=== PATIENT | female | born 1940 | race Caucasian/White ===

== ENCOUNTER 2024-02-07 20:36 | Inpatient (IN) | payer MEDICARE, OTHER, SELFPAY ==
[2024-02-07] VITALS (9 sets, daily range): BP systolic 125–142; BP diastolic 49–71; BMI 16.1
--- NOTE | 2024-02-07 14:17 | ED.GENMED ---
History of Present Illness
General
Chief Complaint: Swelling
Source: patient
Time Seen by Provider: 02/07/24 13:50
History of Present Illness
History of Present Illness:
Patient is a 83-year-old woman with history of myelodysplastic syndrome followed by Krystal Zepeda not on anticoagulation, CKD, history of GI bleed, hypertension, valvular disease followed by cardiology here at [facility] presenting to the
emergency department with lower extremity swelling and elevated bilirubin. Patient states that she went to her oncologist today for a routine checkup. She had blood work done a few days ago which does show elevated total bilirubin. She does have
history of elevated bilirubin. Per oncologist note it does appear that it was related to dilated CBD. She was supposed to follow-up with GI but has not. He sent here here for CT scan as well as possible MRCP. Patient does state that she has some
abdominal pain. No nausea no vomiting. Is able to tolerate p.o. In addition to those been having worsening bilateral lower extremity swelling. She is unaware if she is ever been diagnosed with heart failure. Per chart review it appears that
patient did have an echo done last year with normal EF. She is not on Lasix. She states that the swelling has acutely worsened. Her right leg is now also more erythematous and tender. She did have a small cut to the anterior manuel. Denies any
purulent drainage. It is weeping. She is not on anticoagulation. No history of DVT. She is having difficulty ambulating secondary to the pain no fevers or chills. She does state that she is never had an infection before.
Past History
Past History
ED Past Medical History: Arrthythmia (Atrial fibrillation), CHF, HTN, Renal failure and Other (myelodysplastic syndrome, chronic Mccormick, ambulatory dysfunction, colitis, pneumonia, GI bleeding.)
ED Past Surgical History: None
Social History
Tobacco: Non-smoker
Alcohol: None
Drug: None
Personal: Single
Living: halfway
Employment: Not employed
Family History
Family History: Other
Phy Exam
Physical Exam
Physical Exam:
GENERAL: in no acute distress
HEENT: normocephalic, extraocular movements intact, moist oral mucosa
NECK: normal inspection
RESPIRATORY: no respiratory distress, crackles at bases bilaterally
CARDIOVASCULAR: regular rate and rhythm
ABDOMEN/: soft, non-distended, tender into bilateral upper quadrants, no rebound or guarding
EXTREMITIES: Bilateral 3+ pitting edema. Right lower extremity with diffuse erythema to the lower leg anteriorly as well as to the dorsal foot, diffusely tender, some old scabs/ulcerations no purulent drainage
NEUROLOGIC: awake and alert, moves all extremities
SKIN: warm
Scores
Heart Failure Risk
Heart Failure Risk Score: Yes
History of Stroke or TIA: No
History of intubation for respiratory distress: No
Heart rate on ED arrival >/= 110: No
SaO2 <90% on arrival on room air: Yes
HR >/=110 during 3min walk test (or too ill to perform test): Yes
ECG has acute ischemic changes: No
Urea >/=12mmol/L (BUN 33.6mg/dL): Yes
Serum CO2>/=35mmol/L: No
Troponin I or T elevated to [place] Level (0.4mg/dL): No
NT-proBNP >/=5,000ng/L (5,000pg/ml): Yes
HF Risk Score: 5
Admission Status: VERY HIGH RISK 39.8% Consider admission to hospital
Course
Orders/Labs/Results
Orders:
Orders
02/07/24 14:16
Electrocardiogram (*1) Urgent
Reason for Study: Abdominal Pain
EKG- Treatment ONCE
CR Chest - 2 Views Urgent
Comment:
Reason For Exam: SOB, crackles bases
US Periph Venous LOWER Ext Brijesh Urgent
Comment:
Reason For Exam: BLE edema
02/07/24 14:43
Complete Blood Count/With Diff Urgent
Comprehensive Metabolic Panel Urgent
Magnesium Urgent
NT-proBNP Urgent
Urinalysis Reflex To Culture Urgent
Date Specimen was Collected: 02/07/24
Time Specimen was Collected: 14:21
Urine Microscopic Reflex Cult Urgent
Urine Culture Urgent
MARLON Source: U
Specimen Description:
Date Specimen was Collected: 02/07/24
Time Specimen was Collected: 14:21
02/07/24 15:50
CT Abd/pel Without Iv Or Oral Urgent
Comment:
Reason For Exam: abdominal pain, elevated tbili
02/07/24 18:54
Cephalexin Monohydrate [Keflex] 500 mg PO NOW STA
Abnormal Lab Results
02/07/24
14:43
WBC 12.9 H 10^3/uL
(4.8-10.8)
RBC 2.35 L 10^6/uL
(4.20-5.40)
Hgb 8.7 L g/dL
(12.0-16.0)
Hct 27.1 L %
(37.0-47.0)
MCV 114.9 H fL
(81.0-99.0)
MCH 36.6 H pg
(27.0-31.0)
MCHC 31.9 L g/dL
(33.0-37.0)
RDW 33.5 H %
(11.5-14.5)
MPV 11.3 H fL
(7.4-10.4)
Abs Immat Gran (auto) 0.1 H 10^3/uL
(0-0.05)
Absolute Neuts (auto) 9.5 H 10^3/uL
(1.4-6.5)
Absolute Monos (auto) 1.2 H 10^3/uL
(0.1-0.6)
Immature Gran % 0.9 H %
(0-0.5)
Lymphocytes % 15.2 L %
(20.5-51.1)
Carbon Dioxide 20 L mmol/L
(22-30)
BUN 65 H mg/dl
(7-17)
Creatinine 1.7 H mg/dL
(0.6-1.0)
Glucose 152 H mg/dl
(70-99)
Calcium 10.4 H mg/dl
(8.4-10.2)
Total Bilirubin 3.6 H mg/dl
(0.2-1.3)
AST 51 H U/L
(14-36)
ALT 38 H U/L
(0-35)
Leukocyte Esterase Rfl 2+ A
(Negative)
Urine WBC (Reflex) 30-40 A /HPF
(0-5)
Urine Bacteria (Reflex) Many A
(Negative)
02/07/24 14:43
02/07/24 14:43
Vital Signs
Initial and Last Documented VS:
Initial Vital Signs
Temp Pulse Resp BP Pulse Ox
98.1 F 94 16 135/60 92
02/07/24 13:04 02/07/24 13:04 02/07/24 13:04 02/07/24 13:04 02/07/24 13:04
Last Documented Vital Signs
Temp Pulse Resp BP Pulse Ox
98.1 F 84 19 130/56 92
02/07/24 13:04 02/07/24 18:00 02/07/24 18:00 02/07/24 14:35 02/07/24 18:00
MDM/Problems Addressed
Differential Diagnosis Includes:
Patient is a 83-year-old woman with complicated history including MDS, A-fib not on anticoagulation, CKD, hypertension, valvular disease, possible history of heart failure in the past presenting to the emergency department with elevated bilirubin as
well as lower extremity swelling. She was sent in per her oncologist. Vitals are unremarkable and exam is notable for bilateral crackles at the bases, abdominal tenderness as well as 3+ pitting edema bilaterally with erythema to the right lower
extremity.
Differential: New onset heart failure versus pneumonia versus cholelithiasis versus malignancy versus cellulitis versus DVT
MDM: Regarding patient's bilateral lower extremity edema concern for new onset heart failure given the crackles as well as bilateral extremity edema. Could also be a DVT as she is not on anticoagulation. However there is an area of erythema with a
wound that is consistent with cellulitis. Elevated total bilirubin could be from the MDS versus gallbladder etiology. Could also be secondary to worsening liver function. Will check blood work EKG chest x-ray DVT study and CT scan of the abdomen.
Patient likely will need admission.
*Radiology
Radiology exam reviewed: radiology read reviewed
*Critical Care Note
Total Time (30-74mins, 75-104mins- exclusive of procedures): Not Applicable
Update Note
Update Note:
Nursing did call as patient did become hypoxic to the mid 80s. Placed on 3 L nasal cannula. Chest x-ray per my interpretation with atelectasis that is similar to prior. No large pleural effusion. Blood work is notable for elevated BNP. It is
appear that she does have a UTI. DVT study is negative. CT scan as below. CBD is dilated similar to prior. Repeat abdominal exam does show very mild tenderness. Anasarca seen diffusely. Concern for cardiohepatic syndrome versus new onset heart
failure. Will treat with antibiotics to cover the urine infection and possible cellulitis given the erythema overlying right lower extremity. Will start to wean nasal cannula as tolerated. Patient will need admission.
CT abdomen pelvis:
Linear and band shaped opacities within the visualized lower lungs, likely representing chronic atelectasis and/or scarring.
Minimal amount of pleural fluid in the visualized right lower hemithorax.
No gross abnormality of the gallbladder. There is central intrahepatic bile duct dilation as well as dilation of the common hepatic duct and the common bile duct.
Hepatomegaly. Cirrhotic contour of the liver. Diffusely increased attenuation of the liver with differential considerations discussed above.
Small amount of ascites, mainly adjacent to the liver, increased from previous examination.
Diffuse anasarca with significant increased from previous examination. This includes edema within the mesentery of the abdomen and pelvis.
Bony degenerative changes as described.
ED Attending Note
-
Portions of this chart may have been created with voice recognition software.� Occasional wrong word or��sound alike� substitutions may have occurred due to the inherent limitations of voice recognition software.
Discharge Plan
Departure
Patient Disposition: Admit
Date of Disposition: 02/07/24
Time of Disposition: 19:08
Admit to doctor: julito
Presentation/result/management discussed w/ accepting MD/DO: Hospitalist
Discharge Problem:
Volume overload, Acute UTI, Elevated bilirubin
Prescriptions:
No Action
cholecalciferol (vitamin D3) 2,000 UNITS tablet
2,000 units PO DAILY
Theragen Tablet
1 tab PO DAILY
calcium carbonate [Calcium 500] 500 mg calcium (1,250 mg) Tablet,Chewable
1,000 mg PO DAILY
[id number]-[id number]-Mnymyhrzp serr [Osteo Bi-Flex (5-Loxin)] 1,500-400-100 mg-unit-mg Tablet
1 tab PO BID
loperamide 2 MG capsule
2 mg PO QPM
diltiazem HCl 180 MG capsule,extended release 24hr
180 mg PO BID
Referrals:
Jacquelin Perez MD [Family Provider] -
Interventions
Interventions:
*Risk Screen - Suicide Last Done: 02/07/24 13:04
*General Assessment Last Done: 02/07/24 13:04
*Neglect/Abuse Screening Last Done: 02/07/24 13:04
ED- Fall Risk Assessment Last Done: 02/07/24 14:47
*ED COVID-19 Vaccine History Last Done: 02/07/24 14:47
ED- Cardiac Assessment Last Done: 02/07/24 14:47
ED- Pulmonary Assessment Last Done: 02/07/24 14:47
ED-Skin Assessment Last Done: 02/07/24 14:47
Discharge Date and Time
Print Language: DOMINICAN
[2024-02-07 15:23] LABS: NT-proBNP 8820 pg/ml
[2024-02-07 15:25] LABS: % Basophils 0.4 % (0-2); % Eosinophils 0.8 % (0-6); % Immature Granulocytes 0.9 % (0-0.5); % Lymphocytes 15.2 % (20.5-51.1); % Monocytes 9.3 % (1.7-9.3); % Neutrophils 73.6 % (42.2-75.2); Absolute Basophils 0.1 10^3/uL (0-0.2); Absolute Eosinophils 0.1 10^3/uL (0-0.7); Absolute Immature Granulocytes 0.1 10^3/uL (0-0.05); Absolute Lymphocytes 1.9 10^3/uL (1.2-3.4); Absolute Monocytes 1.2 10^3/uL (0.1-0.6); Absolute Neutrophils 9.5 10^3/uL (1.4-6.5); Anisocytosis 2+; Hematocrit 27.1 % (37.0-47.0); Hemoglobin 8.7 g/dL (12.0-16.0); Hypochromasia 1+; Macrocytosis 3+; Mean Corp Hgb Conc. 31.9 g/dL (33.0-37.0); Mean Corpuscular Hgb 36.6 pg (27.0-31.0); Mean Corpuscular Volume 114.9 fL (81.0-99.0); Mean Platelet Volume 11.3 fL (7.4-10.4); Normal RBC Morphology No; Nucleated Red Blood Cells % 0.7 %; Platelet Count 278 10^3/uL (130-400); Poikilocytosis 1+; Red Blood Cell Count 2.35 10^6/uL (4.20-5.40); Red Cell Dist. Width 33.5 % (11.5-14.5); Target Cells 2+; White Blood Cell Count 12.9 10^3/uL (4.8-10.8)
[2024-02-07 15:26] LABS: Tear Drop Red Blood Cells 2+
[2024-02-07 15:32] LABS: ALT (SGPT) 38 U/L (0-35); AST (SGOT) 51 U/L (14-36); Albumin 4.4 g/dl (3.5-5.0); Alkaline Phosphatase 55 U/L (38-126); Blood Urea Nitrogen 65 mg/dl (7-17); Calcium 10.4 mg/dl (8.4-10.2); Carbon Dioxide 20 mmol/L (22-30); Chloride 106 mmol/L (98-107); Estimated Creatinine Clearance 18 ml/min; Glucose 152 mg/dl (70-99); Magnesium 1.8 mg/dl (1.6-2.3); Potassium 4.8 mmol/L (3.5-5.1); Sodium 136 mmol/L (135-145); Total Bilirubin 3.6 mg/dl (0.2-1.3); Total Protein 7.3 g/dl (6.3-8.2); eGFR 29.57
[2024-02-07 17:58] LABS: Urine Albumin Trace (Neg - Trace); Urine Bilirubin Negative (Negative); Urine Character Slightly Cloudy (Clear); Urine Color Yellow; Urine Glucose Negative (Negative); Urine Ketone Negative (Negative); Urine Leukocyte 2+ (Negative); Urine Nitrite Negative (Negative); Urine Occult Blood Negative (Negative); Urine Specific Gravity 1.015 (<1.030); Urine Urobilinogen Negative (Neg - 1+)
[2024-02-07 18:06] LABS: Urine Bacteria Many (Negative)
[2024-02-07 18:07] LABS: Urine Red Blood Cell 0-2 /HPF (0-2); Urine Squamous Cell 0-2 /LPF (Few); Urine White Cell 30-40 /HPF (0-5)
[2024-02-07] MEDS: KEFLEX 500 MG PO (19:10)
--- NOTE | 2024-02-07 19:10 | HPS.HSE ---
Family Physician
-
Family Physician: Jacquelin Perez
Chief Complaint
-
swelling, abnormal outpatient labs
History of Present Illness
Ms. Hemalatha Sarmiento is a 83 yo woman with hx MDS follwed at [facility], chronic anemia, CKD, paroxysmal atrial fibrillation, HFpEF, severe pulmonary HTN, primary HTN presents to the ER with increased LE swelling and outpatient labs showing elevated
bilirubin. She was sent in from Oncology office.
Patient states that her legs have been swollen for a while but usually controlled by elevating them at night and wearing compression stockings. Over the last few days they both have become increasingly swollen and right one is red with weeping. No
fevers or chills. She denies chest pain or shortness of breath. She denies abdominal pain and denies dysuria. No headache.
Patient lives alone but states is in the process of moving and will look for more help at home. She uses a walker to get around and makes her own meals and takes her own medications.
Per Oncology note her T. Bili was 1.1 in 09/29, then up to 2.4, here it is 3.6.
Medical History
Past Medical History
Past Medical History: Reports Other (MDS follwed at [facility], chronic anemia, CKD, paroxysmal atrial fibrillation, HFpEF, severe pulmonary HTN, primary HTN)
Past Surgical History: Reports None
Social History
Tobacco: Non-smoker
Alcohol: None
Family History
Family History: Not pertinent
Allergies / Home Medications
Allergies reflects when Allergies were last updated in [employer].
Home Medications with original date entered in [employer]
Allergy/Medication List:
Allergies
Allergy/AdvReac Type Severity Reaction Status Date / Time
Sulfa (Sulfonamide Allergy Unknown Verified 01/04/22 00:16
Antibiotics)
venom-honey bee Allergy Swelling Verified 01/04/22 00:16
Home Medications
cholecalciferol (vitamin D3) 50 mcg (2,000 unit) tablet 2,000 units PO DAILY Supplement 12/01/21
calcium carbonate (Calcium 500) 1,000 mg PO DAILY 02/07/24
diltiazem HCl 180 mg capsule,extended release 24 hr 180 mg PO BID 02/07/24
glucosamine GHd-R3-Cxsfwqugj rosi 1,500 mg-400 unit-100 mg tablet (Osteo Bi-Flex (5-Loxin)) 1 tab PO BID 02/07/24
loperamide 2 mg capsule 2 mg PO QPM 02/07/24
therapeutic multivitamin 1 tab PO DAILY 02/07/24
Review of Systems
-
History Source: Patient
A 12 point ROS was completed and negative except as noted: Yes
Physical Exam
Vital Signs
Vital Signs
Temp Pulse Resp BP Pulse Ox
98.1 F 84 19 130/56 92
02/07/24 13:04 02/07/24 18:00 02/07/24 18:00 02/07/24 14:35 02/07/24 18:00
Physical Exam
General: Appears Chronically Ill and Other (frail appearing)
HEENT: NormoCephalic and Anicteric
Respiratory: Rales
Cardiac: S1/S2, Murmur and JVD
GI: Soft and Non Tender
Musculoskeletal: Other (b/l 3+ pitting edema. RLE with erythema up to calf and weeping clear fluid; )
Skin: Warm and Dry
Neuro: AO x 3
Psych: Calm
Laboratory Results
-
02/07/24 14:43
02/07/24 14:43
Laboratory Results
Total Bilirubin 3.6 mg/dl (0.2-1.3) H 02/07/24 14:43
AST 51 U/L (14-36) H 02/07/24 14:43
ALT 38 U/L (0-35) H 02/07/24 14:43
Alkaline Phosphatase 55 U/L (38-126) 02/07/24 14:43
Data Reviewed
-
Diagnostic Radiology: Report Reviewed by me
Lab Data: Labs Reviewed by me
Impression/Plan
-
Ms. Hemalatha Sarmiento is a 83 yo woman with hx MDS follwed at [facility], CKD, paroxysmal atrial fibrillation, HFpEF, severe pulmonary HTN, primary HTN presents to the ER with increased LE swelling and outpatient labs showing elevated bilirubin found to
be in acute heart failure with RLE Cellulitis; elevated T. Bili in setting of dilated CBD and new finding of cirrhosis on CT.
Triage VS: T 98.1, P 94, RR 16, BP 135/60, SpO2 92%
LABS: WBC 12.9, Hg 8.7, PLT 278, Na 136, K+ 4.8, CO2 20, BUN 65, Cr 1.7, Glucose 152, Mag 1.8, T. Bili 3.6, AST 51, ALT 38, BNP 8820
UA with 30-40 WBC
CXR:
B/L LE US:
IMPRESSION: No evidence of deep venous thrombosis
3 cm left Ross cyst
CT A/P
IMPRESSION: Linear and band shaped opacities within the visualized lower lungs, likely representing chronic atelectasis and/or scarring.
Minimal amount of pleural fluid in the visualized right lower hemithorax.
No gross abnormality of the gallbladder. There is central intrahepatic bile duct dilation as well as dilation of the common hepatic duct and the common bile duct.
Hepatomegaly. Cirrhotic contour of the liver. Diffusely increased attenuation of the liver with differential considerations discussed above.- 'The liver has diffusely increased attenuation on this unenhanced examination, measuring 90 Hounsfield
units. Main differential considerations of hemosiderosis, hemachromatosis, Bj's disease, amiodarone, and gold therapy. Please correlate clinically.
Small amount of ascites, mainly adjacent to the liver, increased from previous examination.
Diffuse anasarca with significant increased from previous examination. This includes edema within the mesentery of the abdomen and pelvis.
Bony degenerative changes as described.
TTE 01/19/23
CONCLUSIONS
-Left ventricular ejection fraction is 70-75%. Normal regional wall motion.
-Enlarged right ventricular size. Normal right ventricular systolic function.
-Moderately to severely dilated left atrium. Moderately dilated right atrium.
-Mild to moderate mitral regurgitation.
-Severe tricuspid regurgitation. Estimated pulmonary artery pressure of 75-80
mmHg.
Compared to previous echo on 11/17/2021, PASP has slightly decreased (previously
100-105 mmHg).
Acute on Chronic Heart Failure preserved EF Exacerbation
Pulmonary Hypertension
Lower Extremity Swelling
-patient has been non-compliant in past with diuretics per [facility] notes. Today she states she is willing to take lasix
-per pulm note 04/30 (saw Dr. Ambrocio), workup negative for secondary causes of pulmonary hypertension, chronic anemia may be contributing. Per pulm she is not a candidate for pulmonary vasodilators given mitral disease and chronic anemia
-US negative for DVT
-admit to telemetry
-IV lasix 40 BID
-TTE tomorrow
-consult cardiology (sees Dr. Davis)
-daily weights, strict I/O, fluid restriction
Elevated Bilirubin with finding dilated CBD (dilation seen 2022)
Cirrhotic appearing liver on CT
chronic hepatomegaly from MDS
-direct bili 0.8
-consult Gastroenterology
RLE Cellulitis
Leukocytosis
-s/p Keflex in ER, will give IV Cefazolin in-house
-RLE Elevation
-US negative for DVT
Elevated WBC in urine - patient denies urinary symptoms
Paroxysmal Atrial Fibrillation
-patient has declined oral AC therapy
-ART HISTORIAN Diltiazem
Acute on chronic kidney disease
CKD 3b
-baseline creatinine 1.1-1.3; 1.7 on admit
-monitor closely with diuresis
MDS
chronic Anemia
-receives Retacrit 60,000 unit MOTH
-monitor Hg
DVT PPx hep subQ
DNR - discussed with patient on admission
76 minutes spent on patient evaluation, medical decision making, coordination of care
[2024-02-07 19:54] LABS: Direct Bilirubin 0.8 mg/dl (0.0-0.4); Iron 141 ug/dl (37-170)
[2024-02-07] MEDS: LASIX 40 MG IV (20:02)
[2024-02-07 20:03] LABS: Percent Saturation 96 % (20-50); Total Iron Binding Capacity 146 ug/dl (265-497)
[2024-02-07 20:51] LABS: Troponin I 0.071 ng/ml
[2024-02-07 20:55] LABS: Vitamin B12 > 1000 pg/ml (239-931)
[2024-02-07] MEDS: IMODIUM 2 MG PO (22:14)
[2024-02-07] MEDS: CARDIZEM CD 180 MG PO (22:14)
[2024-02-07] MEDS: HEPARIN 5000 UNITS SC (22:14)
[2024-02-08] VITALS (17 sets, daily range): BP systolic 110–131; BP diastolic 37–76; PULSE 81–84; O2SAT 98; BMI 16.1
[2024-02-08 06:01] LABS: Hematocrit 23.5 % (37.0-47.0); Hemoglobin 7.8 g/dL (12.0-16.0); Mean Corp Hgb Conc. 33.2 g/dL (33.0-37.0); Mean Corpuscular Hgb 37.3 pg (27.0-31.0); Mean Corpuscular Volume 112.4 fL (81.0-99.0); Mean Platelet Volume 11.7 fL (7.4-10.4); Platelet Count 266 10^3/uL (130-400); Red Blood Cell Count 2.09 10^6/uL (4.20-5.40); Red Cell Dist. Width 32.9 % (11.5-14.5); White Blood Cell Count 16.9 10^3/uL (4.8-10.8)
[2024-02-08 06:09] LABS: Troponin I 0.068 ng/ml
[2024-02-08 06:20] LABS: ALT (SGPT) 34 U/L (0-35); AST (SGOT) 42 U/L (14-36); Albumin 3.7 g/dl (3.5-5.0); Alkaline Phosphatase 53 U/L (38-126); Blood Urea Nitrogen 66 mg/dl (7-17); Calcium 9.7 mg/dl (8.4-10.2); Carbon Dioxide 21 mmol/L (22-30); Chloride 106 mmol/L (98-107); Direct Bilirubin 0.7 mg/dl (0.0-0.4); Estimated Creatinine Clearance 19 ml/min; Glucose 120 mg/dl (70-99); HDL Cholesterol 20 mg/dl; LDL Cholesterol, Calculated 62 mg/dl; Magnesium 1.6 mg/dl (1.6-2.3); Potassium 4.4 mmol/L (3.5-5.1); Sodium 135 mmol/L (135-145); Total Bilirubin 2.9 mg/dl (0.2-1.3); Total Cholesterol 108 mg/dl (50-199); Total Protein 6.3 g/dl (6.3-8.2); Triglyceride 131 mg/dl (10-149); Very Low Density Lipoprotein 26 mg/dl (0-30)
[2024-02-08] MEDS: ANCEF 5 IV ×2 (06:35→18:40)
[2024-02-08 06:51] LABS: TSH Reflex To Free T4 2.19 uIU/ml (0.47-4.68)
--- NOTE | 2024-02-08 08:24 | CON.HOSP ---
Family Physician
-
Family Physician: Jacquelin Perez
Chief Complaint
-
RLE redness and swelling
History of Present Illness
Medical History
Past Medical History
Past Medical History: Reports Arrhythmia, Cancer, CHF, HTN and Renal Failure
Social History
Tobacco: Non-smoker
Alcohol: Other
Drug: None
Family History
Family History: Reviewed & Not Pertinent and Other
Allergies / Home Medications
Allergies reflects when Allergies were last updated in [employer].
Home Medications with original date entered in [employer]
Allergy/Medication List:
Allergies
Allergy/AdvReac Type Severity Reaction Status Date / Time
Sulfa (Sulfonamide Allergy Unknown Verified 01/04/22 00:16
Antibiotics)
venom-honey bee Allergy Swelling Verified 01/04/22 00:16
Home Medications
cholecalciferol (vitamin D3) 50 mcg (2,000 unit) tablet 2,000 units PO DAILY Supplement 12/01/21
calcium carbonate (Calcium 500) 1,000 mg PO DAILY Supplement 02/07/24
diltiazem HCl 180 mg capsule,extended release 24 hr 180 mg PO BID Blood Pressure 02/07/24
glucosamine JMb-R9-Knakefici rosi 1,500 mg-400 unit-100 mg tablet (Osteo Bi-Flex (5-Loxin)) 1 tab PO BID Supplement 02/07/24
loperamide 2 mg capsule 2 mg PO QPM Diarrhea 02/07/24
therapeutic multivitamin 1 tab PO DAILY Supplement 02/07/24
Review of Systems
-
History Source: Patient
A 12 point Review of Systems was completed except as noted: Yes
Constitutional: Reports Fatigue
EENT: Reports No Symptoms
Abdomen/GI: Reports Abdominal Pain (Patient had lower abdominal pain 2 days ago but has resolved) and Constipated
: Reports Frequency
Musculoskeletal: Reports Edema
Physical Exam
Vital Signs
Vital Signs
Temp Pulse Resp BP Pulse Ox
98.1 F 85 20 126/51 93
02/07/24 13:04 02/08/24 08:00 02/08/24 08:00 02/08/24 08:00 02/08/24 05:15
Physical Exam
General: No Apparent Distress and Other (Appears cachectic)
HEENT: Anicteric
Respiratory: Clear
Cardiac: S1/S2
GI: Soft, Non Tender, Non Distended (Mildly distended), Normal Bowel Sounds and Organomegaly
Musculoskeletal: No Clubbing and Edema (Bilateral 3+ lower extremity edema. Diffuse erythema of right leg)
Skin: Dry and Other (Spider angioma visible on upper chest-multiple bruises over upper and lower extremities); Negative Jaundice
Neuro: Awake, Alert, Oriented and AO x 3
Psych: Calm; Negative Confused
Laboratory Results
-
Laboratory Results
02/08/24 05:36
02/08/24 05:36
Total Bilirubin 2.9 mg/dl (0.2-1.3) H 02/08/24 05:36
AST 42 U/L (14-36) H 02/08/24 05:36
ALT 34 U/L (0-35) 02/08/24 05:36
Alkaline Phosphatase 53 U/L (38-126) 02/08/24 05:36
Troponin I 0.068 ng/ml H* 02/08/24 05:36
--- NOTE | 2024-02-08 08:51 | CON.CAR ---
Consultation
Consultation Request
Date/Time Consultation Requested: 02/08/2024
Date/Time Consultation Performed: 02/08/2024
Requesting Provider: Dr. Ritter
Performing Provider: Dr. Mercado
Reason for Consultation: CHF
Medical History
-
Chief Complaint: SOB/YOSELIN
History of Present Illness:
83-year-old female (known to Dr. Lyman, her primary crane engineer) with paroxysmal atrial fibrillation (patient declines oral anticoagulation), severe tricuspid regurgitation with severe pulmonary hypertension, chronic HFpEF, MDS, CKD, previous GI
bleed. And ambulatory dysfunction (uses walker at home) presenting with worsening lower extremity edema and shortness of breath. The patient states that she has chronic shortness of breath, but has been having worsening edema over the past several
days whereby her legs are now weeping.
Past Medical History
Past Medical History: Arrhythmias (PAF), CHF (Chronic HFpEF) and HTN (Pulmonary hypertension)
Past Surgical History: Tonsilectomy
Social History
Tobacco: Non-Smoker
Alcohol: None
Drug: None
Living: Alone
Family History
Family History: Reviewed & Not Pertinent
Allergies / Home Medications
Allergy/AdvReac Type Severity Reaction Status Date / Time
Sulfa (Sulfonamide Allergy Unknown Verified 01/04/22 00:16
Antibiotics)
venom-honey bee Allergy Swelling Verified 01/04/22 00:16
�Medication �Instructions �Recorded �Confirmed �Type
cholecalciferol (vitamin D3) 50 2,000 units PO DAILY Supplement 12/01/21 02/07/24 History
mcg (2,000 unit) tablet
calcium carbonate (Calcium 500) 1,000 mg PO DAILY 02/07/24 02/07/24 History
diltiazem HCl 180 mg 180 mg PO BID 02/07/24 02/07/24 History
capsule,extended release 24 hr
glucosamine ZMg-E2-Lazaxxpuc 1 tab PO BID 02/07/24 02/07/24 History
rosi 1,500 mg-400 unit-100 mg
tablet (Osteo Bi-Flex (5-Loxin))
loperamide 2 mg capsule 2 mg PO QPM 02/07/24 02/07/24 History
therapeutic multivitamin 1 tab PO DAILY 02/07/24 02/07/24 History
Review of Systems
-
All other systems: Negative unless noted
Physical Exam
Vital Signs
Temp Pulse Resp BP Pulse Ox
98.1 F 85 20 126/51 93
02/07/24 13:04 02/08/24 08:00 02/08/24 08:00 02/08/24 08:00 02/08/24 05:15
Lab Results
02/08/24 05:36
02/08/24 05:36
Troponin I 0.068 ng/ml H* 02/08/24 05:36
Msg-Z-Wsgeejnliby Pept 8820 pg/ml 02/07/24 14:43
Physical Exam
General: No Apparent Distress and Comfortable
HEENT: Normocephalic
Respiratory: Crackles (Bibasilar)
Cardiac: S1/S2 (Normal), Regular Rhythm, Murmur (4/6) and Peripheral Edema (2+ bilateral)
Breast: Deferred by me
GI: Soft
Rectal: Deferred by Provider
Musculoskeletal: Edema (2+)
Skin: Warm
Neuro: AO x 3
Psych: Calm
Impression / Plan
-
83-year-old female (known to Dr. Lyman, her primary crane engineer) with paroxysmal atrial fibrillation (patient declines oral anticoagulation), severe tricuspid regurgitation with severe pulmonary hypertension, chronic HFpEF, MDS, CKD, previous GI
bleed. And ambulatory dysfunction (uses walker at home) presenting with worsening lower extremity edema and shortness of breath. The patient states that she has chronic shortness of breath, but has been having worsening edema over the past several
days whereby her legs are now weeping.
Acute on chronic HFpEF:
-Recommend Lasix 40 mg IV twice daily; patient is not on a standing diuretic at home because she says that it makes her go to the bathroom too much and she has difficulty with ambulation.
-Patient will likely not take an SGLT2 inhibitor as appears that she wants to minimize medications.
-Echocardiogram ordered by primary team.
Severe TR/pulmonary hypertension:
-Likely primary cause of CHF.
-Management as above.
Paroxysmal atrial fibrillation:
-Patient declines oral anticoagulation.
CKD:
-Monitor renal function with diuresis.
MDS:
-Management as per primary team.
Data Reviewed
-
EKG: Tracing Personally Visualized and interpreted (Normal sinus rhythm at 85 bpm with LAFB.)
Labs: Labs Reviewed by me
Old Records: Reviewed (Cardiology office note 09/24/2023.)
[2024-02-08] MEDS: LASIX 40 MG IV ×2 (09:17→17:33)
[2024-02-08] MEDS: HEPARIN 5000 UNITS SC ×2 (09:18→20:30)
[2024-02-08] MEDS: CARDIZEM CD 180 MG PO ×2 (09:18→20:29)
--- NOTE | 2024-02-08 11:45 | CON.GI ---
Addendum entered and electronically signed by Yamini Noel MD 02/08/24 19:18:
I personally performed a history and physical exam of the patient and discussed management with the resident. I reviewed the resident's note and agree with the documented findings and plan of care HPI/CC.
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 She also has history of atrial fibrillation and heart failure. She is presenting with cellulitis and
acute on chronic heart failure. GIs been consulted due to abnormal imaging. Abdominal CT showed hepatomegaly and cirrhotic contour of the liver. Platelets and INR are normal. Most like this is related to her chronic MDS and possibly also her
heart failure. Will get a Doppler ultrasound tomorrow for further evaluation. Low suspicion but I checked hepatitis serologies, and CT read also mentions the possibility of hemochromatosis and Bj's. Of note her ferritin is 4730 with iron sat
of 96. She needs outpatient HFE testing. Will order ceruloplasmin as well. There was also concern about common bile duct dilation. This is somewhat similar to previous. It is up to 13 mm and previously was 11 mm in 2021. Her bilirubin is 2.9
but direct 0.7 which is all consistent with indirect hyperbilirubinemia. No abdominal pain. Could consider MRI/MRCP in the future as well as possible outpatient FibroScan.
Original Note:
Medical History
Chief Complaint / HPI
Chief Complaint: Lower extremity cellulitis
History of Present Illness:
Patient is a 83 yo woman with PMH MDS (last treatment yesterday), CKD, chronic anemia (on Retacrit), paroxysmal atrial fibrillation, HFpEF, pulmonary HTN, essential HTN who presented to the ER with RLE Cellulitis and acute on chronic HF.
She was found to have elevated T. Bili, dilated CBD. CT findings show the liver has craniocaudal dimension of 23.8 cm. The liver has a nodular cirrhotic contour suggestive of cirrhosis.
Patient mentions increased fatigue and weakness during the past few months although she has not noticed any weight loss. No recent confusions or sleep disturbances. She mentions dark tea-colored urine for the past year. Also gives a history of
easy bruising. She did not mention any recent hematochezia or melena or hematemesis. Patient is aware of hepatomegaly since MDS diagnosis. She has recently been more constipated and her last bowel movement was 2 days ago. Does not have poor
appetite. No recent nausea/vomiting. Does not give a history of pruritus.
Past Medical History
Past Medical History: Arrhythmias, Cancer, CHF, HTN and Renal Failure
Social History
Tobacco: Non-Smoker
Alcohol: Other (Does not give a history of chronic alcohol use in the past)
Drug: None
Family History
Family History: Reviewed & Not Pertinent (Does not give a history of Bj's, alpha-1 antitrypsin deficiency, or hemochromatosis in family)
Allergies / Home Medications
Allergy/AdvReac Type Severity Reaction Status Date / Time
Sulfa (Sulfonamide Allergy Unknown Verified 01/04/22 00:16
Antibiotics)
venom-honey bee Allergy Swelling Verified 01/04/22 00:16
�Medication �Instructions �Recorded
cholecalciferol (vitamin D3) 50 2,000 units PO DAILY Supplement 12/01/21
mcg (2,000 unit) tablet
calcium carbonate (Calcium 500) 1,000 mg PO DAILY Supplement 02/07/24
diltiazem HCl 180 mg 180 mg PO BID Blood Pressure 02/07/24
capsule,extended release 24 hr
glucosamine [id number] 1 tab PO BID Supplement 02/07/24
rosi 1,500 mg-400 unit-100 mg
tablet (Osteo Bi-Flex (5-Loxin))
loperamide 2 mg capsule 2 mg PO QPM Diarrhea 02/07/24
therapeutic multivitamin 1 tab PO DAILY Supplement 02/07/24
Review of Systems
-
History Source: Patient
All other systems: A 12 pt ROS was Negative except as stated above in HPI
Constitutional: Reports Fatigue
Abdomen/GI: Reports Abdominal Pain (Patient had generalized lower abdominal pain 2 days ago but has now resolved) and Constipated
: Reports Frequency
Musculoskeletal: Reports Edema
Vital Signs
Temp Pulse Resp BP Pulse Ox
98.1 F 85 20 126/51 95
02/07/24 13:04 02/08/24 08:00 02/08/24 08:00 02/08/24 08:00 02/08/24 09:59
Physical Exam
Exam
General: Other (Patient appears cachectic)
HEENT: Anicteric
Respiratory: Clear
Cardiac: S1/S2
GI: Soft, Non Tender, Normal Bowel Sounds, Distended (Mildly distended), Organomegaly and Other (No hematemesis no melena no hematochezia)
Musculoskeletal: Edema (Bilateral 3+ pitting edema)
Skin: Dry and Other (Non pruritic, no visible jaundice, multiple bruises over extremities, telangiectasias on upper chest)
Neuro: Awake, Alert, Oriented and AO x 3
Psych: Calm
Results
WBC 16.9 10^3/uL (4.8-10.8) H 02/08/24 05:36
Hgb 7.8 g/dL (12.0-16.0) L 02/08/24 05:36
Hct 23.5 % (37.0-47.0) L 02/08/24 05:36
MCV 112.4 fL (81.0-99.0) H 02/08/24 05:36
Plt Count 266 10^3/uL (130-400) 02/08/24 05:36
Absolute Neuts (auto) 9.5 10^3/uL (1.4-6.5) H 02/07/24 14:43
Sodium 135 mmol/L (135-145) 02/08/24 05:36
Potassium 4.4 mmol/L (3.5-5.1) 02/08/24 05:36
Chloride 106 mmol/L (98-107) 02/08/24 05:36
Carbon Dioxide 21 mmol/L (22-30) L 02/08/24 05:36
BUN 66 mg/dl (7-17) H 02/08/24 05:36
Creatinine 1.6 mg/dL (0.6-1.0) H 02/08/24 05:36
Calcium 9.7 mg/dl (8.4-10.2) 02/08/24 05:36
Total Bilirubin 2.9 mg/dl (0.2-1.3) H 02/08/24 05:36
AST 42 U/L (14-36) H 02/08/24 05:36
ALT 34 U/L (0-35) 02/08/24 05:36
Alkaline Phosphatase 53 U/L (38-126) 02/08/24 05:36
Diagnostic Image Results:
02/07/24
No gross abnormality of the gallbladder. There is central intrahepatic bile duct dilation as well as dilation of the common hepatic duct and the common bile duct.
Hepatomegaly. Cirrhotic contour of the liver. Diffusely increased attenuation of the liver.
Small amount of ascites, mainly adjacent to the liver, increased from previous examination.
Diffuse anasarca with significant increased from previous examination. This includes edema within the mesentery of the abdomen and pelvis.
Prior GI Procedures:
EGD:
Colonoscopy:
12/02/21
Colon, biopsy:
Colonic mucosa with nonspecific, mild chronic inflammation and congestion
Assessment / Plan
-
IMPRESSION:
Patient is a 83 yo woman with PMH MDS (last treatment yesterday), CKD, chronic anemia (on Retacrit), paroxysmal atrial fibrillation, HFpEF, pulmonary HTN, essential HTN who presented to the ER with RLE Cellulitis and acute on chronic HF.
She was found to have elevated T. Bili, dilated CBD. CT findings show the liver has craniocaudal dimension of 23.8 cm. The liver has a nodular cirrhotic contour suggestive of cirrhosis.
AST slightly elevated. Current total bili is 2.9, direct bili 0.7. Serum protein and albumin on the lower normal range. PT elevated (16.3). Plt count normal. Na normal.
PLAN:
- Abd ultrasound to evaluate increased echogenicity, portal hypertension, PVT, HVT
- Cirrhosis workup including HCV and HBV panel
- May consider EGD in the following days
- Consider blood transfusion if hemoglobin drops to less than 7.
-
-
Thank you for consultation and allowing me to participate in the patient's care. Please call the correctional classification counselor GI physician during the after hours with any questions or concerns.
--- NOTE | 2024-02-08 14:45 | W.PN.HOSP.TC ---
Today's Communication/Plan
-
diuresis
GI recs
Hep panel
Assessment / Plan
Assessment / Plan
Physical Exam
General: Appears Chronically Ill and Other (frail appearing)
HEENT: NormoCephalic and Anicteric
Respiratory: Rales
Cardiac: S1/S2, Murmur and JVD
GI: Soft and Non Tender
Musculoskeletal: Other (b/l 3+ pitting edema. RLE with erythema up to calf and weeping clear fluid; )
Skin: Warm and Dry
Neuro: AO x 3
Psych: Calm
Acute on Chronic Heart Failure preserved EF Exacerbation
Pulmonary Hypertension
Lower Extremity Swelling
-patient has been non-compliant in past with diuretics per [facility] notes. Today she states she is willing to take lasix
-per pulm note 04/30 (saw Dr. Ambrocio), workup negative for secondary causes of pulmonary hypertension, chronic anemia may be contributing. Per pulm she is not a candidate for pulmonary vasodilators given mitral disease and chronic anemia
-US negative for DVT
-admit to telemetry
-IV lasix 40 BID
-consult cardiology (sees Dr. Davis)
-daily weights, strict I/O, fluid restriction
#Elevated Troponin
-no chest pain
-most likely 2/2 to non ischemic myocardial injury/CKD
-Cards on board
Elevated Bilirubin with finding dilated CBD (dilation seen 2022)
Cirrhotic appearing liver on CT
chronic hepatomegaly from MDS
-most likely resultant from MDS along with chronicity of CHF
-direct bili 0.8
-consult Gastroenterology
RLE Cellulitis
Leukocytosis
-s/p Keflex in ER, will give IV Cefazolin in-house
-RLE Elevation
-US negative for DVT
Severe TR/Pulmonary Hypertension
likely 2/2 to CHF
Asymptomatic Bacteruria- patient denies urinary symptoms
Paroxysmal Atrial Fibrillation
-patient has declined oral AC therapy
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
Acute on chronic kidney disease
CKD 3b
-baseline creatinine 1.1-1.3; 1.7 on admit
-monitor closely with diuresis
MDS
chronic Anemia
-receives Retacrit 60,000 unit MOTH
-monitor Hg
DVT PPx hep subQ
Anticipated Discharge: > 48 hours
Subjective/Interval History
-
Date of Service: February 08, 2024
no acute events
Objective Data
-
Labs:
Laboratory Results
02/08/24
05:36
WBC 16.9 H
Hgb 7.8 L
Hct 23.5 L
Plt Count 266
Sodium 135
Potassium 4.4
Chloride 106
Carbon Dioxide 21 L
BUN 66 H
Creatinine 1.6 H
Glucose 120 H
Calcium 9.7
Total Bilirubin 2.9 H
AST 42 H
ALT 34
Alkaline Phosphatase 53
Vital Signs:
Vital Signs
Temp Pulse Resp BP Pulse Ox
98.1 F 85 20 126/51 95
02/07/24 13:04 02/08/24 08:00 02/08/24 08:00 02/08/24 08:00 02/08/24 09:59
Review of Systems
-
History Source: Patient
All other systems: Not reviewed unless documented
Data Reviewed
-
CT Scan: Image personally visualized and interpreted and Report Reviewed by me
Ultrasound: Image personally visualized and interpreted and Report Reviewed by me
Labs: Labs Reviewed by me
[2024-02-08 16:01] LABS: Troponin I 0.058 ng/ml
[2024-02-08 16:53] LABS: Hepatitis B Surface Antigen Negative (Negative)
[2024-02-08 17:11] LABS: Hepatitis B Surface Antibody Negative; Hepatitis C Antibody Negative (Negative)
[2024-02-08] MEDS: IMODIUM 2 MG PO (17:33)
[2024-02-09 03:21] VITALS: BP 121/48
[2024-02-09] MEDS: ANCEF 5 IV ×2 (04:54→17:08)
[2024-02-09 06:00] VITALS: BMI 13.5
[2024-02-09 07:29] LABS: ALT (SGPT) 19 U/L (0-35); AST (SGOT) 42 U/L (14-36); Albumin 3.1 g/dl (3.5-5.0); Alkaline Phosphatase 41 U/L (38-126); Blood Urea Nitrogen 81 mg/dl (7-17); Carbon Dioxide 21 mmol/L (22-30); Chloride 105 mmol/L (98-107); Direct Bilirubin 0.4 mg/dl (0.0-0.4); Estimated Creatinine Clearance 15 ml/min; Glucose 148 mg/dl (70-99); Potassium 4.3 mmol/L (3.5-5.1); Sodium 135 mmol/L (135-145); Total Bilirubin 1.4 mg/dl (0.2-1.3); Total Protein 5.6 g/dl (6.3-8.2); eGFR 29.57
[2024-02-09 08:16] VITALS: BP 117/44
[2024-02-09] MEDS: CARDIZEM CD 180 MG PO ×2 (08:50→20:15)
[2024-02-09] MEDS: HEPARIN 5000 UNITS SC (08:51)
[2024-02-09] MEDS: LASIX 40 MG IV (08:51)
--- NOTE | 2024-02-09 09:02 | W.PN.GI.CBS2 ---
Today's Communication / Plan
-
US today if pt agreeable, follow up hb
Assessment / Plan
-
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 She also has history of atrial fibrillation and heart failure. She is presenting with
cellulitis and acute on chronic heart failure. GIs been consulted due to abnormal imaging. Abdominal CT showed hepatomegaly and cirrhotic contour of the liver. Platelets and INR are normal. Most like this is related to her chronic MDS and
possibly also her heart failure. Will get a Doppler ultrasound today for further evaluation - I d/w patient importance of test unclear if she will be compliant as she wants to eat. Low suspicion but I checked hepatitis serologies, and CT read also
mentions the possibility of hemochromatosis and Bj's. Of note her ferritin is 4730 with iron sat of 96. She needs outpatient HFE testing. Ceruloplasmin ordered. There was also concern about common bile duct dilation. This is somewhat
similar to previous. It is up to 13 mm and previously was 11 mm in 2021. Her bilirubin is 2.9 but direct 0.7 which is all consistent with indirect hyperbilirubinemia. No abdominal pain. Could consider MRI/MRCP in the future as well as possible
outpatient FibroScan.
Of note her hb dropped from 8/1 to 8/2, this AM hb is pending. Per patient normal brown BM yesterday. She has chronic anemia.
Subjective
Subjective
Date of Service: February 09, 2024
Patient hungry
Objective
Data Reviewed
Laboratory Data:
Laboratory Results
02/09/24 06:40
Laboratory Results
Magnesium 1.6 mg/dl (1.6-2.3) 02/08/24 05:36
Total Bilirubin 1.4 mg/dl (0.2-1.3) H D 02/09/24 06:40
AST 42 U/L (14-36) H 02/09/24 06:40
ALT 19 U/L (0-35) 02/09/24 06:40
Alkaline Phosphatase 41 U/L (38-126) 02/09/24 06:40
Vital Signs and I&O:
Vital Signs
Temp Pulse Resp BP Pulse Ox
97.8 F 74 18 117/44 93
02/09/24 08:16 02/09/24 08:50 02/09/24 08:16 02/09/24 08:50 02/09/24 08:16
I&O
02/08/24 02/09/24 02/10/24
06:59 06:59 06:59
Intake Total 5 / 5
Balance / 5
Physical Exam
Physical Exam
GI: Non Distended and Non Tender
Extremities: Other (cellulitis)
[2024-02-09 09:14] LABS: Hematocrit 20.7 % (37.0-47.0); Hemoglobin 7.1 g/dL (12.0-16.0); Mean Corp Hgb Conc. 34.3 g/dL (33.0-37.0); Mean Corpuscular Volume 107.8 fL (81.0-99.0); Platelet Count 261 10^3/uL (130-400); Red Blood Cell Count 1.92 10^6/uL (4.20-5.40); Red Cell Dist. Width 32.2 % (11.5-14.5); White Blood Cell Count 9.4 10^3/uL (4.8-10.8)
--- NOTE | 2024-02-09 10:34 | W.PN.UPDATE ---
Update Note
Progress Note Update
I received msg from nursing guest service supervisor
No US in house on weekend
Will let pt eat and have US come in am
Put in NPO order
hb dropped to 7.1
will repeat at 2pm
--- NOTE | 2024-02-09 11:47 | W.PN.CD ---
Addendum entered and electronically signed by Jorge L Mercado MD 02/09/24 13:16:
Patient seen and examined in collaboration with KEYING MACHINE OPERATOR; agree with below.
-Volume status improved.
-Can discharge on Lasix 40 mg daily.
-Outpatient follow-up with Cardiology.
Addendum entered and electronically signed by Farida Byrd NP 02/09/24 12:32:
Pt. with 4 bt. NSVT on tele, Asymptomatic. Con't dilt.
Original Note:
Today's Communication / Plan
-
repeat weight today
con't lasix likely transition to po tomorrow
Impression / Plan
-
Pt states breathing is improved. No CP or new complaints.
83-year-old female (known to Dr. Lyman, her primary home energy rater) with paroxysmal atrial fibrillation (patient declines oral anticoagulation), severe tricuspid regurgitation with severe pulmonary hypertension, chronic HFpEF, MDS, CKD, previous GI
bleed. And ambulatory dysfunction (uses walker at home) presenting with worsening lower extremity edema and shortness of breath. The patient states that she has chronic shortness of breath, but has been having worsening edema over the past several
days whereby her legs are now weeping.
Acute on chronic HFpEF:
-Lasix 40 mg IV twice daily; patient is not on a standing diuretic at home because she says that it makes her go to the bathroom too much and she has difficulty with ambulation.
-Patient will likely not take an SGLT2 inhibitor as appears that she wants to minimize medications.
-Echocardiogram this admit [id number], enlarged RV, normal RV function, Ao sclerosis,severe TR [id number]
-todays weight is significantly down from 45kg to 37 kg. Will ask they reweigh to confirm
-renal function stable with creat 1.6-1.7 this admit
Severe TR/pulmonary hypertension:
-Likely primary cause of CHF.
-Management as above.
Paroxysmal atrial fibrillation:
-Patient declines oral anticoagulation.
CKD:
-Monitor renal function with diuresis.
MDS:
-Management as per primary team.
Physical Exam
Vital Signs/Labs
Vital Signs
Temp Pulse Resp BP Pulse Ox
97.8 F 74 18 117/44 93
02/09/24 08:16 02/09/24 08:50 02/09/24 08:16 02/09/24 08:50 02/09/24 08:16
02/08/24 02/09/24 02/10/24
06:59 06:59 06:59
Actual Weight 45.359 kg 37.79 kg
02/09/24 06:40
Magnesium 1.6 mg/dl (1.6-2.3) 02/08/24 05:36
Triglycerides 131 mg/dl (10-149) 02/08/24 05:36
LDL Cholesterol, Calc 62 mg/dl 02/08/24 05:36
VLDL Cholesterol, Calc 26 mg/dl (0-30) 02/08/24 05:36
HDL Cholesterol 20 mg/dl 02/08/24 05:36
02/07/24
14:43
[id number] Pept 8820
LAB Results
02/07/24 02/08/24 02/08/24
20:20 05:36 08:13
Troponin I 0.071 H* 0.068 H* 0.060 H*
02/08/24
15:08
Troponin I 0.058 H*
Physical Exam
Constitutional: No acute distress
Cardiovascular: Rhythm & rate is regular and Pedal edema present (mild LE edema)
Respiratory: Respiratory effort normal and Lungs clear to auscul.
Neuro/Psych: AO x 3
Data Reviewed
-
Date of Service: February 09, 2024
Echo: Report Reviewed by me (Echo 02/08/24-Left ventricular ejection fraction is 70-75%, by visual assessment. Normal regional wall motion. Meghann EPIQ left ventricular global longitudinal strain is -18.3%. -Enlarged right ventricular size.
Normal right ventricular systolic function. -Moderately dilated left atrium. Moder)
Labs: Labs Reviewed by me
[2024-02-09 12:03] VITALS: BMI 13.5
[2024-02-09 12:26] VITALS: BMI 13.9
[2024-02-09 12:27] VITALS: BP 107/46
--- NOTE | 2024-02-09 13:21 | W.PN.HOSP.TC ---
Today's Communication/Plan
-
transition to PO lasix
monitor Hgb
US tomorrow
Assessment / Plan
Assessment / Plan
Physical Exam
General: Appears Chronically Ill and Other (frail appearing)
HEENT: NormoCephalic and Anicteric
Respiratory: Rales
Cardiac: S1/S2, Murmur and JVD
GI: Soft and Non Tender
Musculoskeletal: Other (b/l 3+ pitting edema. RLE with erythema up to calf and weeping clear fluid; )
Skin: Warm and Dry
Neuro: AO x 3
Psych: Calm
Acute on Chronic Heart Failure preserved EF Exacerbation
Pulmonary Hypertension
Lower Extremity Swelling
-patient has been non-compliant in past with diuretics per [facility] notes. Today she states she is willing to take lasix
-per pulm note 04/30 (saw Dr. Ambrocio), workup negative for secondary causes of pulmonary hypertension, chronic anemia may be contributing. Per pulm she is not a candidate for pulmonary vasodilators given mitral disease and chronic anemia
-US negative for DVT
-admit to telemetry
-IV lasix 40 BID -switch to 40mg PO lasix
-consult cardiology (sees Dr. Davis) - f/u outpatient
-daily weights, strict I/O, fluid restriction
#Elevated Troponin
-no chest pain
-most likely 2/2 to non ischemic myocardial injury/CKD
-Cards on board
Elevated Bilirubin with finding dilated CBD (dilation seen 2022)
Cirrhotic appearing liver on CT
chronic hepatomegaly from MDS
-most likely resultant from MDS along with chronicity of CHF(Congestive Hepatopathy)
-direct bili 0.8
-consult Gastroenterology
-US in AM
RLE Cellulitis
Leukocytosis
-s/p Keflex in ER, will give IV Cefazolin in-house
-RLE Elevation
-US negative for DVT
Severe TR/Pulmonary Hypertension
likely 2/2 to CHF
Asymptomatic Bacteruria- patient denies urinary symptoms
Paroxysmal Atrial Fibrillation
-patient has declined oral AC therapy
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
Acute on chronic kidney disease
CKD 3b
-baseline creatinine 1.1-1.3; 1.7 on admit
-monitor closely with diuresis
MDS
chronic Anemia
-receives Retacrit 60,000 unit MOTH
-monitor Hg - slow drop
-Elevated Ferritin - Needs workup outpatient
DVT PPx hep subQ
Anticipated Discharge: 24 - 48 hours
Subjective/Interval History
-
Date of Service: February 09, 2024
no acute events
Objective Data
-
Labs:
Laboratory Results
02/09/24 02/09/24 02/09/24
06:40 12:00 14:00
WBC 9.4
Hgb 7.1 L Cancelled Pending
Hct 20.7 L*
Plt Count 261
Sodium 135
Potassium 4.3
Chloride 105
Carbon Dioxide 21 L
BUN 81 H
Creatinine 1.7 H
Glucose 148 H
Calcium 9.0
Total Bilirubin 1.4 H D
AST 42 H
ALT 19
Alkaline Phosphatase 41
Vital Signs:
Vital Signs
Temp Pulse Resp BP Pulse Ox
97.9 F 90 18 107/46 94
02/09/24 12:27 02/09/24 12:27 02/09/24 12:27 02/09/24 12:27 02/09/24 12:27
I&O
02/08/24 02/09/24 02/10/24
06:59 06:59 06:59
Intake Total 5 / 5
Balance 5 / 5
Review of Systems
-
History Source: Patient
All other systems: Not reviewed unless documented
Data Reviewed
-
CT Scan: Image personally visualized and interpreted and Report Reviewed by me
Ultrasound: Image personally visualized and interpreted and Report Reviewed by me
Labs: Labs Reviewed by me
[2024-02-09 15:25] LABS: Hemoglobin 7.2 g/dL (12.0-16.0)
[2024-02-09 16:10] VITALS: BP 124/46
[2024-02-09] MEDS: IMODIUM 2 MG PO (17:08)
[2024-02-09 19:55] VITALS: BP 129/47
[2024-02-09] MEDS: HEPARIN SC (20:10)
--- NOTE | 2024-02-09 20:10 | PTCARENOTE ---
Attempted to give pt SQ heparin, unable to access any fat tissue on ABD to give injection. Pt refusing SCDs due to LES cellulitis/pain. House CASTING SUPERVISOR aware.
--- NOTE | 2024-02-09 21:06 | W.PN.UPDATE ---
Update Note
Progress Note Update
RN notified VOLUNTEER SERVICES SPECIALIST, patient requested to change code status. Patient seen and evaluated. Patient is AAOx3, capable of making decisions. Stated she wants to have CPR performed but no intubation. Code status changed to limited DNR.
[2024-02-09 23:36] VITALS: BP 134/51
[2024-02-10 03:09] VITALS: BP 120/43
[2024-02-10] MEDS: ANCEF 5 IV ×2 (05:05→17:18)
[2024-02-10 06:00] VITALS: BMI 13.2
[2024-02-10 07:35] VITALS: BP 125/50
[2024-02-10] MEDS: LASIX 40 MG PO (08:39)
[2024-02-10] MEDS: CARDIZEM CD 180 MG PO ×2 (08:39→19:49)
[2024-02-10] MEDS: HEPARIN 5000 UNITS SC ×2 (08:39→19:54)
[2024-02-10 10:49] VITALS: BMI 13.2
[2024-02-10 11:08] LABS: ALT (SGPT) 11 U/L (0-35); AST (SGOT) 30 U/L (14-36); Albumin 3.2 g/dl (3.5-5.0); Alkaline Phosphatase 54 U/L (38-126); Blood Urea Nitrogen 84 mg/dl (7-17); Calcium 9.9 mg/dl (8.4-10.2); Carbon Dioxide 20 mmol/L (22-30); Chloride 103 mmol/L (98-107); Direct Bilirubin 0.4 mg/dl (0.0-0.4); Estimated Creatinine Clearance 13 ml/min; Glucose 250 mg/dl (70-99); Potassium 3.9 mmol/L (3.5-5.1); Sodium 134 mmol/L (135-145); Total Bilirubin 1.1 mg/dl (0.2-1.3); Total Protein 5.9 g/dl (6.3-8.2); eGFR 25.88
[2024-02-10 11:27] LABS: Hematocrit 21.2 % (37.0-47.0); Hemoglobin 7.1 g/dL (12.0-16.0); Mean Corp Hgb Conc. 33.5 g/dL (33.0-37.0); Mean Corpuscular Hgb 37.8 pg (27.0-31.0); Mean Corpuscular Volume 112.8 fL (81.0-99.0); Mean Platelet Volume 12.2 fL (7.4-10.4); Platelet Count 212 10^3/uL (130-400); Red Blood Cell Count 1.88 10^6/uL (4.20-5.40); Red Cell Dist. Width 32.2 % (11.5-14.5); White Blood Cell Count 9.4 10^3/uL (4.8-10.8)
[2024-02-10 11:28] VITALS: BP 121/49
--- NOTE | 2024-02-10 13:04 | W.PN.HOSP.TC ---
Today's Communication/Plan
-
CT foot/XR
Abx
CRP/ESR
Podiatry COnsult
Monitor renal function with Lasix
Assessment / Plan
Assessment / Plan
Physical Exam
General: Appears Chronically Ill and Other (frail appearing)
HEENT: NormoCephalic and Anicteric
Respiratory: Rales
Cardiac: S1/S2, Murmur and JVD
GI: Soft and Non Tender
Musculoskeletal: Other (b/l 3+ pitting edema. RLE with erythema up to calf and weeping clear fluid; )
Skin: Warm and Dry
Neuro: AO x 3
Psych: Calm
Acute on Chronic Heart Failure preserved EF Exacerbation
Pulmonary Hypertension
Lower Extremity Swelling
-patient has been non-compliant in past with diuretics per [facility] notes. Today she states she is willing to take lasix
-per pulm note 04/30 (saw Dr. Ambrocio), workup negative for secondary causes of pulmonary hypertension, chronic anemia may be contributing. Per pulm she is not a candidate for pulmonary vasodilators given mitral disease and chronic anemia
-US negative for DVT
-admit to telemetry
-IV lasix 40 BID -switch to 40mg PO lasix daily
-consult cardiology (sees Dr. Davis) - f/u outpatient
-daily weights, strict I/O, fluid restriction
#Elevated Troponin
-no chest pain
-most likely 2/2 to non ischemic myocardial injury/CKD
-Cards on board
Elevated Bilirubin with finding dilated CBD (dilation seen 2022)
Cirrhotic appearing liver on CT
chronic hepatomegaly from MDS
-most likely resultant from MDS along with chronicity of CHF(Congestive Hepatopathy)
-direct bili 0.8
-Gastroenterology on board
-Ultrasound with evidence of cirrhotic morphology with small volume ascites, no evidence of acute cholecystitis
RLE Cellulitis, ?Abscess
Leukocytosis
-Right foot/toe with evidence of fluctuance
-s/p Keflex in ER, will give IV Cefazolin in-house
-RLE Elevation
-US negative for DVT
�F/u CT foot without contrast(due to SEGUN), x-ray to evaluate possible abscess
� Podiatry consulted
-ESR/CRP
#SEGUN v CKD
-cont to monitor while on lasix
-avoid nephrotoxic agents
-switch to PO lasix today
Pancreatic head/neck cystic focus
� Follow-up MRI abdomen outpatient
Severe TR/Pulmonary Hypertension
likely 2/2 to CHF
Hyponatremia
-mild
-ctm
Asymptomatic Bacteruria- patient denies urinary symptoms
Paroxysmal Atrial Fibrillation
-patient has declined oral AC therapy
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
Acute on chronic kidney disease
CKD 3b
-baseline creatinine 1.1-1.3; 1.7 on admit
-monitor closely with diuresis
MDS
chronic Anemia
-receives Retacrit 60,000 unit MOTH
-monitor Hg - slow drop
-Elevated Ferritin - Needs workup outpatient
DVT PPx hep subQ
Total time spent on today's encounter was 50 minutes which included time spent in counseling the patient/family regarding diagnosis and treatment plan as listed above, goals of care, and symptom management. Case was discussed with nursing staff,
specialists, and care coordinators/case management. All labs and imaging personally reviewed by me. Remainder the time spent in detailed review of previous records, lab data, imaging, and other medical provider documentation.
Anticipated Discharge: > 48 hours
Subjective/Interval History
-
Date of Service: February 10, 2024
No acute events
Objective Data
-
Labs:
Laboratory Results
02/10/24
10:08
WBC 9.4
Hgb 7.1 L
Hct 21.2 L
Plt Count 212
Sodium 134 L
Potassium 3.9
Chloride 103
Carbon Dioxide 20 L
BUN 84 H
Creatinine 1.9 H
Glucose 250 H
Calcium 9.9
Total Bilirubin 1.1
AST 30
ALT 11
Alkaline Phosphatase 54
Vital Signs:
Vital Signs
Temp Pulse Resp BP Pulse Ox
98.1 F 73 16 121/49 97
02/10/24 11:28 02/10/24 11:28 02/10/24 11:28 02/10/24 11:28 02/10/24 11:28
I&O
02/09/24 02/10/24 02/11/24
06:59 06:59 06:59
Intake Total 5 / 5 900 / 900
Balance 5 / 5 900 / 900
Review of Systems
-
History Source: Patient
All other systems: Not reviewed unless documented
Data Reviewed
-
CT Scan: Image personally visualized and interpreted and Report Reviewed by me
Ultrasound: Image personally visualized and interpreted and Report Reviewed by me
Labs: Labs Reviewed by me
--- NOTE | 2024-02-10 15:14 | W.PN.GI.CBS2 ---
Today's Communication / Plan
-
outpatient gi follow up, gi signing off
Assessment / Plan
-
83-year-old female past medical history of MDS follows with closely with a sliver cutter at outside facility with known hepatomegaly which she has been following. She also has history of atrial fibrillation and heart failure. She is presenting with
cellulitis and acute on chronic heart failure. GIs been consulted due to abnormal imaging. Abdominal CT showed hepatomegaly and cirrhotic contour of the liver. Platelets and INR are normal. Most like this is related to her chronic MDS and
possibly also her heart failure. Doppler US again shows cirrhosis and possible pancreatic lesion. Low suspicion but I checked hepatitis serologies, and CT read also mentions the possibility of hemochromatosis and Bj's. Of note her ferritin is
4730 with iron sat of 96. She needs outpatient HFE testing. Ceruloplasmin ordered. Would also benefit from outpatient fibroscan. There was also concern about common bile duct dilation on CT. This is somewhat similar to previous. It is up to 13
mm and previously was 11 mm in 2021. Her bilirubin is 2.9 but direct 0.7 which is all consistent with indirect hyperbilirubinemia. No abdominal pain. US shows CBD 9mm.
Hb stable, history of chronic anemia from MDS, no overt bleeding reported.
GI will sign off. I provided our card for outpatient follow up. Our office will also reach out to schedule her.
Please call with ?s or issues.
Subjective
Subjective
Date of Service: February 10, 2024
no gi event overnight
Objective
Data Reviewed
Laboratory Data:
Laboratory Results
02/10/24 10:08
02/10/24 10:08
Laboratory Results
Magnesium 1.6 mg/dl (1.6-2.3) 02/08/24 05:36
Total Bilirubin 1.1 mg/dl (0.2-1.3) 02/10/24 10:08
AST 30 U/L (14-36) 02/10/24 10:08
ALT 11 U/L (0-35) 02/10/24 10:08
Alkaline Phosphatase 54 U/L (38-126) 02/10/24 10:08
Vital Signs and I&O:
Vital Signs
Temp Pulse Resp BP Pulse Ox
98.1 F 73 16 121/49 97
02/10/24 11:28 02/10/24 11:28 02/10/24 11:28 02/10/24 11:28 02/10/24 11:28
I&O
02/09/24 02/10/24 02/11/24
06:59 06:59 06:59
Intake Total 5 / 5 900 / 900
Balance 5 / 5 900 / 900
Physical Exam
Physical Exam
GI: Distended and Non Tender
Extremities: Other (cellulitis)
[2024-02-10 15:35] VITALS: BP 121/48
--- NOTE | 2024-02-10 16:13 | PTCARENOTE ---
Pt AAO x3, SCHWARTZ; weak; tires easily. VSS. On nc 2 lpm- pulse ox 94%, pt denies SOB. Abd soft,non-tender, trip PO well. Incont urine. Pt keeping RLE elevated; c/o pain Rt foot/lower leg with movement/touch to site; refused offer of pain med- 'It's
fine unless someone touches my skin'. Resting in bed at present. Will continue to monitor.;
--- NOTE | 2024-02-10 16:20 | CM ---
Chart reviewed and pt visited to obtain history.
Hemalatha lives alone in a 2SH with 5 entry steps. Recently she has been sleeping on her couch because she has difficulty climbing the stairs.
She has a RW which she uses outside the home, but typically furniture walks to get around in the home.
History of SNF stays at [facility] and [facility].
PT shielaal recommends SNF, as she is not safe to return home alone.
Cm will continue to follow and coordinate d/c needs as indicated by continued hospitalization.
Pt does not have any local family and her brother/POA resides in [place]
Pharmacy: [facility] in [place]
PCP: Jacquelin Perez
[2024-02-10] MEDS: FLUSH (NSS) 1 FLUSH IV (17:18)
[2024-02-10] MEDS: IMODIUM 2 MG PO (17:18)
--- NOTE | 2024-02-10 20:28 | W.PN.UPDATE ---
Update Note
Progress Note Update
Reported by the nursing staff, that patient desat to 70s on RA complained of mild sob, was placed on 4 L of O2, SPO2 up to 96%. BP 135/54 Hr 82, RR 20, temp 98.2. Lung sound diminished on the exam.
Chest x-ray and duo nebs ordered.
[2024-02-10] MEDS: DUONEB 3 ML INH (20:38)
--- NOTE | 2024-02-10 21:00 | PTCARENOTE ---
Patients pulse ox in 70s on 2 L NC, RR 20 BP 135/54 HR 82 temp 98.7. Pulse ox with good pleth, checked pox on ear as well continues in 70s. Lung sounds diminished bilaterally. Pt stating chronic SOB due to MDS. Increased pt to 4 L NC pulse ox
93-96%. House SINGING TELEGRAM PERFORMER aware order for neb treatment, and portable CXR- results reviewed with SINGING TELEGRAM PERFORMER.
[2024-02-10] MEDS: LIDOCAINE 4% PATCH 1 PATCH TOPICAL (21:07)
[2024-02-10 23:00] VITALS: BP 129/46
--- NOTE | 2024-02-10 23:19 | PTCARENOTE ---
Pt with C/O R shoulder pain- stating chronic due to not having osteo bi flex. House LINE PALLETIZER notified order for lidocaine patch, pt stating relief.
[2024-02-11] MEDS: ANCEF 5 IV ×2 (05:11→17:22)
[2024-02-11 05:37] LABS: Transferrin 101 mg/dL (200-360)
[2024-02-11 06:00] VITALS: BMI 13.3
[2024-02-11 07:50] VITALS: BP 129/51
[2024-02-11] MEDS: CARDIZEM CD 180 MG PO ×2 (08:50→20:51)
[2024-02-11] MEDS: HEPARIN 5000 UNITS SC ×2 (08:55→20:51)
[2024-02-11 08:56] LABS: Hematocrit 20.4 % (37.0-47.0); Hemoglobin 6.6 g/dL (12.0-16.0); Mean Corpuscular Hgb 36.1 pg (27.0-31.0); Mean Corpuscular Volume 112.6 fL (81.0-99.0); Mean Platelet Volume 13.4 fL (7.4-10.4); Platelet Count 227 10^3/uL (130-400); Red Blood Cell Count 1.83 10^6/uL (4.20-5.40); Red Cell Dist. Width 31.9 % (11.5-14.5); White Blood Cell Count 9.2 10^3/uL (4.8-10.8)
[2024-02-11 09:11] LABS: ALT (SGPT) < 10 U/L (0-35); AST (SGOT) 30 U/L (14-36); Albumin 3.1 g/dl (3.5-5.0); Alkaline Phosphatase 51 U/L (38-126); Blood Urea Nitrogen 89 mg/dl (7-17); Carbon Dioxide 22 mmol/L (22-30); Chloride 104 mmol/L (98-107); Estimated Creatinine Clearance 14 ml/min; Glucose 155 mg/dl (70-99); Potassium 4.1 mmol/L (3.5-5.1); Sodium 138 mmol/L (135-145); Total Protein 5.8 g/dl (6.3-8.2); eGFR 27.61
[2024-02-11] MEDS: LASIX 40 MG PO (09:13)
[2024-02-11 09:14] LABS: Erythrocyte Sed Rate 62 mm/hour (0-20)
[2024-02-11] MEDS: RETACRIT 60000 UNITS SC (10:11)
--- NOTE | 2024-02-11 10:21 | W.PN.HOSP.TC ---
Addendum entered and electronically signed by Avni Dawson DO 02/11/24 15:37:
Underweight
Stage 2 medial back pressure injury, present on admission
Addendum entered and electronically signed by Avni Dawson, 02/11/24 10:40:
Hold off on podiatry consult as the foot is improving and there is no abscess on CT scan.
Original Note:
Today's Communication/Plan
-
Continue antibiotics
Transfuse
Podiatry consult
Assessment / Plan
Assessment / Plan
Gen-AAOx3, NAD
HEENT-NC, AT, anicteric, clear oral mm
Neck-supple
CV-reg, no M, +S1/S2
Lungs-clear B/L
Abd-soft, NT, ND
Ext-right pedal edema
Musculoskeletal-no cyanosis, clubbing
Skin-warm and dry, right dorsal foot soft tissue swelling with mild erythema and tenderness
Neuro-grossly non-focal
Psych-calm, cooperative
Acute on Chronic Heart Failure preserved EF Exacerbation
Pulmonary Hypertension
Lower Extremity Swelling
-patient has been non-compliant in past with diuretics per [facility] notes. Today she states she is willing to take lasix
-per pulm note 04/30 (saw Dr. Ambrocio), workup negative for secondary causes of pulmonary hypertension, chronic anemia may be contributing. Per pulm she is not a candidate for pulmonary vasodilators given mitral disease and chronic anemia
-Continue oral Lasix.
-Cardiology signed off, recommend outpatient follow-up.
-daily weights, strict I/O, fluid restriction
Acute nonischemic myocardial injury -likely due to heart failure exacerbation.
Cirrhotic appearing liver on CT
chronic hepatomegaly from MDS
-Ultrasound with evidence of cirrhotic morphology with small volume ascites, no evidence of acute cholecystitis. GI recommends outpatient follow-up. Outpatient FibroScan. Bilirubin improved. GI service signed off.
RLE Cellulitis -improving. No evidence of abscess on CT scan. Leukocytosis resolved. Podiatry consulted. Continue antibiotics.
CKD 4 -renal function appears to be at baseline. Admission creatinine 1.7, 1.8 today. Monitor closely on diuretics.
Pancreatic head/neck cystic focus
� Follow-up MRI abdomen outpatient
Severe TR/Pulmonary Hypertension
likely 2/2 to CHF
Hyponatremia -sodium improved.
Asymptomatic Bacteruria- patient denies urinary symptoms
Paroxysmal Atrial Fibrillation
-patient has declined oral AC therapy
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
MDS, chronic Anemia. Component of acute anemia noted with hemoglobin 6.6 today. No evidence of bleeding clinically. No evidence of hemolysis. Patient agreeable to 1 unit blood transfusion today. Has had transfusions in the past. Continue
Epogen.
-receives Retacrit 60,000 unit MOTH
-Elevated Ferritin -likely acute phase reactant.
Constipation - discontinue loperamide. Bowel regimen ordered. No bowel movements recorded in the hospital.
DVT PPx hep subQ
DNR
Dispo -anticipate discharge to SNF when medically stable.
Anticipated Discharge: 24 - 48 hours
Subjective/Interval History
-
Date of Service: February 11, 2024
Patient seen and examined. Complaining of constipation.
Objective Data
-
Labs:
Laboratory Results
02/11/24
07:46
WBC 9.2
Hgb 6.6 L*
Hct 20.4 L*
Plt Count 227
Sodium 138
Potassium 4.1
Chloride 104
Carbon Dioxide 22
BUN 89 H
Creatinine 1.8 H
Glucose 155 H
Calcium 10.0
Total Bilirubin 1.0
AST 30
ALT < 10
Alkaline Phosphatase 51
Vital Signs:
Vital Signs
Temp Pulse Resp BP Pulse Ox
97.6 F 68 24 129/57 99
02/11/24 07:50 02/11/24 08:50 02/11/24 07:50 02/11/24 08:50 02/11/24 08:00
I&O
02/10/24 02/11/24 02/12/24
06:59 06:59 06:59
Intake Total 900 / 900 1040 / 1040
Balance 900 / 900 1040 / 1040
Review of Systems
-
History Source: Patient
All other systems: Reviewed and negative
[2024-02-11] MEDS: DULCOLAX 10 MG PO (10:51)
[2024-02-11] MEDS: MIRALAX 17 GRAMS PO (10:51)
[2024-02-11 13:42] VITALS: BP 125/48
--- NOTE | 2024-02-11 13:49 | PN.CDI ---
CDI
- -
CDI:
Physician Documentation Request
Admit Date: 02/07/24 20:36
Dear Doctor Eunice,
Patient admitted with acute on chronic diastolic CHF.
02/07 Nursing skin assessment, 'Stage 2 medial back pressure injury, POA.'
Physician documentation of the type and location of wounds is required for compliant documentation. Based on the above clinical findings and your assessment, please provide the following in your progress note:
Type (etiology) of ulcer/wound:
- Pressure (decubitus) ulcer
- Other
- Unable to determine
For a pressure ulcer, please also include the stage* of the ulcer:
- Stage 1 - Skin intact, non-blanchable redness
- Stage 2 - Partial thickness loss of dermis, includes intact or open blister
- Stage 3 - Full thickness tissue not including bone, tendon or muscle
- Stage 4 - Full thickness tissue loss, including exposed bone, tendon or muscle
- Unstageable - Full thickness loss in which the base of the ulcer is covered by slough (yellow, chauhan, dickens, green or brown) and/or eschar (chauhan, brown or black) in the wound bed.
- Unable to determine
Use of terms such as suspected, likely, concern for, or probable (associated with a specific diagnosis that is being evaluated, monitored, or treated as if it exists) are acceptable and can be coded in the inpatient setting, when documented at the
time of discharge.
Thank you,
Radha MARY,RN,CCDS
CDI Specialist
Available via tiger text
Please use your independent medical judgment in providing your response.
*Source: National Pressure Ulcer Advisory Panel (NPUAP)
[2024-02-11 13:57] VITALS: BP 130/45
--- NOTE | 2024-02-11 14:05 | PN.CDI ---
CDI
- -
CDI:
Physician Documentation Request
Admit Date: 02/07/24 20:36
Dear Doctor Eunice,
Patient admitted with acute on chronic diastolic CHF.
Please review the following and provide your response in the progress notes.
Clinical Indicators:
Height: 5' 6'
Weight: 82 lb 2 oz
BMI: 13.3
Please provide an associated diagnosis related to the abnormal BMI, such as:
Underweight
Cachectic
Anorexia
BMI is not significant
Other
BMI < or = to 19
Underweight
Weight Loss
Cachectic
Anorexia
Use of terms such as suspected, likely, concern for, or probable (associated with a specific diagnosis that is being evaluated, monitored, or treated as if it exists) are acceptable and can be coded in the inpatient setting, when documented at the
time of discharge.
Thank you,
Radha MARY,RN,CCDS
CDI Specialist
Available via tiger text
Please use your independent medical judgment in providing your response.
[2024-02-11 15:15] VITALS: BP 119/47
--- NOTE | 2024-02-11 16:08 | WOUNDNOTE ---
[facility] RN note: Patient admitted with heart failure, cellulitis. Plan is SNF when discharged.
See H&P for complete history.
PMH: pulmonary HTN, CHF, a fib, CKD3b, MDS, chronic anemia.
Wound Location and type/assessment: Patient admitted with: stage 2 back pressure injury. L heel blanchable red. R dorsal foot redness and edema. +Pedal pulses heard via portable Doppler. CT Scan RLE was negative for abscess. R foot Xray negative
for OM. Stage 1 sacral pressure injury.
Appetite: Fair. Patient extremely thin.
Pressure redistribution devices in place: [employer] Accumax. STACIE Bynum to coordinate switching bed to a [employer] air bed. vineyard supervisor to bring up a [employer] air bed.
Plan: Silicone border foam changed on sacrum. Silicone foam maintained on back. Patient turned to R semi side lying position with help from VINICIO Timmons. Heels off bed with pillow.
Confirmed orders with Dr. Vargas and updated STACIE Bynum.
Care plan to be updated and will follow as needed.
Note to case management of equipment requested for discharge: Air mattress recommended.
Recommend follow up at wound care center upon discharge.
[2024-02-11 16:59] VITALS: BP 141/50
--- NOTE | 2024-02-11 17:47 | PTCARENOTE ---
pt received 1 unit of blood. pt tolerated the infusion. plan of care ongoing.
--- NOTE | 2024-02-11 17:47 | CM ---
CM continues to follow for discharge planning. PT recommends SNF. CM was unable to discuss with Hemalatha, as she had a very low HGB and extremely tired.
CM to follow up to discuss SNF transfer with Hemalatha and refer to facilities of choice at that time.
[2024-02-11] MEDS: NON-FORMULARY ITEM 1 UNIT PO ×3 (18:07)
[2024-02-11 19:40] LABS: Ceruloplasmin 23 mg/dL (16-45)
[2024-02-11 20:35] LABS: Hepatitis B Core Ab, Total Negative (Negative)
[2024-02-11 20:37] LABS: Hepatitis A Antibody, Total Negative (Negative)
[2024-02-11] MEDS: LIDOCAINE 4% PATCH TOPICAL (20:57)
[2024-02-11 23:29] VITALS: BP 136/49
[2024-02-12] MEDS: ANCEF 5 IV ×2 (05:07→17:37)
[2024-02-12 05:09] VITALS: BMI 13.9
[2024-02-12 08:05] VITALS: BP 142/50
[2024-02-12 08:10] LABS: Hematocrit 24.5 % (37.0-47.0); Hemoglobin 8.5 g/dL (12.0-16.0); Mean Corp Hgb Conc. 34.7 g/dL (33.0-37.0); Mean Corpuscular Hgb 36.3 pg (27.0-31.0); Mean Corpuscular Volume 104.7 fL (81.0-99.0); Mean Platelet Volume 12.8 fL (7.4-10.4); Platelet Count 198 10^3/uL (130-400); Red Blood Cell Count 2.34 10^6/uL (4.20-5.40); White Blood Cell Count 11.7 10^3/uL (4.8-10.8)
[2024-02-12 08:40] LABS: ALT (SGPT) 10 U/L (0-35); AST (SGOT) 36 U/L (14-36); Albumin 3.1 g/dl (3.5-5.0); Alkaline Phosphatase 52 U/L (38-126); Blood Urea Nitrogen 90 mg/dl (7-17); Calcium 10.3 mg/dl (8.4-10.2); Carbon Dioxide 23 mmol/L (22-30); Chloride 105 mmol/L (98-107); Estimated Creatinine Clearance 16 ml/min; Glucose 163 mg/dl (70-99); Potassium 4.3 mmol/L (3.5-5.1); Sodium 138 mmol/L (135-145); Total Bilirubin 1.4 mg/dl (0.2-1.3); Total Protein 5.9 g/dl (6.3-8.2)
[2024-02-12] MEDS: NON-FORMULARY ITEM 1 UNIT PO ×3 (08:56→08:58)
[2024-02-12] MEDS: LASIX 40 MG PO (09:00)
[2024-02-12] MEDS: CARDIZEM CD 180 MG PO ×2 (09:00→19:26)
[2024-02-12] MEDS: MIRALAX PO (09:01)
[2024-02-12] MEDS: HEPARIN 5000 UNITS SC ×2 (09:01→19:27)
--- NOTE | 2024-02-12 10:12 | W.PN.HOSP.TC ---
Today's Communication/Plan
-
Consult podiatry
Assessment / Plan
Assessment / Plan
Gen-AAOx3, NAD
HEENT-NC, AT, anicteric, clear oral mm
Neck-supple
CV-reg, no M, +S1/S2
Lungs-clear B/L
Abd-soft, NT, ND
Ext-right pedal edema
Musculoskeletal-no cyanosis, clubbing
Skin-warm and dry, right dorsal foot soft tissue swelling with mild erythema and tenderness, overall looking worse compared to yesterday
Neuro-grossly non-focal
Psych-calm, cooperative
Acute on Chronic Heart Failure preserved EF Exacerbation
Pulmonary Hypertension
Lower Extremity Swelling
-patient has been non-compliant in past with diuretics per [facility] notes. Today she states she is willing to take lasix
-per pulm note 04/30 (saw Dr. Ambrocio), workup negative for secondary causes of pulmonary hypertension, chronic anemia may be contributing. Per pulm she is not a candidate for pulmonary vasodilators given mitral disease and chronic anemia
-Continue oral Lasix.
-Cardiology signed off, recommend outpatient follow-up.
-daily weights, strict I/O, fluid restriction
Acute nonischemic myocardial injury -likely due to heart failure exacerbation.
Cirrhotic appearing liver on CT
chronic hepatomegaly from MDS
-Ultrasound with evidence of cirrhotic morphology with small volume ascites, no evidence of acute cholecystitis. GI recommends outpatient follow-up. Outpatient FibroScan. Bilirubin improved. GI service signed off.
RLE Cellulitis of foot - No evidence of abscess or osteomyelitis on CT scan or x-ray. However, looks more dusky today and will get podiatry involved. Leukocytosis and low-grade fever noted. Currently on IV cefazolin.
CKD 4 -renal function appears to be at baseline. Renal function stable, creatinine 1.6.
Pancreatic head/neck cystic focus
� Follow-up MRI abdomen outpatient
Severe TR/Pulmonary Hypertension
likely 2/2 to CHF
Hyponatremia -sodium improved.
Asymptomatic Bacteruria- patient denies urinary symptoms
Paroxysmal Atrial Fibrillation
-patient has declined oral AC therapy
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
MDS, chronic Anemia. Component of acute anemia noted with hemoglobin 6.6 today. No evidence of bleeding clinically. No evidence of hemolysis. Patient agreeable to 1 unit blood transfusion today. Has had transfusions in the past. Continue
Epogen.
-receives Retacrit 60,000 unit MOTH
-Elevated Ferritin -likely acute phase reactant.
Constipation -improving, moving bowels. Continue bowel regimen.
DVT PPx hep subQ
DNR
Dispo -anticipate discharge to SNF when medically stable.
Anticipated Discharge: 24 - 48 hours
Subjective/Interval History
-
Date of Service: February 12, 2024
Patient seen and examined. Complaining of right foot tenderness with palpation.
Objective Data
-
Labs:
Laboratory Results
02/12/24
07:53
WBC 11.7 H
Hgb 8.5 L D
Hct 24.5 L
Plt Count 198
Sodium 138
Potassium 4.3
Chloride 105
Carbon Dioxide 23
BUN 90 H
Creatinine 1.6 H
Glucose 163 H
Calcium 10.3 H
Total Bilirubin 1.4 H
AST 36
ALT 10
Alkaline Phosphatase 52
Vital Signs:
Vital Signs
Temp Pulse Resp BP Pulse Ox
98 F 74 18 142/50 96
02/12/24 08:05 02/12/24 08:05 02/12/24 08:05 02/12/24 08:05 02/12/24 08:05
I&O
02/11/24 02/12/24 02/13/24
06:59 06:59 06:59
Intake Total 1040 / 1040 1270 / 1270
Balance 1040 / 1040 1270 / 1270
Review of Systems
-
History Source: Patient
All other systems: Reviewed and negative
--- NOTE | 2024-02-12 12:31 | CM ---
Addendum entered by Concha Cameron 02/12/24 15:34:
Plan for PO abx on dc
[facility] can offer bed
Original Note:
CM reviewed chart and met with pt bedside
SNF recommendations and PAC provided
Pt in agreement with plan
Referrals to [facility], [facility], and [facility] per request via [facility]
Per [facility], pt will require air mattress
[facility] is 1st choice
Discharge Disposition- SNF with air mattress
[2024-02-12] MEDS: DUONEB 3 ML INH (13:01)
[2024-02-12 15:48] VITALS: BP 133/47
--- NOTE | 2024-02-12 16:26 | W.PN.SURGUPD ---
Surgical Update
Surgical Update
Patient seen and evaluated at bedside
Plan for right foot I&D on 02/12
Please keep NPO at midnight
Please order DOS labs
Alex Serrato DPM
[2024-02-12] MEDS: LIDOCAINE 4% PATCH TOPICAL (19:20)
--- NOTE | 2024-02-12 21:59 | CON.SURG ---
Surgical Consultation
-
Chief Complaint
RLE wound
History of Present Illness
Ms. Hemalatha Sarmiento is a 83 yo woman with hx MDS follwed at [place], chronic anemia, CKD, paroxysmal atrial fibrillation, HFpEF, severe pulmonary HTN, primary HTN presents to the ER with increased LE swelling and outpatient labs showing elevated
bilirubin. She was sent in from Oncology office.
Patient states that her legs have been swollen for a while but usually controlled by elevating them at night and wearing compression stockings. Over the last few days they both have become increasingly swollen and right one is red with weeping. No
fevers or chills. She denies chest pain or shortness of breath. She denies abdominal pain and denies dysuria. No headache.
Podiatry has been consulted for right foot fluid collection, with concern for infection.
Medical History
Past Medical History
Past Medical History: Reports Other (MDS follwed at [place], chronic anemia, CKD, paroxysmal atrial fibrillation, HFpEF, severe pulmonary HTN, primary HTN)
Past Surgical History: Reports None
Social History
Tobacco: Non-smoker
Alcohol: None
Family History
Family History: Not pertinent
Allergies / Home Medications
Allergies reflects when Allergies were last updated in [employer].
Home Medications with original date entered in [employer]
Allergy/Medication List:
Allergies
Allergy/AdvReac Type Severity Reaction Status Date / Time
Sulfa (Sulfonamide Allergy Unknown Verified 01/04/22 00:16
Antibiotics)
venom-honey bee Allergy Swelling Verified 01/04/22 00:16
Home Medications
cholecalciferol (vitamin D3) 50 mcg (2,000 unit) tablet 2,000 units PO DAILY Supplement 12/01/21
calcium carbonate (Calcium 500) 1,000 mg PO DAILY 02/07/24
diltiazem HCl 180 mg capsule,extended release 24 hr 180 mg PO BID 02/07/24
glucosamine EHg-S3-Uoiniyfkk rosi 1,500 mg-400 unit-100 mg tablet (Osteo Bi-Flex (5-Loxin)) 1 tab PO BID 02/07/24
loperamide 2 mg capsule 2 mg PO QPM 02/07/24
therapeutic multivitamin 1 tab PO DAILY 02/07/24
Review of Systems
-
History Source: Patient
A 12 point ROS was completed and negative except as noted: Yes
Physical Exam
Vital Signs
Vital Signs
Temp Pulse Resp BP Pulse Ox
98.1 F 84 19 130/56 92
02/07/24 13:04 02/07/24 18:00 02/07/24 18:00 02/07/24 14:35 02/07/24 18:00
Physical Exam
General: Appears Chronically Ill and Other (frail appearing)
HEENT: NormoCephalic and Anicteric
Respiratory: Rales
Cardiac: S1/S2, Murmur and JVD
GI: Soft and Non Tender
Musculoskeletal: Right foot DP/PT pulses 2/4. Edema and erythema noted to dorsolateral right foot with palpable fluctuance. Erythema and edema extends proximally to distal leg. No notable wounds. No palpable crepitus.
Skin: Warm and Dry
Neuro: AO x 3
Psych: Calm
Laboratory Results
-
02/07/24 14:43
02/07/24 14:43
Laboratory Results
Total Bilirubin 3.6 mg/dl (0.2-1.3) H 02/07/24 14:43
AST 51 U/L (14-36) H 02/07/24 14:43
ALT 38 U/L (0-35) H 02/07/24 14:43
Alkaline Phosphatase 55 U/L (38-126) 02/07/24 14:43
Data Reviewed
-
Diagnostic Radiology: Report Reviewed by me
Lab Data: Labs Reviewed by me
Impression/Plan
Patient with RLE fluctuance concerning for fluid collection and infection. CT scan findings: Mild generalized soft tissue edema. No drainable fluid collection. There is prominent focal swelling/skin thickening along the dorsal lateral
forefoot/midfoot measuring approximately 3.8 x 1.5 x 4.1 cm which is superficial to the extensor tendons. While CT scan does not definitively show drainable fluid collection, her foot has become increasing swollen and painful for fluctuance.
-Plan for right foot I&D on 02/12
-Please keep patient NPO after midnight
-Please order DOS labs
-Cultures to be obtained
[2024-02-12 23:27] VITALS: BP 133/50
[2024-02-13] VITALS (10 sets, daily range): BP systolic 116–146; BP diastolic 43–56; BMI 13.9
[2024-02-13] MEDS: ANCEF 5 IV ×2 (05:10→18:17)
[2024-02-13 07:49] LABS: Hematocrit 24.3 % (37.0-47.0); Hemoglobin 8.3 g/dL (12.0-16.0); Mean Corp Hgb Conc. 34.2 g/dL (33.0-37.0); Mean Corpuscular Hgb 35.6 pg (27.0-31.0); Mean Corpuscular Volume 104.3 fL (81.0-99.0); Platelet Count 203 10^3/uL (130-400); Red Blood Cell Count 2.33 10^6/uL (4.20-5.40); Red Cell Dist. Width 31.8 % (11.5-14.5); White Blood Cell Count 11.4 10^3/uL (4.8-10.8)
[2024-02-13] MEDS: CARDIZEM CD 180 MG PO ×2 (08:26→19:50)
[2024-02-13] MEDS: HEPARIN 5000 UNITS SC ×2 (08:26→19:50)
[2024-02-13] MEDS: MIRALAX PO (08:27)
[2024-02-13] MEDS: LASIX 40 MG PO (08:27)
[2024-02-13] MEDS: NON-FORMULARY ITEM 1 UNIT PO ×2 (08:28)
[2024-02-13] MEDS: NON-FORMULARY ITEM PO (08:29)
--- NOTE | 2024-02-13 09:03 | W.PN.HOSP.TC ---
Today's Communication/Plan
-
Await OR today
Assessment / Plan
Assessment / Plan
Gen-AAOx3, NAD
HEENT-NC, AT, anicteric, clear oral mm
Neck-supple
CV-reg, no M, +S1/S2
Lungs-clear B/L
Abd-soft, NT, ND
Ext-right pedal edema
Musculoskeletal-no cyanosis, clubbing
Skin-warm and dry, right dorsal foot soft tissue swelling with mild erythema and tenderness
Neuro-grossly non-focal
Psych-calm, cooperative
Acute on Chronic Heart Failure preserved EF Exacerbation
Pulmonary Hypertension
Lower Extremity Swelling
-patient has been non-compliant in past with diuretics per [facility] notes. Today she states she is willing to take lasix
-per pulm note 04/30 (saw Dr. Ambrocio), workup negative for secondary causes of pulmonary hypertension, chronic anemia may be contributing. Per pulm she is not a candidate for pulmonary vasodilators given mitral disease and chronic anemia
-Continue oral Lasix.
-Cardiology signed off, recommend outpatient follow-up.
-daily weights, strict I/O, fluid restriction
Acute nonischemic myocardial injury -likely due to heart failure exacerbation.
Cirrhotic appearing liver on CT
chronic hepatomegaly from MDS
-Ultrasound with evidence of cirrhotic morphology with small volume ascites, no evidence of acute cholecystitis. GI recommends outpatient follow-up. Outpatient FibroScan. Bilirubin improved. GI service signed off.
RLE Cellulitis of foot - No evidence of abscess or osteomyelitis on CT scan or x-ray. Await incision and drainage today by podiatry.
CKD 4 -renal function appears to be at baseline. Labs pending for today.
Pancreatic head/neck cystic focus
� Follow-up MRI abdomen outpatient
Severe TR/Pulmonary Hypertension
likely 2/2 to CHF
Hyponatremia -sodium improved.
Asymptomatic Bacteruria- patient denies urinary symptoms
Paroxysmal Atrial Fibrillation
-patient has declined oral AC therapy
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
MDS, chronic Anemia. Component of acute anemia noted. Hemoglobin improved after transfusion and now stable. 8.3 today. Continue Epogen.
-receives Retacrit 60,000 unit MOTH
-Elevated Ferritin -likely acute phase reactant.
Constipation -improving, moving bowels. Continue bowel regimen.
DVT PPx hep subQ
DNR
Dispo - anticipate discharge to SNF when medically stable.
Anticipated Discharge: > 48 hours
Subjective/Interval History
-
Date of Service: February 13, 2024
Patient seen and examined. No new complaints.
Objective Data
-
Labs:
Laboratory Results
02/13/24 02/13/24
06:56 08:23
WBC 11.4 H
Hgb 8.3 L
Hct 24.3 L
Plt Count 203
Sodium Pending
Potassium Pending
Chloride Pending
Carbon Dioxide Pending
BUN Pending
Creatinine Pending
Glucose Pending
Calcium Pending
Total Bilirubin Pending
AST Pending
ALT Pending
Alkaline Phosphatase Pending
Vital Signs:
Vital Signs
Temp Pulse Resp BP Pulse Ox
98.2 F 72 18 146/56 95
02/13/24 07:47 02/13/24 07:47 02/13/24 07:47 02/13/24 07:47 02/13/24 07:47
I&O
02/12/24 02/13/24 02/14/24
06:59 06:59 06:59
Intake Total 1270 / 1270 1320 / 1320
Balance 1270 / 1270 1320 / 1320
Review of Systems
-
History Source: Patient
All other systems: Reviewed and negative
[2024-02-13 09:27] LABS: ALT (SGPT) 10 U/L (0-35); AST (SGOT) 35 U/L (14-36); Albumin 3.2 g/dl (3.5-5.0); Alkaline Phosphatase 59 U/L (38-126); Blood Urea Nitrogen 81 mg/dl (7-17); Calcium 10.2 mg/dl (8.4-10.2); Carbon Dioxide 24 mmol/L (22-30); Chloride 103 mmol/L (98-107); Estimated Creatinine Clearance 18 ml/min; Glucose 168 mg/dl (70-99); Potassium 4.4 mmol/L (3.5-5.1); Sodium 137 mmol/L (135-145); Total Bilirubin 1.2 mg/dl (0.2-1.3); Total Protein 6.2 g/dl (6.3-8.2); eGFR 34.36
--- NOTE | 2024-02-13 18:11 | CM ---
Pt to OR today foot I&D. Anticipate transfer to [facility] when medically cleared. CM to continue to follow.
--- NOTE | 2024-02-13 18:19 | W.PN.UPDATE ---
Update Note
Progress Note Update
Right Foot incision and drainage
-Wound packed, cultures taken
-Consult wound care for packing changes daily while in house
-WBAT RLE in surgical shoe
-Antibiotics per ID and cultures, anticipate 2 weeks ABx post operatively
-Follow up 2 weeks
-okay to D/C from podiatry/ortho standpoint
--- NOTE | 2024-02-13 18:30 | PTCARENOTE ---
Received pt from PACU report from Ni QUINONES. Pt drowsy arousable to verbal stimuli, Dressing to right foot CDI, Pt able to wiggle toes, good sensation, +Popliteal pulse unable to feel pedal pulse r/t dressing. Pt has mild pain but tolerable at this
time. Pt VSS 99% on 2L. Pt reoriented to room, awake and eating dinner, will continue to monitor.
[2024-02-13] MEDS: UNASYN IV (19:51)
[2024-02-13] MEDS: LIDOCAINE 4% PATCH TOPICAL (23:18)
[2024-02-14 02:32] VITALS: BP 140/50
[2024-02-14 05:36] VITALS: BMI 13.5
[2024-02-14 07:38] LABS: Hematocrit 25.2 % (37.0-47.0); Hemoglobin 8.4 g/dL (12.0-16.0); Mean Corp Hgb Conc. 33.3 g/dL (33.0-37.0); Mean Corpuscular Hgb 35.6 pg (27.0-31.0); Mean Corpuscular Volume 106.8 fL (81.0-99.0); Platelet Count 232 10^3/uL (130-400); Red Blood Cell Count 2.36 10^6/uL (4.20-5.40); Red Cell Dist. Width 31.5 % (11.5-14.5); White Blood Cell Count 9.8 10^3/uL (4.8-10.8)
[2024-02-14 07:40] VITALS: BP 142/55
--- NOTE | 2024-02-14 07:57 | W.PN.ORTHO ---
Today's Communication / Plan
-
Wound packed�consult wound care for packing changes daily
Weight-bear as tolerated right lower extremity in surgical shoe
Antibiotics per ID�follow cultures
Follow-up in 2 weeks with orthopedics
Okay to DC from orthopedic standpoint
Assessment
.
Distal Motor Intact: Yes
Dressing:
Clean, dry and intact.
Plan
.
Surgery / Date: R foot I & D 02/12 [facility]
DVT Prophylaxis: Aspirin
Activity:
Out of bed.
PT/OT
Discharge Plan: Home
Subjective
.
.:
Patient resting comfortably.
Vital Signs and Labs
.
Vital Signs and Labs:
Lab Results
02/14/24 06:42
Temp Pulse Resp BP Pulse Ox
98.5 F 73 18 140/50 99
02/14/24 02:32 02/14/24 02:32 02/14/24 02:32 02/14/24 02:32 02/14/24 02:32
[2024-02-14] MEDS: UNASYN IV ×2 (08:08→19:58)
[2024-02-14] MEDS: MIRALAX 17 GRAMS PO (08:08)
[2024-02-14] MEDS: HEPARIN 5000 UNITS SC ×2 (08:09→19:57)
[2024-02-14] MEDS: LASIX 40 MG PO (08:09)
[2024-02-14 08:11] LABS: ALT (SGPT) < 10 U/L (0-35); AST (SGOT) 37 U/L (14-36); Albumin 3.3 g/dl (3.5-5.0); Alkaline Phosphatase 64 U/L (38-126); Blood Urea Nitrogen 82 mg/dl (7-17); Calcium 10.3 mg/dl (8.4-10.2); Carbon Dioxide 24 mmol/L (22-30); Chloride 103 mmol/L (98-107); Estimated Creatinine Clearance 16 ml/min; Glucose 145 mg/dl (70-99); Potassium 4.5 mmol/L (3.5-5.1); Sodium 138 mmol/L (135-145); Total Bilirubin 1.4 mg/dl (0.2-1.3); Total Protein 6.3 g/dl (6.3-8.2)
[2024-02-14] MEDS: NON-FORMULARY ITEM 1 UNIT PO ×2 (08:17)
[2024-02-14] MEDS: NON-FORMULARY ITEM PO ×2 (08:18→09:53)
[2024-02-14] MEDS: CARDIZEM CD 180 MG PO ×2 (08:25→19:49)
--- NOTE | 2024-02-14 09:00 | W.PN.HOSP.TC ---
Addendum entered and electronically signed by Avni Dawson DO 02/14/24 13:35:
Sepsis present on admission.
Original Note:
Today's Communication/Plan
-
Continue antibiotics
Await cultures
PT/OT
ID consult
Assessment / Plan
Assessment / Plan
Gen-AAOx3, NAD
HEENT-NC, AT, anicteric, clear oral mm
Neck-supple
CV-reg, no M, +S1/S2
Lungs-clear B/L
Abd-soft, NT, ND
Ext-right pedal edema, right foot Mateo wrapped
Musculoskeletal-no cyanosis, clubbing
Skin-warm and dry
Neuro-grossly non-focal
Psych-calm, cooperative
Sepsis due to right foot abscess/cellulitis -abscess drained in the operating room 02/12. Wound cultures pending. Currently on IV Unasyn. ID consulted. MRSA screen negative. Orthopedics recommends follow-up in the office in 2 weeks.
Weightbearing as tolerated on right lower extremity in surgical shoe.
Acute on Chronic Heart Failure preserved EF Exacerbation
Pulmonary Hypertension
Lower Extremity Swelling
-patient has been non-compliant in past with diuretics per [facility] notes. Today she states she is willing to take lasix
-per pulm note 04/30 (saw Dr. Ambrocio), workup negative for secondary causes of pulmonary hypertension, chronic anemia may be contributing. Per pulm she is not a candidate for pulmonary vasodilators given mitral disease and chronic anemia
-Continue oral Lasix.
-Cardiology signed off, recommend outpatient follow-up.
-daily weights, strict I/O, fluid restriction
Acute nonischemic myocardial injury -likely due to heart failure exacerbation.
Cirrhotic appearing liver on CT
chronic hepatomegaly from MDS
-Ultrasound with evidence of cirrhotic morphology with small volume ascites, no evidence of acute cholecystitis. GI recommends outpatient follow-up. Outpatient FibroScan. Bilirubin improved. GI service signed off.
CKD 4 -renal function appears to be at baseline.
Pancreatic head/neck cystic focus
� Follow-up MRI abdomen outpatient
Severe TR/Pulmonary Hypertension
likely 2/2 to CHF
Hyponatremia -sodium improved.
Asymptomatic Bacteruria- patient denies urinary symptoms
Paroxysmal Atrial Fibrillation
-patient has declined oral AC therapy
-[employer] Diltiazem
MDS, chronic Anemia. Component of acute anemia noted. Hemoglobin improved after transfusion and now stable. 8.3 today. Continue Epogen.
-receives Retacrit 60,000 unit MOTH
-Elevated Ferritin -likely acute phase reactant.
Constipation -improving, moving bowels. Continue bowel regimen.
DVT PPx hep subQ
DNR
Dispo - anticipate discharge to SNF when medically stable.
Anticipated Discharge: 24 - 48 hours
Subjective/Interval History
-
Date of Service: February 14, 2024
Patient seen and examined. States her foot is feeling better.
Objective Data
-
Labs:
Laboratory Results
02/14/24
06:42
WBC 9.8
Hgb 8.4 L
Hct 25.2 L
Plt Count 232
Sodium 138
Potassium 4.5
Chloride 103
Carbon Dioxide 24
BUN 82 H
Creatinine 1.6 H
Glucose 145 H
Calcium 10.3 H
Total Bilirubin 1.4 H
AST 37 H
ALT < 10
Alkaline Phosphatase 64
Vital Signs:
Vital Signs
Temp Pulse Resp BP Pulse Ox
98 F 65 16 140/53 95
02/14/24 07:40 02/14/24 08:09 02/14/24 07:40 02/14/24 08:09 02/14/24 07:40
I&O
02/13/24 02/14/24 02/15/24
06:59 06:59 06:59
Intake Total 1320 / 1320 755 / 755
Balance 1320 / 1320 755 / 755
Review of Systems
-
History Source: Patient
All other systems: Reviewed and negative
--- NOTE | 2024-02-14 12:55 | PN.CDI ---
CDI
- -
CDI:
Physician Documentation Request
Admit Date: 02/07/24 20:36
Dear Doctor, Eunice,
Patient admitted with RLE cellulitis.
02/13 PN, 'Sepsis due to right foot abscess/cellulitis....'
On admission, WBC 12.9 and HR 94.
Please clarify the following:
Sepsis was present on admission
Sepsis was not present on admission but evolved during hospitalization
Other
Use of terms such as suspected, likely, concern for, or probable (associated with a specific diagnosis that is being evaluated, monitored, or treated as if it exists) are acceptable and can be coded in the inpatient setting, when documented at the
time of discharge.
Thank you,
Radha MARY,RN,CCDS
CDI Specialist
Available via [place] text
Please use your independent medical judgment in providing your response.
--- NOTE | 2024-02-14 13:20 | WOUNDNOTE ---
R FOOT (wound undermines up to 2.5cm all around)
--- NOTE | 2024-02-14 13:30 | WOUNDNOTE ---
[facility] RN note: Patient's R dorsal foot packing changed as ordered. I+D site sutured with a .4x.3 opening x .4cm, undermines up to 2.5cm all around, +local erythema, moderate ss drainage. Covered packing with gauze pads, ABD pad, secured with Kerlix
and reapplied Mateo to secure dressing. Heels off bed with pillows. Skin on heels intact. Patient is on a Versacare Accumax. Spoke with STACIE Jarrell who plans to apply a Waffle air overlay. Mertens texted Dr. Aguilera to confirm wound care for nursing
ongoing. Await response.
[2024-02-14 14:25] VITALS: BP 125/57; PULSE 72; O2SAT 100
[2024-02-14 14:38] VITALS: BP 125/67; PULSE 70; O2SAT 100
--- NOTE | 2024-02-14 14:43 | WOUNDNOTE ---
Clarified R foot daily wound care with packing for nursing with Dr. Aguilera. Care plan and discharge instructions updated. Will follow as needed.
--- NOTE | 2024-02-14 15:12 | CON.ID ---
Consultation
-
Date/Time Consultation Requested: 02/13/2024 1820
Date/Time Consultation Performed: 02/14/2024 1445
Requesting Provider: Dr. Dawson
Performing Provider: Dr. Huber
Reason for Consultation: Right foot cellulitis
Chief Complaint / Past History
History of Present Illness
Hemalatha Sarmiento is an 83-year-old female being evaluated at the request of Dr. Dawson in regards to right foot cellulitis. History is obtained from chart review, along with patient interview, although it was found that the patient could provide very
little in the way of history for me secondary to somnolence.
The patient initially presented to the emergency room here at [facility] on 02/07/2024 with multiple complaints, including lower extremity swelling, and elevated bilirubin. She has a history of MDS and is followed by Oncology. She had been
seen by her Oncologist for routine checkup earlier in the day and recent blood work revealed a elevated bilirubin. The patient was sent in for potential CT scanning and further workup. In the ER, her right leg was found to be erythematous,
edematous and tender to touch. There is a reported history of a small cut to the anterior manuel area. No history of reported drainage. The patient was started on empiric antibiotics (cefazolin), and she was followed over the next several days.
Ultimately, orthopedics was consulted ongoing swelling, and the patient was taken to the OR for I&D. Intraoperative findings suggested an infected hematoma, and cultures are currently pending. The patient is currently on Unasyn, and Infectious
Diseases is asked to comment upon further antimicrobial therapy.
At this time she admits to ongoing discomfort and swelling of the right lower extremity.
Past History
Additional Past Medical History:
MDS
A-fib
CHF
HTN
CKD
Valvular disease
Allergy History:
Sulfa (Sulfonamide Antibiotics) Allergy (Verified 01/04/22 00:16)
Unknown
venom-honey bee Allergy (Verified 01/04/22 00:16)
Swelling
Medications Reviewed: Yes
Current Antibiotics:
Unasyn
Social History
Tobacco: Non-Smoker
Alcohol: None
Drug: None
Personal: Single
Living: [facility]
Employment: Not Employed
Family History
Family History: Unable to Obtain
Review of Systems
Vital Signs
Temp Pulse Resp BP Pulse Ox
98 F 65 16 140/53 95
02/14/24 07:40 02/14/24 08:09 02/14/24 07:40 02/14/24 08:09 02/14/24 10:24
Physical Exam
Physical Exam
Constitutional: No Acute Distress, Comfortable, Chronically Ill and Cachetic
Head: Normocephalic
Eyes: Pupils Equal, Pupils Round, No Conjunctival Hemorrhage and Sclera Anicteric
Oral: No Thrush and No Ulcers
Cardiovascular: Irregular Rate and S1/S2; Negative S3/S4
Pulmonary: Clear; Negative Wheezes, Rales or Rhonchi
Gastrointestinal: Soft, Non Tender, Non Distended and Normal Bowel Sounds
Extremities: Edema (2+RLE) and Erythema (RLE to level of mid-calf); Negative Cyanosis
Skin: Warm and Dry; Negative Rash or Jaundice
Neurological: Other (Somnolent but arousable.)
.
Lab / Diagnostic Study Results
02/14/24 06:42
02/14/24 06:42
Abs Immat Gran (auto) 0.1 10^3/uL (0-0.05) H 02/07/24 14:43
Absolute Neuts (auto) 9.5 10^3/uL (1.4-6.5) H 02/07/24 14:43
Absolute Lymphs (auto) 1.9 10^3/uL (1.2-3.4) 02/07/24 14:43
Absolute Monos (auto) 1.2 10^3/uL (0.1-0.6) H 02/07/24 14:43
Absolute Basos (auto) 0.1 10^3/uL (0-0.2) 02/07/24 14:43
Immature Gran % 0.9 % (0-0.5) H 02/07/24 14:43
Neutrophils % 73.6 % (42.2-75.2) 02/07/24 14:43
Lymphocytes % 15.2 % (20.5-51.1) L 02/07/24 14:43
Monocytes % 9.3 % (1.7-9.3) 02/07/24 14:43
Eosinophils % 0.8 % (0-6) 02/07/24 14:43
Basophils % 0.4 % (0-2) 02/07/24 14:43
ESR 62 mm/hour (0-20) H 02/11/24 07:46
C-Reactive Protein 24.80 mg/L (0.0-10.00) H 02/11/24 07:46
Ur Squamous Epith Cells 0-2 /LPF (Few) 02/07/24 14:43
Microbiology Results
Micro:
02/13/24 16:45 Wound Culture - Pending (GNR's seen)
Foot - Right Gram Stain - Preliminary
02/13/24 16:45 Anaerobic Culture - Pending
Foot - Right
02/08/24 10:53 MRSA Screen - Final
Nose No Methicillin Resistant Staphylococcus aureus isolated.
02/07/24 14:43 Urine Culture - Final
Urine
Assessment / Plan
RLE infected hematoma
- s/p I&D (02/13/2024)
- cultures with GNR's
Leukocytosis; improved
CKD (Est. CrCl ~ 16)
MDS
A-fib
CHF
HTN
CKD
Valvular disease
Recommendation:
Continue with Unasyn for today.
Currently awaiting further culture data to guide abx selection and potential de-escalation.
Continue with local care to the right foot area.
Agree with ongoing elevation.
[2024-02-14 15:47] VITALS: BP 139/51
--- NOTE | 2024-02-14 16:32 | CM ---
Case discussed with Dr. Dawson; await culture result to determine timing of discharge to [facility].
Call placed to admissions and spoke with Chrystal who advised a bed is available for tomorrow, but unsure if there is a bed available for Sunday.
CM met with Hemalatha at bedside. She is very weak and tired. She spoke about the wound care that she needs to have done, and understands that she is not able to return home in her current condition.
She shared that her roof was leaking while she has been here, however she has a friend taking care of it and contacting the insurance company on her behalf.
CM to continue to follow to coordinate discharge to SNF when medically cleared.
[2024-02-14] MEDS: LIDOCAINE 4% PATCH TOPICAL (22:19)
[2024-02-15 00:27] VITALS: BP 153/56
[2024-02-15 06:00] VITALS: BMI 14.1
[2024-02-15 08:14] VITALS: BP 144/57
[2024-02-15] MEDS: CARDIZEM CD 180 MG PO (08:30)
[2024-02-15] MEDS: MIRALAX 17 GRAMS PO (08:31)
[2024-02-15] MEDS: HEPARIN 5000 UNITS SC (08:31)
[2024-02-15] MEDS: LASIX 40 MG PO (08:31)
[2024-02-15] MEDS: NON-FORMULARY ITEM 2 UNIT PO (08:32)
[2024-02-15] MEDS: NON-FORMULARY ITEM 1 UNIT PO ×2 (08:32)
[2024-02-15] MEDS: UNASYN IV (08:33)
[2024-02-15 08:35] LABS: Hematocrit 25.4 % (37.0-47.0); Hemoglobin 8.8 g/dL (12.0-16.0); Mean Corp Hgb Conc. 34.6 g/dL (33.0-37.0); Mean Corpuscular Hgb 36.2 pg (27.0-31.0); Mean Corpuscular Volume 104.5 fL (81.0-99.0); Mean Platelet Volume 13.1 fL (7.4-10.4); Platelet Count 229 10^3/uL (130-400); Red Blood Cell Count 2.43 10^6/uL (4.20-5.40); Red Cell Dist. Width 30.5 % (11.5-14.5); White Blood Cell Count 7.3 10^3/uL (4.8-10.8)
[2024-02-15 09:06] LABS: ALT (SGPT) 11 U/L (0-35); AST (SGOT) 42 U/L (14-36); Albumin 3.5 g/dl (3.5-5.0); Alkaline Phosphatase 70 U/L (38-126); Blood Urea Nitrogen 80 mg/dl (7-17); Calcium 10.3 mg/dl (8.4-10.2); Carbon Dioxide 27 mmol/L (22-30); Chloride 106 mmol/L (98-107); Estimated Creatinine Clearance 19 ml/min; Glucose 188 mg/dl (70-99); Potassium 4.5 mmol/L (3.5-5.1); Sodium 140 mmol/L (135-145); Total Bilirubin 1.6 mg/dl (0.2-1.3); Total Protein 6.7 g/dl (6.3-8.2); eGFR 37.33
--- NOTE | 2024-02-15 09:51 | W.PN.ID1 ---
Addendum entered and electronically signed by Renetta Lockwood MD 02/15/24 11:17:
OR cx resulted as Citrobacter braakii. Can transition Unasyn to doxycycline 100mg po bid x 14 days.
Original Note:
Date of Service
Date of Service: February 15, 2024
Today's Communication
When OR cx data available, will transition to po abx.
Assessment / Plan
RLE infected hematoma
- s/p I&D (02/13/2024)
- cultures with GNR's
Leukocytosis; improved
CKD (Est. CrCl ~ 16)
MDS
A-fib
CHF
HTN
CKD
Valvular disease
Recommendation:
Continue with Unasyn for now.
When OR cx data available, will transition to po abx.
Continue with local care to the right foot area.
Agree with ongoing elevation.
Chief Complaint
-: Other (Infected hematoma)
Subjective / Review of Systems
No foot pain
Vital Signs / Physical Exam
Vital Signs
Vital Signs
Temp Pulse Resp BP Pulse Ox
97.9 F 77 20 144/57 99
02/15/24 08:14 02/15/24 08:31 02/15/24 08:14 02/15/24 08:31 02/15/24 08:20
Physical Exam
Constitutional: No Acute Distress and Cachetic
Pulmonary: Clear
Gastrointestinal: Soft, Non Tender, Non Distended and Normal Bowel Sounds
Wound: Other (Reviewed 02/13 wound photo: Dorsum right foot with sutures in place, mild surrounding erythema)
Objective Data
Lab Data
Lab Results
02/15/24 06:50
02/15/24 06:50
ESR 62 mm/hour (0-20) H 02/11/24 07:46
Estimated Creat Clear 19 ml/min 02/15/24 06:50
Total Bilirubin 1.6 mg/dl (0.2-1.3) H 02/15/24 06:50
AST 42 U/L (14-36) H 02/15/24 06:50
ALT 11 U/L (0-35) 02/15/24 06:50
Alkaline Phosphatase 70 U/L (38-126) 02/15/24 06:50
C-Reactive Protein 24.80 mg/L (0.0-10.00) H 02/11/24 07:46
Most recent labs reviewed.
Micro Results:
02/13/24 16:45 Wound Culture - Preliminary
Foot - Right Gram negative bacilli
Gram Stain - Preliminary
02/13/24 16:45 Anaerobic Culture - Preliminary
Foot - Right Culture pending. Anaerobic cultures are examined after 3
days incubation. Additional information to follow.
02/08/24 10:53 MRSA Screen - Final
Nose No Methicillin Resistant Staphylococcus aureus isolated.
02/07/24 14:43 Urine Culture - Final
Urine
--- NOTE | 2024-02-15 11:24 | W.PN.HOSP.TC ---
Addendum entered and electronically signed by Avni Dawson DO 02/15/24 15:32:
Patient admitted with: Stage 1 sacral pressure injury
Original Note:
Today's Communication/Plan
-
Discharge
Assessment / Plan
Assessment / Plan
Gen-AAOx3, NAD
HEENT-NC, AT, anicteric, clear oral mm
Neck-supple
CV-reg, no M, +S1/S2
Lungs-clear B/L
Abd-soft, NT, ND
Ext-right pedal edema, right foot Mateo wrapped
Musculoskeletal-no cyanosis, clubbing
Skin-warm and dry
Neuro-grossly non-focal
Psych-calm, cooperative
Sepsis due to right foot abscess/cellulitis -abscess drained in the operating room 02/12. Wound cultures from the OR show Citrobacter. Antibiotics changed to doxycycline orally for 2 weeks. Discussed with ID service. MRSA screen negative.
Orthopedics recommends follow-up in the office in 2 weeks. Weightbearing as tolerated on right lower extremity in surgical shoe.
Acute on Chronic Heart Failure preserved EF Exacerbation
Pulmonary Hypertension
Lower Extremity Swelling
-patient has been non-compliant in past with diuretics per [facility] notes. Today she states she is willing to take lasix
-per pulm note 04/30 (saw Dr. Ambrocio), workup negative for secondary causes of pulmonary hypertension, chronic anemia may be contributing. Per pulm she is not a candidate for pulmonary vasodilators given mitral disease and chronic anemia
-Continue oral Lasix.
-Cardiology signed off, recommend outpatient follow-up.
-daily weights, strict I/O, fluid restriction
Acute nonischemic myocardial injury -likely due to heart failure exacerbation.
Cirrhotic appearing liver on CT
chronic hepatomegaly from MDS
-Ultrasound with evidence of cirrhotic morphology with small volume ascites, no evidence of acute cholecystitis. GI recommends outpatient follow-up. Outpatient FibroScan. Bilirubin improved. GI service signed off.
CKD 4 -renal function appears to be at baseline.
Pancreatic head/neck cystic focus
� Follow-up MRI abdomen outpatient
Severe TR/Pulmonary Hypertension
likely 2/2 to CHF
Hyponatremia -sodium improved.
Asymptomatic Bacteruria- patient denies urinary symptoms
Paroxysmal Atrial Fibrillation
-patient has declined oral AC therapy
-[employer] Diltiazem
MDS, chronic Anemia. Component of acute anemia noted. Hemoglobin improved after transfusion and now stable. 8.8 today. Continue Epogen.
-receives Retacrit 60,000 unit MOTH
-Elevated Ferritin -likely acute phase reactant.
Constipation -improving, moving bowels. Continue bowel regimen.
DVT PPx hep subQ
DNR
Dispo -medically stable for discharge to [place] today. Discussed with case management and RN. Outpatient follow-up with orthopedics, cardiology, PCP, GI.
35-minute spent in discharge process.
Anticipated Discharge: Today
Subjective/Interval History
-
Date of Service: February 15, 2024
Patient seen and examined. Denies foot pain. Complaining of soft stools.
Objective Data
-
Labs:
Laboratory Results
02/15/24
06:50
WBC 7.3
Hgb 8.8 L
Hct 25.4 L
Plt Count 229
Sodium 140
Potassium 4.5
Chloride 106
Carbon Dioxide 27
BUN 80 H
Creatinine 1.4 H
Glucose 188 H
Calcium 10.3 H
Total Bilirubin 1.6 H
AST 42 H
ALT 11
Alkaline Phosphatase 70
Vital Signs:
Vital Signs
Temp Pulse Resp BP Pulse Ox
97.9 F 77 20 144/57 99
02/15/24 08:14 02/15/24 08:31 02/15/24 08:14 02/15/24 08:31 02/15/24 08:20
I&O
02/14/24 02/15/24 02/16/24
06:59 06:59 06:59
Intake Total 755 / 755 540 / 540
Balance 755 / 755 540 / 540
Review of Systems
-
History Source: Patient
All other systems: Reviewed and negative
--- NOTE | 2024-02-15 11:31 | W.DS.TRANS ---
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
-
Discharge Instructions:
Sleep Apnea Risk Low
Discharge Diagnosis/Procedures Sepsis, right foot abscess, acute heart failure
exacerbation, anemia
Diet 2 Gram Sodium
Activity As tolerated,With assistance
Driving Restrictions No driving
Bathing Restrictions None
Blood Work CBC and BMP in 1 week
Instructions: *CBC Heart Failure Instructions
Stand-Alone Forms:
Changes to Home Medications: No
Discharge Medications:
DC Medications w/original date entered in [employer] Holding
diltiazem HCl 180 mg capsule,extended release 24 hr 180 mg PO BID Blood Pressure 02/07/24
glucosamine MNa-F3-Mzpbaotuw rosi 1,500 mg-400 unit-100 mg tablet (Osteo Bi-Flex (5-Loxin)) 1 tab PO BID Supplement 02/07/24
therapeutic multivitamin 1 tab PO DAILY Supplement 02/07/24
epoetin bob-epbx 40,000 unit/mL injection solution (Retacrit) 60,000 unit SC Q2W MDS 02/11/24
acetaminophen 325 mg tablet 650 mg (2 x 325 mg) PO Q6HPRN PRN mild pain/ fever>100.5F #0 tabs 02/14/24
furosemide 40 mg tablet 40 mg PO DAILY #0 tabs 02/14/24
lidocaine 4 % topical patch 1 patch topical HS #0 ea 02/14/24
polyethylene glycol 3350 17 gram oral powder packet (HealthyLax) 17 g PO DAILY #0 ea 02/14/24
doxycycline hyclate 100 mg capsule 100 mg PO Q12 #27 caps 02/15/24
Home Medication Changes
Pending Results: No
[2024-02-15 11:43] VITALS: BMI 14.1
[2024-02-15] MEDS: VIBRAMYCIN 100 MG PO (12:11)
--- NOTE | 2024-02-15 12:13 | CM ---
Hemalatha is ready for discharge today. [facility] has a bed available and she is agreeable to transfer there for rehab. Due to deconditioning an ambulance is being arranged for transport, as she is very fatigued and weak, unable to sit in a wheelchair
during transport.
Plan: Transfer to [facility] today via ambulance transport
Report: [phone]
--- NOTE | 2024-02-15 13:31 | PTCARENOTE ---
Attempted to call report to [facility] # [phone] and ; no answer; messages left at both numbers to return call for report.
[2024-02-15 15:24] VITALS: BP 134/55
--- NOTE | 2024-02-15 15:24 | PN.CDI ---
CDI
- -
CDI:
Physician Documentation Request
Admit Date: 02/07/24 20:36
Dear Doctor Eunice,
Patient admitted with RLE cellulitis.
02/10 [facility] note, 'Patient admitted with: Stage 1 sacral pressure injury.'
Physician documentation of the type and location of wounds is required for compliant documentation. Based on the above clinical findings and your assessment, please provide the following in your progress note:
Type (etiology) of ulcer/wound:
- Pressure (decubitus) ulcer
- Other
- Unable to determine
For a pressure ulcer, please also include the stage* of the ulcer:
- Stage 1 - Skin intact, non-blanchable redness
- Stage 2 - Partial thickness loss of dermis, includes intact or open blister
- Stage 3 - Full thickness tissue not including bone, tendon or muscle
- Stage 4 - Full thickness tissue loss, including exposed bone, tendon or muscle
- Unstageable - Full thickness loss in which the base of the ulcer is covered by slough (yellow, chauhan, dickens, green or brown) and/or eschar (chauhan, brown or black) in the wound bed.
- Unable to determine
Use of terms such as suspected, likely, concern for, or probable (associated with a specific diagnosis that is being evaluated, monitored, or treated as if it exists) are acceptable and can be coded in the inpatient setting, when documented at the
time of discharge.
Thank you,
Radha MARY,RN,CCDS
CDI Specialist
Available via [place] text
Please use your independent medical judgment in providing your response.
*Source: National Pressure Ulcer Advisory Panel (NPUAP)
--- NOTE | 2024-02-15 15:48 | PTCARENOTE ---
Pt AAO x3, forgetful; sl anxious at times. SCHWARTZ; needs encouragement to participate in ADLs. Refused OOB to chair activity this shift. VSS. On nc 2 lpm- pt refuses to attempt to wean O2; pulse ox 99%, no SOB noted. Abd soft, non-tender, trip PO;
incot sift BM. Incont urine. Foam dsgs intact on sacrum/mid back. Rt foot dsg/KATHIA wrap intact. resting in bed at present, no c/o; awaiting transfer to [facility].
--- NOTE | 2024-02-19 12:12 | PN.CDI ---
CDI
- -
CDI:
Physician Documentation Request
Admit Date: 02/07/24 20:36
Dear Doctor Ale,
Patient admitted with sepsis.
02/12 Op note, 'PROCEDURE PERFORMED: Right foot incision and drainage in multiple planes, right foot hematoma, with excisional debridement of all nonviable tissue. Dense subcutaneous and muscular layer.'
Please include in your progress note the following details regarding the documented excisional debridement:
1. Type of instrument used (#11 blade, #15 blade etc.)
2. Depth of debridement (skin, subcutaneous tissue, fascia, muscle, bone etc)
Use of terms such as suspected, likely, concern for, or probable (associated with a specific diagnosis that is being evaluated, monitored, or treated as if it exists) are acceptable and can be coded in the inpatient setting, when documented at the
time of discharge.
Thank you,
Radha MARY,RN,CCDS
CDI Specialist
Available via [place] text
Please use your independent medical judgment in providing your response.
--- NOTE | 2024-02-19 21:57 | W.PN.UPDATE ---
Update Note
Progress Note Update
For CDI and addendum excisional debridement performed to the level of deep fascia, #15 blade utilized
== END 2024-02-15 16:47 | DRG 853 ==
LOC: 4 EAST ACU 20:36
PROVIDERS: Internal Medicine; Student in an Organized Health Care Education/Training Program; ADMITTING PHYSICIAN Student in an Organized Health Care Education/Training Program; ATTENDING PHYSICIAN Hospitalist; CONSULT PHYSICIAN Internal Medicine Gastroenterology; CONSULT PHYSICIAN Internal Medicine Infectious Disease; CONSULT PHYSICIAN Student in an Organized Health Care Education/Training Program; EMERGENCY PHYSICIAN Student in an Organized Health Care Education/Training Program; FAMILY PHYSICIAN Family Medicine; OTHER PHYSICIAN Internal Medicine
PROC: 30233N1 Transfusion of Nonautologous Red Blood Cells into Peripheral Vein, Percutaneous Approach (ICD-10-PCS; 2024-02-11)
PROC: 0JBQ0ZZ Excision of Right Foot Subcutaneous Tissue and Fascia, Open Approach (ICD-10-PCS; 2024-02-13)
DX: A41.9 Sepsis, unspecified organism (principal); I50.33 Acute on chronic diastolic (congestive) heart failure; N18.4 Chronic kidney disease, stage 4 (severe); L03.115 Cellulitis of right lower limb; E87.1 Hypo-osmolality and hyponatremia; Z68.1 Body mass index [BMI] 19.9 or less, adult; I5A Non-ischemic myocardial injury (non-traumatic); L02.611 Cutaneous abscess of right foot; Z66 Do not resuscitate; I08.1 Rheumatic disorders of both mitral and tricuspid valves; D46.Z Other myelodysplastic syndromes; D63.8 Anemia in other chronic diseases classified elsewhere; D63.1 Anemia in chronic kidney disease; I12.9 Hypertensive chronic kidney disease with stage 1 through stage 4 chronic kidney disease, or unspecified chronic kidney disease; K74.60 Unspecified cirrhosis of liver; I48.0 Paroxysmal atrial fibrillation; I27.22 Pulmonary hypertension due to left heart disease; T50.1X6A Underdosing of loop [high-ceiling] diuretics, initial encounter; R82.71 Bacteriuria; R63.6 Underweight; L89.102 Pressure ulcer of unspecified part of back, stage 2; L89.151 Pressure ulcer of sacral region, stage 1; B96.89 Other specified bacterial agents as the cause of diseases classified elsewhere; K59.00 Constipation, unspecified; Z91.199 Patient's noncompliance with other medical treatment and regimen due to unspecified reason; Z91.128 Patient's intentional underdosing of medication regimen for other reason; Z88.2 Allergy status to sulfonamides
CPT/HCPCS: 71045; 71046; 73620; 73700; 74176; 76700; 80053; 80061; 81003; 81015; 82248; 82390; 82607; 82728; 83540; 83550; 83735; 83880; 84443; 84466; 84484; 85018; 85025; 85027; 85652; 86140; 86704; 86706; 86708; 86803; 86850; 86900; 86901; 86920; 86922; 87070; 87075; 87077; 87086; 87186; 87205; 87340; 93005; 93306; 93356; 93970; 93975; 94640; 97163; 97164; 97535; 99285; P9016; Q5106

== ENCOUNTER 2024-02-21 17:56 | Inpatient (IN) | payer MEDICARE, OTHER, SELFPAY ==
--- NOTE | 2024-02-21 14:15 | ED.GENMED ---
History of Present Illness
General
Chief Complaint: Abnormal Lab Value
Source: patient
Exam Limitations: none
Time Seen by Provider: 02/21/24 14:15
Nursing documentation reviewed up to this point in time: agreed with
History of Present Illness
History of Present Illness:
83-year-old female from [facility] presents for Hgb 6.8 at 5 a.m. Pt has no complaints. Was routinely tested for Covid yesterday and is positive. Pt was unaware she is Covid positive.
She typically uses O2 NC 2L. On arrival here pulse ox is 92% on 6L NC. She denies CP or feeling SOB. Denies abd pain, n/v/c. States she's had diarrhea past 2 days.
Admitted 02/06 to 02/14 for sepsis due to right foot abscess and cellulitis, acute on chronic heart failure, acute nonischemic myocardial injury, mild dysplastic syndrome, chronic CKD 4, hyponatremia
Podiatry I&D'd of R foot infected hematoma. ID recommended Doxycycline BID which she continues, to f/u with Podiatry as O/P
She was started on diuretic for CHFpEF
See by GI for cirrhosis and to f/u with GI as O/P
Past History
Past History
ED Past Medical History: Arrthythmia (Atrial fibrillation), CHF, HTN, Renal failure and Other (myelodysplastic syndrome, chronic Mccormick, ambulatory dysfunction, colitis, pneumonia, GI bleeding.)
ED Past Surgical History: Tonsilectomy
Social History
Tobacco: Non-smoker
Alcohol: None
Drug: None
Personal: Single
Living: [facility]
Employment: Not employed
Family History
Family History: Other
Review of Systems
Review of Systems
Allergies reviewed?: Yes
All Other Systems: ROS reviewed and negative except as documented in HPI and ROS
Constitutional: Reports fatigue
Respiratory: Denies cough or trouble breathing (Denies but her pulse ox is low and her respiratory rate is 26)
Cardiac: Denies chest pain
ABD/GI: Reports diarrhea; Denies abdominal pain, nausea, vomiting, bloody stools or black stools
: Reports incontinence
Musculoskeletal: Denies edema
Skin: Reports no symptoms
Neurological: Denies headache
Phy Exam
Physical Exam
Physical Exam:
GENERAL: No acute distress. Elderly and frail.
CONSTITUTIONAL: Afebrile.
EYES: clear, conjunctivae normal
ENMT: moist mucus membranes, Pharynx nl
RESPIRATORY: Regular respirations, nonlabored, lungs clear.
CARDIOVASCULAR: Regular rate and rhythm, no murmurs, no rubs.
GI: Soft, nontender, normal BS
Rectal: dark liquid stool, heme neg
MUSCULOSKELETAL: No edema. Well perfused.
SKIN: Warm, dry, pink
PSYCH: Depressed mood and affect. Well kept, interactive and appropriate
NEUROLOGIC: Awake, alert and oriented. No focal neurological deficits
Course
Orders/Labs/Results
Orders:
Orders
02/21/24 14:07
Cardiac Monitoring- Treatment ONCE
IV Insert/Care/Rem.- Treatment PRN
O2 Therapy [RESP] Urgent
Titrate/Wean O2 to maintain O2 sat greater than (%): 93
Special Instructions: MAINTAIN CONTINOUS O2 SATS > OR = 93%
Pulse Ox/spot Check [RESP] Urgent
Quantity: 1
Special Instructions: ON ROOM AIR
02/21/24 14:09
Type+Screen Urgent
Complete Blood Count/With Diff Urgent
Comprehensive Metabolic Panel Urgent
02/21/24 14:43
CR Chest - 2 Views Urgent
Comment:
Reason For Exam: Hypoxemia, covid positive
02/21/24 14:49
Straight cath- Treatment ONCE
02/21/24 14:50
Urinalysis Reflex To Culture Urgent
Date Specimen was Collected: 02/21/24
Time Specimen was Collected: 14:53
02/21/24 15:30
0.9% Sodium Chloride 500 ml [Nss] 500 ml IV BOLUS
02/21/24 16:20
* Blood Bank Products Urgent
Blood Bank Products: *Packed RBC Leuko(PRBC's)
Quantity: 1
Transfuse Today: Yes
Reason: Anemia
IV Insert/Care/Rem.- Treatment PRN
02/21/24 16:26
Sodium Zirconium Cyclosilicate [Lokelma] 10 gram PO NOW STA
02/21/24 16:27
Electrocardiogram (*1) Urgent
Reason for Study: Other
Other Reason for Exam: Hyperkalemia
EKG- Treatment ONCE
02/21/24 16:32
COVID-19 Antigen Urgent
Source: Nasal Swab
Abnormal Lab Results
02/21/24
14:09
WBC 3.2 L 10^3/uL
(4.8-10.8)
RBC 2.06 L 10^6/uL
(4.20-5.40)
Hgb 7.0 L g/dL
(12.0-16.0)
Hct 21.7 L %
(37.0-47.0)
MCV 105.3 H fL
(81.0-99.0)
MCH 34.0 H pg
(27.0-31.0)
MCHC 32.3 L g/dL
(33.0-37.0)
RDW 30.6 H %
(11.5-14.5)
MPV 12.1 H fL
(7.4-10.4)
Absolute Neuts (auto) 0.4 L* 10^3/uL
(1.4-6.5)
Immature Gran % 1.0 H %
(0-0.5)
Neutrophils % 12.0 L %
(42.2-75.2)
Lymphocytes % 67.9 H %
(20.5-51.1)
Monocytes % 14.9 H %
(1.7-9.3)
Potassium 5.7 H mmol/L
(3.5-5.1)
BUN 89 H mg/dl
(7-17)
Creatinine 2.0 H mg/dL
(0.6-1.0)
Glucose 105 H mg/dl
(70-99)
AST 74 H U/L
(14-36)
02/21/24 14:09
02/21/24 14:09
Vital Signs
Initial and Last Documented VS:
Initial Vital Signs
Temp Pulse Resp BP Pulse Ox
99.8 F 97 26 127/50 92
02/21/24 14:20 02/21/24 14:20 02/21/24 14:20 02/21/24 14:20 02/21/24 14:20
Last Documented Vital Signs
Temp Pulse Resp BP Pulse Ox
99.8 F 97 26 127/50 92
02/21/24 14:20 02/21/24 14:20 02/21/24 14:20 02/21/24 14:20 02/21/24 14:20
MDM/Problems Addressed
Differential Diagnosis Includes:
Covid, PNA, dehydration, volume depletion, GI bleed
MDM/Problems Addressed:
83-year-old female from [facility] presents for Hgb 6.8 at 5 a.m. Pt has no complaints. Was routinely tested for Covid yesterday and is positive. Pt was unaware she is Covid positive.
She typically uses O2 NC 2L. On arrival here pulse ox is 92% on 6L NC. She denies CP or feeling SOB. Denies abd pain, n/v/c. States she's had diarrhea past 2 days.
Admitted 02/06 to 02/14 for sepsis due to right foot abscess and cellulitis, acute on chronic heart failure, acute nonischemic myocardial injury, mild dysplastic syndrome, chronic CKD 4, hyponatremia
Podiatry I&D'd of R foot infected hematoma. ID recommended Doxycycline BID which she continues, to f/u with Podiatry as O/P
She was started on diuretic for CHFpEF
See by GI for cirrhosis and to f/u with GI as O/P
Pt frail, ill appearing but stable
History of MDS
2:45 PM:
CBC: Hgb 7.0 Absolute Neutrophils 0.4
CMP: Potassium 5.7 (possibly from volume depletion, kidney impairment, improved from 6.0 earlier this morning). BUN/creatinine 89/2.0 consistent with her baseline
Pulse ox 83% on 6L O2 NC, Good pleth, high flow O2 ordered.
3:45 p.m.
Pt returned from xray and her pulse ox is now 100% on 2L NC. High flow O2 order DC'd.
4:15 p.m.
CXR: Radiology report read: IMPRESSION:
Small to moderate size right pleural effusion.
Plan: Admit: Mild hyperkalemia, Neutropenia
Hospitalist notified of admission.
*Critical Care Note
Total Time (30-74mins, 75-104mins- exclusive of procedures): Not Applicable
ED Attending Note
-
Portions of this chart may have been created with voice recognition software.� Occasional wrong word or��sound alike� substitutions may have occurred due to the inherent limitations of voice recognition software.
Discharge Plan
Departure
Patient Disposition: Admit
Date of Disposition: 02/21/24
Time of Disposition: 16:21
Admit to: Med/Surg
Presentation/result/management discussed w/ accepting MD/DO: Hospitalist
Condition: Serious
Discharge Problem:
Neutropenia, Anemia, CKD (chronic kidney disease)
Prescriptions:
No Action
[id number]-Tlemdxjre serr [Osteo Bi-Flex (5-Loxin)] 1,500-400-100 mg-unit-mg Tablet
1 tab PO BID
diltiazem HCl 180 MG capsule,extended release 24hr
180 mg PO BID
Retacrit 40,000 unit/mL Solution
60,000 unit SC Q2W
furosemide 40 mg Tablet
40 mg PO DAILY Qty: 0 0RF
acetaminophen 325 mg Tablet
650 mg PO Q6HPRN PRN (Reason: mild pain/ fever>100.5F) Qty: 0 0RF
lidocaine 4 % Adhesive Patch,Medicated
1 patch topical HS Qty: 0 0RF
polyethylene glycol 3350 [HealthyLax] 17 gram Powder In Packet
17 g PO DAILY Qty: 0 0RF
doxycycline hyclate 100 mg Capsule
100 mg PO Q12 Qty: 27 0RF
Rx Instructions:
Total of 2-week course, end on 02/29/24
Theragen Tablet
1 tab PO DAILY
magnesium hydroxide [Milk of Magnesia] 400 mg/5 mL Suspension
2,400 mg PO HSPRN PRN (Reason: if no bm on 2nd day)
bisacodyl [Dulcolax (bisacodyl)] 10 mg Suppository
10 mg VT [id number] PRN (Reason: if no bm on 3rd day)
Fleet Enema 19-7 gram/118 mL Enema
118 ml VT DAILYPRN PRN (Reason: if no bm on 4th day)
calcium carbonate [Tums 500] 500 mg calcium (1,250 mg) Tablet,Chewable
1,000 mg PO DAILY
cholecalciferol (vitamin D3) [Vitamin D3] 50 mcg (2,000 unit) Tablet
50 mcg PO DAILY
Referrals:
Jake Coleman MD [Family Provider] -
Interventions
Interventions:
*Risk Screen - Suicide Last Done: 02/21/24 14:20
*General Assessment Last Done: 02/21/24 14:20
*Neglect/Abuse Screening Last Done: 02/21/24 14:20
*ED COVID-19 Vaccine History Last Done: 02/21/24 14:20
Discharge Date and Time
Print Language: SOU[place]
[2024-02-21 14:20] VITALS: BP 127/50; BMI 16.6
[2024-02-21 14:50] LABS: ALT (SGPT) 25 U/L (0-35); AST (SGOT) 74 U/L (14-36); Albumin 3.6 g/dl (3.5-5.0); Alkaline Phosphatase 78 U/L (38-126); Blood Urea Nitrogen 89 mg/dl (7-17); Calcium 9.4 mg/dl (8.4-10.2); Carbon Dioxide 28 mmol/L (22-30); Chloride 101 mmol/L (98-107); Estimated Creatinine Clearance 14 ml/min; Glucose 105 mg/dl (70-99); Potassium 5.7 mmol/L (3.5-5.1); Sodium 135 mmol/L (135-145); Total Bilirubin 1.1 mg/dl (0.2-1.3); Total Protein 7.1 g/dl (6.3-8.2); eGFR 24.33
[2024-02-21 15:41] LABS: % Basophils 1.3 % (0-2); % Eosinophils 2.9 % (0-6); % Lymphocytes 67.9 % (20.5-51.1); % Monocytes 14.9 % (1.7-9.3); Absolute Eosinophils 0.1 10^3/uL (0-0.7); Absolute Lymphocytes 2.1 10^3/uL (1.2-3.4); Absolute Monocytes 0.5 10^3/uL (0.1-0.6); Absolute Neutrophils 0.4 10^3/uL (1.4-6.5); Hematocrit 21.7 % (37.0-47.0); Mean Corp Hgb Conc. 32.3 g/dL (33.0-37.0); Mean Corpuscular Volume 105.3 fL (81.0-99.0); Mean Platelet Volume 12.1 fL (7.4-10.4); Nucleated Red Blood Cells % 0 %; Platelet Count 302 10^3/uL (130-400); Red Blood Cell Count 2.06 10^6/uL (4.20-5.40); Red Cell Dist. Width 30.6 % (11.5-14.5); White Blood Cell Count 3.2 10^3/uL (4.8-10.8)
--- NOTE | 2024-02-21 15:56 | EDRN ---
Respiratory therapist called to set patient up on high flow O2. Upon arrival to department it was noted the SPO2 on 4 liters was 100% and respiratory dropped the O2 level to 2 liters via nasal ans SPO2 maintained at 100%. This RN and Jazmyn from
respiratory spoke with Guillermina GAN and then reevaluated the patient to verify the SPO2 is 100% on 2 liters and the patient appears and says she is comfortable. High flow O2 order canceled.
[2024-02-21 16:00] VITALS: BP 130/55
--- NOTE | 2024-02-21 16:28 | HPS.HSE ---
Addendum entered and electronically signed by Jaycee Hernandez MD 02/21/24 18:33:
pt seen and examined independently--agree with DUTY ENGINEER note
GENERAL: chronically ill appearing female SOB and fatigued--cachectic
HEENT: NC/AT--O2 NC
HEART: regular rate and rhythm, +S1, +S2
LUNGS : clear to auscultation bilaterally
ABDOM: soft, nontender, nondistended, + bowel sounds
EXT: no cyanosis, clubbing, or edema--right foot with surgical shoe in place
NEUROLOGIC: grossly intact
Acute on chronic anemia secondary to MDS--Hgb 7 was 8.8 on 02/15/2024--She did have debridement of a foot hematoma on 02/13/2024---Patient follows with [facility] for MDS---Receives Retacrit 60,000 units MO TH---Transfuse 1 unit PRBC--watch volume
MDS--with leukopenia/neutropenia and anemia--follows with [facility] --Retacrit as above
COVID positive with small/Moderate RIGHT SIDED PLEURAL EFFUSION--Was routinely? tested yesterday at [facility] and was positive--recheck here positive, will need isolation from 02/19 through 03/01-- Reports fatigue, diarrhea for the past 2
days--with acute hypoxemic resp failure/insufficiency as was 92% initially on 6 L and is now currently 100% on 2 L nasal cannula--hold on active COVID treatments for now as appeared to have no symptoms and was tested routinely
diarrhea/soft stool--likely due to COVID but pt on doxycycline for infected foot wound--check stool for C. diff
Hyperkalemia in setting of SEGUN on CKD 4--maybe related to SEGUN with diuretic (lasix)--s/p lokelma--follow K levels
SEGUN on CKD 4--Creat 2.0, most recent creat 1.4 on 02/15/2024 (baseline 1.1�1.3 in 2021)--IV NSS 500 cc bolus given in ER--Follow BMP--also giving pRBC
sepsis due to right foot abscess and cellulitis requiring incision and drainage of right foot infected hematoma on 02/13/2024 ( 02/06 - 02/15/2024 admission)--she was converted to doxycycline 100 mg q12 h until 02/29/24
Chronic heart failure preserved EF on chronic 2 L nasal cannula (chronic hypoxemic resp failure)/Pulmonary HTN/Severe tricuspid regurg/Chronic lower extremity edema--check I/O, daily weights--Hold IV Lasix 40 mg daily--Patient follows with [facility]
Paroxysmal A-fib--Continue diltiazem--She has declined AC therapy in the past
Cirrhotic liver/chronic hepatomegaly thought to be related to MDS--Was seen by GI last admission recommended follow-up outpatient
Cachexia secondary to severe protein malnutrition�-BMI 16.6--Consult dietary
DVT prophylaxis--Subcu heparin
code status --DNR
Original Note:
Family Physician
-
Family Physician: Jake Coleman MD
Chief Complaint
-
Fatigue, diarrhea, outpatient hemoglobin low
History of Present Illness
83-year-old female from [facility] presents to ER for hemoglobin outpatient of 6.8. She was routinely tested yesterday for COVID and was positive. Of note she has had diarrhea for the past 2 days. She is on chronic 2 L nasal cannula on
arrival since her last discharge. Her pulse ox was 92% on 6 L nasal cannula but after return from CAT scan she is on a percent on 2 L nasal cannula. She is noted to have a small to moderate right-sided pleural effusion on chest x-ray. She did
have a large soft diarrhea up to her abdomen in her diaper per nurse at bedside. Her right foot has dressing intact with no surrounding erythema. Patient reports a slight sore throat denies headache, fever, chills, chest pain, palpitations,
abdominal pain, nausea, vomiting, urinary symptoms.
The patient had a recent admission 02/06 - 02/15/2024 status post sepsis due to right foot abscess and cellulitis requiring incision and drainage of right foot infected hematoma on 02/13/2024 she was converted to doxycycline 100 mg twice daily for 14 days
on discharge due to foot culture showing Citrobacter. She was also treated for acute on chronic heart failure with diuresis improving symptoms. She was diagnosed with cirrhosis seen by GI and recommended outpatient follow-up.
Past medical history includes myelodysplastic syndrome, CKD 4, hyponatremia, chronic heart failure preserved EF, severe pulmonary HTN, benign HTN recent right foot abscess/cellulitis/infected hematoma growing Citrobacter, paroxysmal A-fib,
Medical History
Past Medical History
Past Medical History: Reports Other (MDS follwed at [facility], chronic anemia, CKD, paroxysmal atrial fibrillation, HFpEF, severe pulmonary HTN, primary HTN)
Additional Past Medical History:
Right foot culture showing Citrobacter on 02/13/2024
Past Surgical History: Reports Other
Additional Past Surgical History:
incision and drainage of right foot infected hematoma on 02/13/2024
Social History
Tobacco: Non-smoker
Alcohol: None
Personal: Single
Living: Shelter ([facility])
Employment: Retired
Family History
Family History: Not pertinent
Allergies / Home Medications
Allergies reflects when Allergies were last updated in [facility].
Home Medications with original date entered in [facility]
Allergy/Medication List:
Allergies
Allergy/AdvReac Type Severity Reaction Status Date / Time
Sulfa (Sulfonamide Allergy Unknown Verified 01/04/22 00:16
Antibiotics)
venom-honey bee Allergy Swelling Verified 01/04/22 00:16
Home Medications
diltiazem HCl 180 mg capsule,extended release 24 hr 180 mg PO BID Blood Pressure 02/07/24
glucosamine RQs-L4-Nhyizafoz rosi 1,500 mg-400 unit-100 mg tablet (Osteo Bi-Flex (5-Loxin)) 1 tab PO BID Supplement 02/07/24
epoetin bob-epbx 40,000 unit/mL injection solution (Retacrit) 60,000 unit SC Q2W MDS 02/11/24
acetaminophen 325 mg tablet 650 mg (2 x 325 mg) PO Q6HPRN PRN mild pain/ fever>100.5F #0 tabs 02/14/24
furosemide 40 mg tablet 40 mg PO DAILY #0 tabs 02/14/24
lidocaine 4 % topical patch 1 patch topical HS #0 ea 02/14/24
polyethylene glycol 3350 17 gram oral powder packet (HealthyLax) 17 g PO DAILY #0 ea 02/14/24
doxycycline hyclate 100 mg capsule 100 mg PO Q12 #27 caps 02/15/24
bisacodyl 10 mg rectal suppository (Dulcolax (bisacodyl)) 10 mg UT [id number] PRN if no bm on 3rd day 02/21/24
calcium carbonate 1,000 mg PO DAILY 02/21/24
cholecalciferol (vitamin D3) 50 mcg (2,000 unit) tablet (Vitamin D3) 50 mcg PO DAILY 02/21/24
magnesium hydroxide 400 mg/5 mL oral suspension (Milk of Magnesia) 2,400 mg PO HSPRN PRN if no bm on 2nd day 02/21/24
sodium phosphates 19 gram-7 gram/118 mL enema (Fleet Enema) 118 ml UT DAILYPRN PRN if no bm on 4th day 02/21/24
therapeutic multivitamin 1 tab PO DAILY 02/21/24
Review of Systems
-
History Source: Patient
A 12 point ROS was completed and negative except as noted: Yes
Constitutional: Reports Fatigue; Denies Fever or Chills
EENT: Reports Sore Throat; Denies Runny Nose
Respiratory: Reports Trouble Breathing; Denies Cough
Cardiac: Denies Chest Pain, Diaphoresis, Palpitations or Syncope
Abdomen/GI: Reports Diarrhea (X 2 days); Denies Abdominal Pain, Nausea, Vomiting, Constipated, Bloody Stools or Black Stools
: Denies Dysuria, Frequency, Flank Pain, Incontinence, Difficulty Voiding or Urgency
Musculoskeletal: Denies Joint Pain or Edema
Skin: Reports Other (Dressing intact over right foot prior I&D of hematoma on 02/13/2024); Denies Itching or Rash
Neurological: Reports Weakness (Generalized); Denies Dizzy or Headache
Endocrine: Reports No Symptoms
Hematologic/Lymphatic: Reports No Symptoms
Psych: Reports Calm
Physical Exam
Vital Signs
Vital Signs
Temp Pulse Resp BP Pulse Ox
99.8 F 97 26 127/50 92
02/21/24 14:20 02/21/24 14:20 02/21/24 14:20 02/21/24 14:20 02/21/24 14:20
Physical Exam
General: Comfortable, Conversant and Cachectic; No Fever
HEENT: NormoCephalic, Anicteric, PERRLA, [place] Conjunctivae, No Ptosis, Oxygen (2 L nasal cannula) and Other (Dry oral mucosa)
Respiratory: Other (Decreased lung sounds right lower base left CTA); No Rhonchi or Crackles
Cardiac: S1/S2 and Regular Rhythm; No Murmur, Rub, Gallop or Peripheral Edema
GI: Non Tender, Non Distended, Normal Bowel Sounds and No Hepatosplenomegaly
Rectal: Deferred by Provider
Genito-urinary: Deferred by me
Musculoskeletal: No Clubbing, No Cyanosis and No Edema
Skin: Warm, Dry and Other (Dressing intact over right foot prior I&D of hematoma on 02/13/2024 no surrounding erythema or drainage appreciated); No Rash
Neuro: AO x 3 (But very weak slow to answer), Nonfocal/grossly intact, Cranial Nerves Intact and No Sensory Deficits; No Slurred Speech, Facial Droop, Tremors or Sedated
Psych: Calm
Laboratory Results
-
02/21/24 14:09
02/21/24 14:09
Laboratory Results
Total Bilirubin 1.1 mg/dl (0.2-1.3) 02/21/24 14:09
AST 74 U/L (14-36) H 02/21/24 14:09
ALT 25 U/L (0-35) 02/21/24 14:09
Alkaline Phosphatase 78 U/L (38-126) 02/21/24 14:09
Data Reviewed
-
Diagnostic Radiology: Report Reviewed by me
Lab Data: Labs Reviewed by me
Impression/Plan
-
Impression/plan:
Admit to telemetry
#COVID positive with small/Moderate RIGHT SIDED PLEURAL EFFUSION
Was routinely tested yesterday at [facility] and is positive. Reports fatigue, diarrhea for the past 2 days
92 initially on 6 L is currently 100% on 2 L nasal cannula
-Recheck COVID swab
-COVID precautions
-Per nursing had soft liquid stool up to her abdomen and diaper
-Tylenol as needed
-Imodium for diarrhea
-PT/OT/case management eval
CXR: Small to moderate-sized right pleural effusion
#Acute on chronic anemia secondary to MDS
Hgb 7, absolute neuts 0.4, was 8.8 on 02/15/2024
She did have debridement of a foot hematoma on 02/13/2024
-Patient follows with [facility] for [facility]DS
-Receives Retacrit 60,000 units MO TH
-type and screen obtained by ER
Transfuse 1 unit PRBC
folow cbc
#Hyperkalemia in setting of CKD 4
K 5.7
Lokelma 10 g given in ER
-Follow BMP
#SEGUN on CKD 4
Creat 2 most recent creat 1.4 on 02/15/2024 (baseline 1.1�1.3 in 2021)
IV NSS 500 cc bolus given in ER
-Follow BMP
02/06 - 02/15/2024 status post sepsis due to right foot abscess and cellulitis requiring incision and drainage of right foot infected hematoma on 02/13/2024
she was converted to doxycycline 100 mg q12 h until 02/29/24
- check C diff
#Chronic heart failure preserved EF on chronic 2 L nasal cannula
#Pulmonary HTN
#Severe tricuspid regurg
#Chronic lower extremity edema
I/O, daily weights
--Hold IV Lasix 40 mg daily
Patient follows with Dr. Davis
TTE 01/20/24
-Left ventricular ejection fraction is 70-75%. Normal regional wall motion.
-Enlarged right ventricular size. Normal right ventricular systolic function.
-Moderately to severely dilated left atrium. Moderately dilated right atrium.
-Mild to moderate mitral regurgitation.
-Severe tricuspid regurgitation. Estimated pulmonary artery pressure of 75-80 mmhg
#Paroxysmal A-fib
-Continue diltiazem
-She has declined AC therapy in the past
#Cirrhotic liver/chronic hepatomegaly thought to be related to MDS
Was seen by GI last admission recommended follow-up outpatient
#Cachexia secondary to protein malnutrition�BMI 16.6
Consult dietary
DVT prophylaxis
Subcu heparin
DNR
[2024-02-21] MEDS: NSS 500 IV (16:32)
[2024-02-21 17:02] VITALS: BP 123/52
[2024-02-21 17:04] LABS: Urine Albumin Trace (Neg - Trace); Urine Bilirubin Negative (Negative); Urine Character Clear (Clear); Urine Color Yellow; Urine Glucose Negative (Negative); Urine Ketone Negative (Negative); Urine Leukocyte Negative (Negative); Urine Nitrite Negative (Negative); Urine Occult Blood Negative (Negative); Urine Specific Gravity 1.015 (<1.030); Urine Urobilinogen Negative (Neg - 1+)
[2024-02-21 17:32] LABS: COVID-19 Antigen Positive (Negative)
[2024-02-21 18:43] VITALS: BMI 15.2
[2024-02-21 19:50] VITALS: BP 139/60
[2024-02-21 20:19] VITALS: BP 126/61
[2024-02-21] MEDS: CARDIZEM CD 180 MG PO (20:27)
[2024-02-21] MEDS: HEPARIN 5000 UNITS SC (20:27)
[2024-02-21] MEDS: TYLENOL 650 MG PO (20:27)
[2024-02-21] MEDS: VIBRAMYCIN 100 MG PO (20:27)
[2024-02-21 20:32] VITALS: BMI 15.2
[2024-02-21 23:50] VITALS: BP 126/59
--- NOTE | 2024-02-21 23:53 | PTCARENOTE ---
Temp on arrival to floor 101.9. Med with tylenol as ordered. Repeat temp at 2200 was 99.9 Discussed with maria del carmen [facility]. Will hold off on blood transfusion to see if pt has improvement in temp.
[2024-02-22] VITALS (11 sets, daily range): BP systolic 110–143; BP diastolic 49–70; BMI 15.2
[2024-02-22] MEDS: TYLENOL 650 MG PO (03:58)
--- NOTE | 2024-02-22 04:07 | PTCARENOTE ---
Pt's temp 102.1 Discussed with house SILK SCREEN FRAME ASSEMBLER. Will continue to hold blood transfusion overnight and attending can address in am.
[2024-02-22 07:38] LABS: % Basophils 0.9 % (0-2); % Eosinophils 3.4 % (0-6); % Immature Granulocytes 0.6 % (0-0.5); % Lymphocytes 70.4 % (20.5-51.1); % Monocytes 17.4 % (1.7-9.3); % Neutrophils 7.3 % (42.2-75.2); Absolute Eosinophils 0.1 10^3/uL (0-0.7); Absolute Lymphocytes 2.3 10^3/uL (1.2-3.4); Absolute Monocytes 0.6 10^3/uL (0.1-0.6); Absolute Neutrophils 0.2 10^3/uL (1.4-6.5); Hematocrit 19.5 % (37.0-47.0); Hemoglobin 6.3 g/dL (12.0-16.0); Mean Corp Hgb Conc. 32.3 g/dL (33.0-37.0); Mean Corpuscular Hgb 34.2 pg (27.0-31.0); Mean Platelet Volume 12.2 fL (7.4-10.4); Nucleated Red Blood Cells % 0.6 %; Platelet Count 292 10^3/uL (130-400); Red Blood Cell Count 1.84 10^6/uL (4.20-5.40); Red Cell Dist. Width 29.7 % (11.5-14.5); White Blood Cell Count 3.3 10^3/uL (4.8-10.8)
[2024-02-22 07:52] LABS: ALT (SGPT) 24 U/L (0-35); AST (SGOT) 71 U/L (14-36); Albumin 3.2 g/dl (3.5-5.0); Alkaline Phosphatase 68 U/L (38-126); Blood Urea Nitrogen 87 mg/dl (7-17); Calcium 8.9 mg/dl (8.4-10.2); Carbon Dioxide 28 mmol/L (22-30); Chloride 101 mmol/L (98-107); Estimated Creatinine Clearance 14 ml/min; Glucose 96 mg/dl (70-99); Potassium 5.2 mmol/L (3.5-5.1); Sodium 136 mmol/L (135-145); Total Bilirubin 1.1 mg/dl (0.2-1.3); Total Protein 6.7 g/dl (6.3-8.2); eGFR 27.61
--- NOTE | 2024-02-22 08:44 | CON.ONC ---
Impression
Impression
Acute on chronic anemia
Neutropenia
SEGUN w/ CKD4
Hx MDS
Chronic hepatomegaly
COVID-19 infection w/ hypoxemia
Small to moderate pleural effusion
Right foot abscess/cellulitis s/p I&D 02/12 on Doxycycline
Cachexia
Fevers
Plan
Plan
Monitor CBC w/ diff daily
Neutropenic precautions
02/22/24 Hgb 6.3, Hct 19.5, MCV 106, ANC 200
Transfuse PRN for Hgb <7
2 units PRBCs ordered; 1 unit currently transfusing
Hematest all stools
02/20 C. diff negative
Additional labs ordered and pending: B12/folate, reticulocyte count, LDH, haptoglobin, iron panel/ferritin
Requested records from [facility]
PHILOMENA recommended as per outpatient management - unclear dose and frequency
Supportive care; wean oxygen as able
COVID precautions
We will follow.
Patient History
History of Present Illness
Hemalatha Sarmiento is an 83 year old female resident of [facility] who presented to the ER for evaluation of abnormal CBC revealing Hgb of 6.8. She is asymptomatic; denies chest pain, shortness of breath, dizziness. She notes diarrhea x2
days. She tested positive for COVID-19 two days ago although she has been asymptomatic. She wears chronic 2L nasal cannula oxygen, however, she required 6L in the ER. She was recently admitted for right foot abscess/cellulitis 02/06-02/14 and underwent
I&D of infected right foot hematoma with Podiatry. She was started in Doxycycline BID by Infectious Disease which she continues. She has history of MDS. She was previously known to Dr. Song with [facility]; last seen in the office in 2012. She
transfered care to [facility] where she was receiving low-dose Neupogen and Procrit. She underwent BMbx in 2010.
Past-Medical/Surgical History
MDS
Atrial fibrillation
CHF
HTN
CKD
Ambulatory dysfunction
Chronic oxygen use (2L NC)
PNA
Tonsillectomy
GIB, hx colitis
Hx iron overload w/ negative hemochromatosis mutation testing
Patient Medication
�Medication �Instructions �Recorded �Confirmed �Last Taken �Type
diltiazem HCl 180 mg 180 mg PO BID Blood Pressure 02/07/24 02/21/24 02/06/24 History
capsule,extended release 24 hr
glucosamine [id number] 1 tab PO BID Supplement 02/07/24 02/21/24 02/06/24 History
rosi 1,500 mg-400 unit-100 mg
tablet (Osteo Bi-Flex (5-Loxin))
epoetin bob-epbx 40,000 unit/mL 60,000 unit SC Q2W MDS 02/11/24 02/21/24 02/07/24 History
injection solution (Retacrit)
acetaminophen 325 mg tablet 650 mg (2 x 325 mg) PO Q6HPRN PRN 02/14/24 02/21/24 Unknown Rx
mild pain/ fever>100.5F #0 tabs
furosemide 40 mg tablet 40 mg PO DAILY #0 tabs 02/14/24 02/21/24 Unknown Rx
polyethylene glycol 3350 17 gram 17 g PO DAILY #0 ea 02/14/24 02/21/24 Unknown Rx
oral powder packet (HealthyLax)
doxycycline hyclate 100 mg capsule 100 mg PO Q12 #27 caps 02/15/24 02/21/24 Unknown Rx
bisacodyl 10 mg rectal suppository 10 mg CO [id number] PRN if no bm on 02/21/24 02/21/24 Unknown History
(Dulcolax (bisacodyl)) 3rd day
calcium carbonate 1,000 mg PO DAILY Supplement 02/21/24 02/21/24 Unknown History
cholecalciferol (vitamin D3) 50 50 mcg PO DAILY Supplement 02/21/24 02/21/24 Unknown History
mcg (2,000 unit) tablet (Vitamin
D3)
magnesium hydroxide 400 mg/5 mL 2,400 mg PO HSPRN PRN if no bm on 02/21/24 02/21/24 Unknown History
oral suspension (Milk of Magnesia) 2nd day
sodium phosphates 19 gram-7 118 ml CO DAILYPRN PRN if no bm on 02/21/24 02/21/24 Unknown History
gram/118 mL enema (Fleet Enema) 4th day
therapeutic multivitamin 1 tab PO DAILY Supplement 02/21/24 02/21/24 Unknown History
lidocaine 4 % topical patch 1 patch topical HS Pain 02/22/24 02/21/24 Unknown History
Active Medications
Generic Name Dose Route Start Last Admin
Trade Name Freq PRN Reason Stop Dose Admin
Acetaminophen 650 mg 02/21/24 20:08 02/22/24 03:58
Acetaminophen 325 Mg Tablet PO 03/20/24 20:07 650 mg
Q4HPRN PRN Administration
mild pain/CASTRO/temp> 100.4F
Calcium Carbonate 2 tablet 02/22/24 08:00
Calcium Carbonate 500 Mg (Regular-Strength) Chew Tablet PO 03/21/24 07:59
DAILY TEDDY
Cholecalciferol 50 mcg 02/22/24 08:00
Cholecalciferol (Vitamin D3) 50 Mcg Tablet (2,000 Units) PO 03/21/24 07:59
DAILY TEDDY
Diltiazem HCl 180 mg 02/21/24 20:08 02/21/24 20:27
Diltiazem 180 Mg Extended Release (24 H) Capsule PO 03/20/24 20:07 180 mg
BID TEDDY Administration
Diphenoxylate HCl/Atropine 1 tablet 02/21/24 20:08
Diphenoxylate/Atropine Tablet PO 03/20/24 20:07
Q6HPRN PRN
diarrhea
Doxycycline Hyclate 100 mg 02/21/24 20:08 02/21/24 20:27
Doxycycline 100 Mg Capsule PO 02/29/24 17:05 100 mg
Q12 TEDDY Administration
Heparin Sodium 5,000 units 02/21/24 20:08 02/21/24 20:27
Heparin 5,000 Units/Ml 1 Ml Vial SC 03/20/24 20:07 5,000 units
Q12 TEDDY Administration
Multivitamins Therapeutic 1 tablet 02/22/24 08:00
Multivitamin Tablet PO 03/21/24 07:59
DAILY TEDDY
Sodium Chloride 0 flush 02/21/24 21:00
Sodium Chloride 0.9% (Flush) Syringe IV 03/20/24 20:59
PER PROTOCOL TEDDY
Review of Systems
-
Unable to obtain full review of systems at this time due to: Acuity
History Source: Patient, Fpc, Coordinated Provider and Records
Constitutional: Reports No Appetite, Fatigue and Weakness
Respiratory: Reports Trouble Breathing
Cardiac: Reports No Symptoms
GI: Reports No Symptoms
Breast: Reports N/A
: Reports No Symptoms
Musculoskeletal: Reports No Symptoms
Skin: Reports Sores
Neuro: Reports Weakness
Endocrine: Reports No Symptoms
Hematologic/Lymphatic: Reports Bruising
Allergy / Immunology: Reports No Symptoms
Psych: Reports No Symptoms
Physical Exam
-
Patient is lying in bed. WOCN performing wound care to lower extremities. RN at bedside. Patient states she is thirsty. She appears to be confused
General: Conversant, Appears Chronically Ill and Cachetic
HEENT: Negative Jaundice
Pulmonary: Other (6L oxygen via nasal cannula)
Musculoskeletal: No Edema
Neurology: Non Focal
Skin: Dry and Other (ecchymosis scattered, foot wounds)
Hematologic / Lymphatic: No Petechiae
Psych: Confused and Other (flat affect )
Labs
Lab Results
WBC 3.3 10^3/uL (4.8-10.8) L 02/22/24 07:00
RBC 1.84 10^6/uL (4.20-5.40) L 02/22/24 07:00
Hgb 6.3 g/dL (12.0-16.0) L* 02/22/24 07:00
Hct 19.5 % (37.0-47.0) L* 02/22/24 07:00
MCV 106.0 fL (81.0-99.0) H 02/22/24 07:00
MCH 34.2 pg (27.0-31.0) H 02/22/24 07:00
MCHC 32.3 g/dL (33.0-37.0) L 02/22/24 07:00
RDW 29.7 % (11.5-14.5) H 02/22/24 07:00
Plt Count 292 10^3/uL (130-400) 02/22/24 07:00
MPV 12.2 fL (7.4-10.4) H 02/22/24 07:00
Abs Immat Gran (auto) 0.0 10^3/uL (0-0.05) 02/22/24 07:00
Absolute Neuts (auto) 0.2 10^3/uL (1.4-6.5) L* 02/22/24 07:00
Absolute Lymphs (auto) 2.3 10^3/uL (1.2-3.4) 02/22/24 07:00
Absolute Monos (auto) 0.6 10^3/uL (0.1-0.6) 02/22/24 07:00
Absolute Eos (auto) 0.1 10^3/uL (0-0.7) 02/22/24 07:00
Absolute Basos (auto) 0.0 10^3/uL (0-0.2) 02/22/24 07:00
Immature Gran % 0.6 % (0-0.5) H 02/22/24 07:00
Neutrophils % 7.3 % (42.2-75.2) L 02/22/24 07:00
Lymphocytes % 70.4 % (20.5-51.1) H 02/22/24 07:00
Monocytes % 17.4 % (1.7-9.3) H 02/22/24 07:00
Eosinophils % 3.4 % (0-6) 02/22/24 07:00
Basophils % 0.9 % (0-2) 02/22/24 07:00
Creatinine 1.8 mg/dL (0.6-1.0) H 02/22/24 07:00
Vital Signs
Vital Signs
Temp Pulse Resp BP Pulse Ox
100.4 F H 101 14 137/58 96
02/22/24 05:00 02/22/24 03:16 02/22/24 03:16 02/22/24 03:16 02/22/24 03:16
02/21/24 CXR: Small to moderate size right pleural effusion.
[2024-02-22] MEDS: VIBRAMYCIN 100 MG PO (09:14)
[2024-02-22] MEDS: CARDIZEM CD 180 MG PO ×2 (09:14→20:22)
[2024-02-22] MEDS: VITAMIN D3 (cholecalciferol) 50 MCG PO (09:15)
[2024-02-22] MEDS: TUMS 2 TABLET PO (09:15)
[2024-02-22] MEDS: HEPARIN 5000 UNITS SC ×2 (09:15→20:22)
[2024-02-22] MEDS: THERAGRAN 1 TABLET PO (09:15)
[2024-02-22 09:59] LABS: Iron 123 ug/dl (37-170); LDH 237 U/L (120-246)
[2024-02-22 10:08] LABS: Percent Saturation 96 % (20-50); Total Iron Binding Capacity 127 ug/dl (265-497)
[2024-02-22 10:09] LABS: Reticulocyte Count 0.8 % (0.4-2.8)
--- NOTE | 2024-02-22 10:32 | WOUNDNOTE ---
R CALF (ANTERIOR LATERAL)
--- NOTE | 2024-02-22 10:32 | WOUNDNOTE ---
R SHOULDER/UPPER OUTER ARM
--- NOTE | 2024-02-22 10:32 | WOUNDNOTE ---
R ARM (UPPER OUTER)
--- NOTE | 2024-02-22 10:33 | WOUNDNOTE ---
L THIGH (LATERAL)(knee toward L side of photo)
--- NOTE | 2024-02-22 10:34 | W.PN.HOSP.TC ---
Today's Communication/Plan
-
PT/OT
blood transfusions
ID consult
Assessment / Plan
Assessment / Plan
pt is an 83 year old female
Acute on chronic anemia secondary to MDS--Hgb 7 was 8.8 on 02/15/2024--She did have debridement of a foot hematoma on 02/13/2024---Patient follows with [facility] for MDS---Receives Retacrit 60,000 units MO TH---Transfuse 2 unit PRBC, did not get
overnight to due fevers--watch volume, may need lasix inbetween pRBC
MDS--with leukopenia/neutropenia and anemia--follows with [facility] --Retacrit as above--consult heme
rash--concern for shingles--consider acyclovir/ID consult
COVID positive with small/Moderate RIGHT SIDED PLEURAL EFFUSION--Was routinely? tested yesterday at [facility] and was positive--recheck here positive, will need isolation from 02/19 through 03/01-- Reports fatigue, diarrhea for the past 2
days--with acute hypoxemic resp failure/insufficiency as was 92% initially on 6 L and is now currently 100% on room air--hold on active COVID treatments for now as appeared to have no symptoms and was tested routinely?
diarrhea/soft stool--likely due to COVID but pt on doxycycline for infected foot wound-- stool neg for C. diff
Hyperkalemia in setting of SEGUN on CKD 4--maybe related to SEGUN with diuretic (lasix)--s/p [facility]--follow K levels
SEGUN on CKD 4--Creat 2.0, most recent creat 1.4 on 02/15/2024 (baseline 1.1�1.3 in 2021)--IV NSS 500 cc bolus given in ER--Follow BMP--also giving pRBC--both improving
Hx sepsis due to right foot abscess and cellulitis requiring incision and drainage of right foot infected hematoma on 02/13/2024 (02/06 - 02/15/2024 admission)--she was converted to doxycycline 100 mg q12 h until 02/29/24
Chronic heart failure preserved EF on chronic 2 L nasal cannula (chronic hypoxemic resp failure)/Pulmonary HTN/Severe tricuspid regurg/Chronic lower extremity edema--check I/O, daily weights--Hold IV Lasix 40 mg daily--Patient follows with CBC
Paroxysmal A-fib--Continue diltiazem--She has declined AC therapy in the past
Cirrhotic liver/chronic hepatomegaly thought to be related to MDS--Was seen by GI last admission recommended follow-up outpatient
Cachexia secondary to severe protein malnutrition�-BMI 16.6--Consult dietary
DVT prophylaxis--Subcu heparin
code status --DNR
Anticipated Discharge: > 48 hours
Subjective/Interval History
-
Date of Service: February 22, 2024
pt being seen by wound care--concern for shingles on neck, right arm
Objective Data
-
Labs:
Laboratory Results
02/22/24
07:00
WBC 3.3 L
Hgb 6.3 L*
Hct 19.5 L*
Plt Count 292
Sodium 136
Potassium 5.2 H
Chloride 101
Carbon Dioxide 28
BUN 87 H
Creatinine 1.8 H
Glucose 96
Calcium 8.9
Total Bilirubin 1.1
AST 71 H
ALT 24
Alkaline Phosphatase 68
Vital Signs:
max temp for 24 hours
02/22/24
03:16
Temp 102.1 F H
Vital Signs
Temp Pulse Resp BP Pulse Ox
99.8 F 93 16 119/63 100
02/22/24 10:05 02/22/24 10:05 02/22/24 10:05 02/22/24 10:05 02/22/24 07:35
I&O
02/21/24 02/22/24 02/23/24
06:59 06:59 06:59
Intake Total 240 / 240 0 / 0
Balance 240 / 240 0 / 0
Review of Systems
-
All other systems: Reviewed and negative
Physical Exam
-
General: No Apparent Distress and Cachectic
HEENT: Normocephalic and Atraumatic; Negative Oxygen
Respiratory: Clear to Auscultation; Negative Wheezes, Rales, Rhonchi or Crackles
Cardiac: Regular Rhythm and S1/S2; Negative Murmur
GI: Soft, Nontender, Nondistended and Normal Bowel Sounds
Musculoskeletal: No Clubbing and No Cyanosis
Skin: Rash (early fluid filled vesicles on right arm--open scratched area on neck)
Neuro: Awake and Alert
--- NOTE | 2024-02-22 10:35 | WOUNDNOTE ---
L THIGH (ANTERIOR LOWER)
--- NOTE | 2024-02-22 10:38 | WOUNDNOTE ---
R ANKLE (MEDIAL); L ANKLE (LATERAL)
--- NOTE | 2024-02-22 10:39 | WOUNDNOTE ---
[facility] RN note: Patient admitted with Covid, SEGUN on CKD, R sided pleural effusion. Patient admitted from SNF rehab.
See H&P for complete history.
PMH: CKD4, infected R foot with hematoma, s/p R foot I+D by Dr. Aguilera 02/13/24, CHF, chronic LE edema, a fib, cirrhotic liver/chronic hepatomegaly, cachexia d/t poor nutrition.
Wound Location and type/assessment: Patient admitted with: healing R dorsal foot I+D site with scant ss drainage, mild local erythema, wound shallow without undermining. +Palpable R pedal pulse. Trace pedal edema. Stage 1 sacral pressure injury,
newly healed stage 2 back pressure injury with fragile appearing skin. R posterior shoulder, R upper outer arm red rash with several faintly raised small blisters and excoriations on posterior R shoulder. Patient stated she had been scratching her
skin.
Appetite: poor.
Pressure redistribution devices in place: [employer] Accumax. Patient assists with turning.
Plan: R foot dressing changed. Adaptic/abd pad secured with minimal silicone tape applied to open areas R posterior shoulder. Silicone border foam applied to sacrum and back. Waffle air overlay applied and patient turned with help from STACIE Cordoba.
Patient incontinent of urine and then patient voided in bedpan. Bedpan removed and vidhya care given. Dr. Hernandez was in who assessed patient's R foot wound and R shoulder/upper arm skin rash with some slightly raised blisters. Unsure if Zoster vs
other rash.
Confirmed orders with Dr. Hernandez and discussed with STACIE Cordoba.
Care plan to be updated and will follow as needed.
Note to case management of equipment for discharge: Air mattress if not already in place.
--- NOTE | 2024-02-22 11:04 | VATNOTE ---
Order for 2 large bore IVs noted, only one IV documented at this time. Discussed with PCN, pt receiving 2 units PRBCs, but no other IV medications. No need for 2nd IV per PCN.
--- NOTE | 2024-02-22 11:06 | WOUNDNOTE ---
[facility] RN note: Updated Dr. Aguilera on appearance of R foot wound and unable to pack wound anymore d/t shallow wound without undermining. Dr. Aguilera agreeable to suggested wound care and Dr. Aguilera confirmed she can follow up in his office for suture
removal which is due at least 14 days after surgery (surgery date 02/13/24). Discharge instructions updated. This web content writer is away next week. Call wound nurse Julianna Torres or Jaz Pagan if needed.
--- NOTE | 2024-02-22 11:23 | CON.ID ---
Consultation
-
Date/Time Consultation Requested: February 22, 2024 1047
Date/Time Consultation Performed: February 22, 2024 1125
Requesting Provider: Dr. Jaycee Hernandez
Performing Provider: Dr. Renetta Lockwood
Reason for Consultation: Shingles
Chief Complaint / Past History
Chief Complaint
Anemia
History of Present Illness
83 year old female with history of Afib, CKD, MDS on neupogen, procrit, recently hospitalized 02/06 to 02/14 with right foot infected hematoma s/p I+D (02/13/24) and dc'd home to complete 14 days of doxycycline for Citrobacter braakii recovered from OR
cx. 02/20/24 she was routinely screened for COVID at [facility] which was positive. In addition her hemoglobin was noted to be 6.8. She was therefore sent to the ER. Patient was febrile 102, neutropenic. Chest x-ray shows small pleural effusion. She
is currently on her baseline 2 L of oxygen. Patient reports right sided sore throat, diarrhea for the past 2 to 3 days. No headache. No rhinorrhea. No chills. No abdominal pain. No dysuria. On the floor patient noted to have vesicular rash
over the right upper arm and posterior scapula. Patient reports she never had shingles in the past. She cannot recall ever getting the shingles vaccine.
Past History
Additional Past Medical History:
MDS
A-fib
HFpEF
HTN
CKD
Valvular disease
Severe pulmonary HTN
Newly diagnosed cirrhosis
Allergy History:
Sulfa (Sulfonamide Antibiotics) Allergy (Verified 01/04/22 00:16)
Unknown
venom-honey bee Allergy (Verified 01/04/22 00:16)
Swelling
Medications Reviewed: Yes
Current Antibiotics:
Doxycycline po
Social History
Tobacco: Non-Smoker
Alcohol: None
Drug: None
Personal: Single
Living: Halfway
Employment: Not Employed
Family History
Family History: Not Pertinent and Unable to Obtain
Review of Systems
Review of Systems
General: Negative Chills
HEENT: Pharyngitis; Negative Stiff Neck, Sinus Problems or Headache
Cardiovascular: Negative Chest Pain
Respiratory: Negative Dyspnea (chronic) or Cough
Gasteroenterology: Other (+ diarrhea); Negative Nausea or Vomiting
Genital / Urological: Negative Dysuria or Flank Pain
Endocrine: Weakness
Neurological: Negative Headache or Dizziness
All systems: All other systems were reviewed and were negative
Vital Signs
Temp Pulse Resp BP Pulse Ox
98.3 F 83 16 143/56 100
02/22/24 10:21 02/22/24 10:21 02/22/24 10:21 02/22/24 10:21 02/22/24 07:35
Selected Entries
02/22/24
03:16
Temp 102.1 F H
Physical Exam
Physical Exam
Constitutional: Chronically Ill and Cachetic
Eyes: No Conjunctival Hemorrhage and Sclera Anicteric
Pharynx: Negative Erythema
Cardiovascular: Regular Rate and S1/S2
Pulmonary: Clear
Gastrointestinal: Soft, Non Tender, Non Distended and Normal Bowel Sounds
Genito-Urinary: Negative CVA Tenderness
Extremities: Negative Edema
Skin: Rash (Clusters of round papular lesions located right upper arm to across upper scapula slight crossing midline.)
Wound: Other (right foot dorsum I+D site healed. )
Lab / Diagnostic Study Results
02/22/24 07:00
02/22/24 07:00
Abs Immat Gran (auto) 0.0 10^3/uL (0-0.05) 02/22/24 07:00
Absolute Neuts (auto) 0.2 10^3/uL (1.4-6.5) L* 02/22/24 07:00
Absolute Lymphs (auto) 2.3 10^3/uL (1.2-3.4) 02/22/24 07:00
Absolute Monos (auto) 0.6 10^3/uL (0.1-0.6) 02/22/24 07:00
Absolute Basos (auto) 0.0 10^3/uL (0-0.2) 02/22/24 07:00
Immature Gran % 0.6 % (0-0.5) H 02/22/24 07:00
Neutrophils % 7.3 % (42.2-75.2) L 02/22/24 07:00
Lymphocytes % 70.4 % (20.5-51.1) H 02/22/24 07:00
Monocytes % 17.4 % (1.7-9.3) H 02/22/24 07:00
Eosinophils % 3.4 % (0-6) 02/22/24 07:00
Basophils % 0.9 % (0-2) 02/22/24 07:00
Microbiology Results
Micro:
02/21/24 20:42 C. difficile GDH Antigen & Toxins - Final
Feces/Stool Negative for toxigenic C.difficile
02/21/24 20:42 MRSA Screen - Pending
Nose
CXR: Small to moderate size right pleural effusion.
Assessment / Plan
# Neutropenic fever
# Immunocompromised host with MDS
- Ordered blood cx's x 2
-Start cefepime after bcx's drawn
- DC doxycycline.
- Trend fever and wbc.
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
- Concern for possible dissemination as lesions slightly cross midline. Also severely immunocompromised host.
- Airborne isolation for now.
-Start IV acyclovir 380 mg q24h, renally adjusted for CrCl 14
-Follow renal fxn closely while on IV acyclovir.
- Follow lesions for further progression.
# Mild symptomatic COVID-19 infection
- sore throat, diarrhea (C. diff neg), fever
- COVID ag test positive 02/20/24 at [facility]
- pt at high risk progression to severe disease
- start molnupravir x 5 days
- COVID isolation while inpatient. Immunocompromised host can shed virus for prolonged period of time.
# Recent Right foot infected hematoma
- OR cx Citrobacter
- s/p 7 days doxycycline.
- Infection healed/resolved. No need to continue doxycycline.
# Conditions LADLER
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
A-fib
HFpEF
HTN
CKD
Valvular disease
Severe pulmonary HTN
Newly diagnosed cirrhosis
[2024-02-22 11:28] LABS: Folate 14.8 ng/ml (2.76-20); Vitamin B12 > 1000 pg/ml (239-931)
[2024-02-22 12:26] LABS: Ferritin > 10000.0 ng/ml (11.1-264.0)
[2024-02-22] MEDS: ZOVIRAX INJECTION 107.6 MG IV (14:57)
--- NOTE | 2024-02-22 15:43 | CM ---
Patient currently on Covid restrictions. patient is a patient at [facility]; patient has been there since 02/15/24. CM called and left for admissions at [facility];[phone]. CM also left VM with patient brother Presley to review patient prior
level of functioning. Patient spoke with CM and stated that she lived in a 2 story home and is having problems with her roof, she indicated that she wanted to call her accounts administrator to fix it. Patient unable to clarify if she was in [place] [facility] for LTC or STC.
Patient stated that she lives alone and has not had any prior VN or SNF care. Patient PCP is Dr. Olivas per patient but in the transfer form from [facility] Dr. Coleman is listed as PCP.
Per Admissions at [facility] patient was a STC and was discharged as a non bed hold according to [facility] and there are no current beds available at [facility] at this time. When patient medically appropriate new referrals will need to be sent. CM
awaiting call back from family regarding next steps and plan for discharge.
Plan; SNF; pending PT/OT assessment
[2024-02-22] MEDS: MAXIPIME 2000 MG IV (17:17)
[2024-02-22] MEDS: STERILE WATER FOR INJECTION 10 ML IV (17:17)
[2024-02-22] MEDS: MOLNUPIRAVIR (EUA) 800 MG PO (20:14)
[2024-02-23] VITALS (7 sets, daily range): BP systolic 107–128; BP diastolic 48–72; PULSE 70; O2SAT 98
[2024-02-23] MEDS: TUMS 2 TABLET PO (08:39)
[2024-02-23] MEDS: CARDIZEM CD 180 MG PO ×2 (08:39→20:41)
[2024-02-23] MEDS: THERAGRAN 1 TABLET PO (08:39)
[2024-02-23] MEDS: MOLNUPIRAVIR (EUA) 800 MG PO ×2 (08:39→20:41)
[2024-02-23] MEDS: VITAMIN D3 (cholecalciferol) 50 MCG PO (08:40)
[2024-02-23] MEDS: HEPARIN 5000 UNITS SC ×2 (08:40→20:42)
[2024-02-23 08:58] LABS: Hematocrit 31.7 % (37.0-47.0); Hemoglobin 10.8 g/dL (12.0-16.0); Mean Corp Hgb Conc. 34.1 g/dL (33.0-37.0); Mean Corpuscular Hgb 34.2 pg (27.0-31.0); Mean Corpuscular Volume 100.3 fL (81.0-99.0); Mean Platelet Volume 12.3 fL (7.4-10.4); Platelet Count 274 10^3/uL (130-400); Red Blood Cell Count 3.16 10^6/uL (4.20-5.40); Red Cell Dist. Width 25.3 % (11.5-14.5); White Blood Cell Count 3.2 10^3/uL (4.8-10.8)
[2024-02-23 09:44] LABS: Band Neutrophils 0 % (0-3); Segmented Neutrophils 20 % (42-75)
[2024-02-23 09:45] LABS: Eosinophils 7 % (0-6); Lymphocytes 55 % (20-51); Monocytes 18 % (2-9); Platelets Checked Yes
[2024-02-23 09:46] LABS: Anisocytosis 1+; Normal RBC Morphology No; Ovalocytes Slight; Total Cells Counted 100
[2024-02-23 09:47] LABS: Absolute Neutrophils -Man Diff 0.6 10^3/uL (1.4-6.5)
[2024-02-23 10:00] LABS: ALT (SGPT) 28 U/L (0-35); AST (SGOT) 81 U/L (14-36); Albumin 3.4 g/dl (3.5-5.0); Alkaline Phosphatase 74 U/L (38-126); Blood Urea Nitrogen 72 mg/dl (7-17); Calcium 9.2 mg/dl (8.4-10.2); Carbon Dioxide 28 mmol/L (22-30); Chloride 101 mmol/L (98-107); Estimated Creatinine Clearance 15 ml/min; Glucose 115 mg/dl (70-99); Sodium 136 mmol/L (135-145); Total Bilirubin 1.4 mg/dl (0.2-1.3); Total Protein 6.9 g/dl (6.3-8.2); eGFR 29.57
--- NOTE | 2024-02-23 12:14 | W.PN.HOSP.TC ---
Addendum entered and electronically signed by Jaycee Hernandez MD 02/23/24 12:19:
ERROR: on Molnupiravir for COVID
Original Note:
Today's Communication/Plan
-
if remains stable, likely will need SNF but Covid + and shingles
Assessment / Plan
Assessment / Plan
pt is an 83 year old female
Acute on chronic anemia secondary to MDS--Hgb 7 was 8.8 on 02/15/2024, s/p 2 units pRBC now 10.8--She did have debridement of a foot hematoma on 02/13/2024---Patient follows with [facility] for MDS---Receives Retacrit 60,000 units MO,TH---apprec heme
MDS--with leukopenia/neutropenia and anemia--follows with [facility] --Retacrit as above--apprec heme
rash--concern for shingles--cont acyclovir/apprec ID consult
COVID positive with small/Moderate RIGHT SIDED PLEURAL EFFUSION--Was routinely? tested yesterday at [facility] and was positive--recheck here positive, will need isolation from 02/19 through 03/01-- Reports fatigue, diarrhea for the past 2
days--with acute hypoxemic resp failure/insufficiency as was 92% initially on 6 L and is now currently 100% on room air--hold on active COVID treatments for now as appeared to have no symptoms and was tested routinely?
diarrhea/soft stool--likely due to COVID but pt on doxycycline for infected foot wound-- stool neg for C. diff
Hyperkalemia in setting of SEGNU on CKD 4--maybe related to SEGUN with diuretic (lasix)--s/p lokelma--follow K levels
SEGUN on CKD 4--Creat 2.0, most recent creat 1.4 on 02/15/2024 (baseline 1.1�1.3 in 2021)--IV NSS 500 cc bolus given in ER--Follow BMP--also giving pRBC--both improving
Hx sepsis due to right foot abscess and cellulitis requiring incision and drainage of right foot infected hematoma on 02/13/2024 (02/06 - 02/15/2024 admission)--she was converted to doxycycline 100 mg q12 h until 02/29/24
Chronic heart failure preserved EF on chronic 2 L nasal cannula (chronic hypoxemic resp failure)/Pulmonary HTN/Severe tricuspid regurg/Chronic lower extremity edema--check I/O, daily weights--Hold IV Lasix 40 mg daily--Patient follows with CBC
Paroxysmal A-fib--Continue diltiazem--She has declined AC therapy in the past
Cirrhotic liver/chronic hepatomegaly thought to be related to MDS--Was seen by GI last admission recommended follow-up outpatient
Cachexia secondary to severe protein malnutrition�-BMI 16.6--Consult dietary
DVT prophylaxis--Subcu heparin
code status --DNR
Anticipated Discharge: 24 - 48 hours
Subjective/Interval History
-
Date of Service: February 23, 2024
pt sitting in the chair
Objective Data
-
Labs:
Laboratory Results
02/23/24
08:15
WBC 3.2 L
Hgb 10.8 L D
Hct 31.7 L
Plt Count 274
Sodium 136
Potassium 5.0
Chloride 101
Carbon Dioxide 28
BUN 72 H
Creatinine 1.7 H
Glucose 115 H
Calcium 9.2
Total Bilirubin 1.4 H
AST 81 H
ALT 28
Alkaline Phosphatase 74
Vital Signs:
max temp for 24 hours
02/22/24
19:45
Temp 100.0 F
Vital Signs
Temp Pulse Resp BP Pulse Ox
97.6 F 79 12 127/65 100
02/23/24 07:20 02/23/24 08:39 02/23/24 07:20 02/23/24 08:39 02/23/24 09:00
I&O
02/22/24 02/23/24 02/24/24
06:59 06:59 06:59
Intake Total 240 / 240 1120 / 1120
Balance 240 / 240 1120 / 1120
Review of Systems
-
All other systems: Reviewed and negative
Physical Exam
-
General: Appears Chronically Ill and Cachectic
HEENT: Normocephalic, Atraumatic and Oxygen
Respiratory: Clear to Auscultation; Negative Wheezes or Rhonchi
Cardiac: Regular Rhythm and S1/S2; Negative Murmur
GI: Soft, Nontender, Nondistended and Normal Bowel Sounds
Musculoskeletal: No Clubbing, No Cyanosis, No Edema and Other (surgical shoe in place)
Skin: Rash (c/w shingles right upper arm/back)
Neuro: Awake
Psych: Calm
[2024-02-23] MEDS: ZOVIRAX INJECTION 107.6 MG IV (13:53)
--- NOTE | 2024-02-23 14:10 | W.PN.ID1 ---
Date of Service
Date of Service: February 23, 2024
Today's Communication
decisions re: neupogen per oncology
c/w cefepime, acyclovir, molnupiravir
Assessment / Plan
# Neutropenic fever
# Immunocompromised host with MDS
- blood cx's x 2 no growth to date
- c/w cefepime
- decisions regarding Neupogen per oncology
- Trend fever and wbc.
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
- Concern for possible dissemination as lesions slightly cross midline. Also severely immunocompromised host.
- majority of rash now crusted follow
- Airborne isolation for now.
- c/w IV acyclovir 380 mg q24h, renally adjusted for CrCl 15
- Follow renal fxn closely while on IV acyclovir.
- Follow lesions for further progression.
# Mild symptomatic COVID-19 infection
- sore throat, diarrhea (C. diff neg), fever
- COVID ag test positive 02/20/24 at [facility]
- pt at high risk progression to severe disease
- c/w molnupravir x 5 days
- COVID isolation while inpatient. Immunocompromised host can shed virus for prolonged period of time.
# Recent Right foot infected hematoma
- OR cx Citrobacter
- s/p 7 days doxycycline.
- Infection healed/resolved. No need to continue doxycycline.
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
A-fib
HFpEF
HTN
CKD
Valvular disease
Severe pulmonary HTN
Newly diagnosed cirrhosis
Chief Complaint
-: Other (neutropenic fever, zoster, covid)
Subjective / Review of Systems
afebrile over 24 hours now
BP stable
on 2L NC
had 2 untis of prbcs
rash crusting
Vital Signs / Physical Exam
Vital Signs
Vital Signs
Temp Pulse Resp BP Pulse Ox
97.6 F 70 14 107/59 98
02/23/24 07:20 02/23/24 11:10 02/23/24 11:10 02/23/24 11:10 02/23/24 11:10
Physical Exam
Constitutional: No Acute Distress and Chronically Ill
Cardiovascular: Regular Rate and S1/S2; Negative Murmur or Rub
Pulmonary: Clear and Symmetric; Negative Wheezes or Rales
Gastrointestinal: Soft, Non Tender, Non Distended and Normal Bowel Sounds
Skin: Warm, Dry and Rash (majority of rash on right shoulder crusted, an active lesion is still seen though); Negative Jaundice
Objective Data
Lab Data
Lab Results
02/23/24 08:15
02/23/24 08:15
Estimated Creat Clear 15 ml/min 02/23/24 08:15
Total Bilirubin 1.4 mg/dl (0.2-1.3) H 02/23/24 08:15
AST 81 U/L (14-36) H 02/23/24 08:15
ALT 28 U/L (0-35) 02/23/24 08:15
Alkaline Phosphatase 74 U/L (38-126) 02/23/24 08:15
Most recent labs reviewed.
ANC when last assessed yesterday was 0.2
cr now 1.7 crcl 15
note ferritin >10,000
02/20 covid ag +
Micro Results:
02/21/24 20:42 MRSA Screen - Final
Nose No Methicillin Resistant Staphylococcus aureus isolated.
02/22/24 17:36 Blood Culture - Pending
Blood/Venous
02/22/24 17:36 Blood Culture - Pending
Blood/Venous
02/21/24 20:42 C. difficile GDH Antigen & Toxins - Final
Feces/Stool Negative for toxigenic C.difficile
CXR: Small to moderate size right pleural effusion.
[2024-02-23] MEDS: STERILE WATER FOR INJECTION 10 ML IV (16:16)
[2024-02-23] MEDS: MAXIPIME 2000 MG IV (16:16)
--- NOTE | 2024-02-23 16:30 | PTCARENOTE ---
Patient with skin tear on L manuel while moving leg and pulling sock up in chair, skin tear with moderate amount of bloody drainage. Alginate, silicone border foam, and kerlix wrap placed overtop skin tear. Patient changed and repositioned in chair,
states no concerns at this time. Call mccoy and alarm in place on chair.
[2024-02-23 20:54] LABS: Haptoglobin 85 mg/dL (30-200)
[2024-02-24 03:21] VITALS: BP 131/55
[2024-02-24 05:36] VITALS: BMI 15.9
[2024-02-24 07:20] VITALS: BP 128/61
[2024-02-24] MEDS: HEPARIN 5000 UNITS SC ×2 (08:46→19:46)
[2024-02-24] MEDS: TUMS 2 TABLET PO (08:46)
[2024-02-24] MEDS: CARDIZEM CD 180 MG PO ×2 (08:47→19:46)
[2024-02-24] MEDS: VITAMIN D3 (cholecalciferol) 50 MCG PO (08:47)
[2024-02-24] MEDS: THERAGRAN 1 TABLET PO (08:48)
[2024-02-24] MEDS: MOLNUPIRAVIR (EUA) 800 MG PO ×2 (08:56→19:47)
[2024-02-24 11:30] VITALS: BP 133/59
--- NOTE | 2024-02-24 12:36 | W.PN.HOSP.TC ---
Today's Communication/Plan
-
d/c planning
Assessment / Plan
Assessment / Plan
pt is an 83 year old female
Acute on chronic anemia secondary to MDS--Hgb 7 was 8.8 on 02/15/2024, s/p 2 units pRBC now 10.8--She did have debridement of a foot hematoma on 02/13/2024---Patient follows with [facility] for [facility]---Receives Retacrit 60,000 units MO,TH---apprec heme
MDS--with leukopenia/neutropenia and anemia--follows with [facility] --Retacrit as above--apprec heme
rash--concern for shingles--cont acyclovir/apprec ID consult
COVID positive with small/Moderate RIGHT SIDED PLEURAL EFFUSION--Was routinely? tested yesterday at [facility] and was positive--recheck here positive, will need isolation from 02/19 through 03/01-- Reports fatigue, diarrhea for the past 2
days--with acute hypoxemic resp failure/insufficiency as was 92% initially on 6 L and is now currently 100% on room air--molnupravir x 5 days (through 02/26)
diarrhea/soft stool--likely due to COVID but pt on doxycycline for infected foot wound-- stool neg for C. diff
Hyperkalemia in setting of SEGUN on CKD 4--maybe related to SEGUN with diuretic (lasix)--s/p lokelma--follow K levels
SEGUN on CKD 4--Creat 2.0, most recent creat 1.4 on 02/15/2024 (baseline 1.1�1.3 in 2021)--IV NSS 500 cc bolus given in ER--Follow BMP--also giving pRBC--both improving
Hx sepsis due to right foot abscess and cellulitis requiring incision and drainage of right foot infected hematoma on 02/13/2024 (02/06 - 02/15/2024 admission)--she was converted to doxycycline 100 mg q12 h until 02/29/24
Chronic heart failure preserved EF on chronic 2 L nasal cannula (chronic hypoxemic resp failure)/Pulmonary HTN/Severe tricuspid regurg/Chronic lower extremity edema--check I/O, daily weights--Hold IV Lasix 40 mg daily--Patient follows with CBC
Paroxysmal A-fib--Continue diltiazem--She has declined AC therapy in the past
Cirrhotic liver/chronic hepatomegaly thought to be related to MDS--Was seen by GI last admission recommended follow-up outpatient
Cachexia secondary to severe protein malnutrition�-BMI 16.6--Consult dietary
DVT prophylaxis--Subcu heparin
code status --DNR
d/c planning
Anticipated Discharge: 24 - 48 hours
Subjective/Interval History
-
Date of Service: February 24, 2024
pt feeling better
Objective Data
-
Vital Signs:
max temp for 24 hours
02/24/24
03:21
Temp 97.7 F
Vital Signs
Temp Pulse Resp BP Pulse Ox
97.6 F 66 20 133/59 99
02/24/24 07:20 02/24/24 11:30 02/24/24 11:30 02/24/24 11:30 02/24/24 11:30
I&O
02/23/24 02/24/24 02/25/24
06:59 06:59 06:59
Intake Total 1120 / 1120 840 / 840
Balance 1120 / 1120 840 / 840
Review of Systems
-
All other systems: Reviewed and negative
Physical Exam
-
General: Well Developed, Appears Chronically Ill and Cachectic
HEENT: Normocephalic and Atraumatic
Respiratory: Clear to Auscultation; Negative Wheezes or Rhonchi
Cardiac: Regular Rhythm and S1/S2; Negative Murmur
GI: Soft, Nontender, Nondistended and Normal Bowel Sounds
Musculoskeletal: No Clubbing, No Cyanosis and No Edema
Neuro: Awake
Psych: Calm
--- NOTE | 2024-02-24 13:53 | W.PN.ID1 ---
Date of Service
Date of Service: February 24, 2024
Today's Communication
continue current treatment
ANC tomorrow
decisions re: Neupogen per oncology
Assessment / Plan
# Neutropenic fever
# Immunocompromised host with MDS
- blood cx's x 2 no growth to date
- c/w cefepime
- decisions regarding Neupogen per oncology
- Trend fever and wbc - was not done today - would like to reasses ANC tomorrow - its already ordered
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
- Concern for possible dissemination as lesions slightly cross midline. Also severely immunocompromised host.
- majority of rash now crusted - few lesions remaining, follow clinically
- Airborne isolation for now.
- c/w IV acyclovir 380 mg q24h, renally adjusted for CrCl 15
- Follow renal fxn closely while on IV acyclovir.
# Mild symptomatic COVID-19 infection
- COVID ag test positive 02/20/24 at [facility]
- pt at high risk progression to severe disease
- c/w molnupravir x 5 days through 02/26
- COVID isolation while inpatient. Immunocompromised host can shed virus for prolonged period of time.
# Recent Right foot infected hematoma
- OR cx Citrobacter
- s/p 7 days doxycycline.
- Infection healed/resolved. No need to continue doxycycline.
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
A-fib
HFpEF
HTN
CKD
Valvular disease
Severe pulmonary HTN
Newly diagnosed cirrhosis
Chief Complaint
-: Other (neutropenic fever, zoster, covid)
Subjective / Review of Systems
no further fevers x 48 hrs
new skin tear L manuel and thoracic spine
sating 99% on 3L
still with a few vesicles
Vital Signs / Physical Exam
Vital Signs
Vital Signs
Temp Pulse Resp BP Pulse Ox
97.6 F 66 20 133/59 99
02/24/24 07:20 02/24/24 11:30 02/24/24 11:30 02/24/24 11:30 02/24/24 11:30
Physical Exam
Constitutional: No Acute Distress
Cardiovascular: Regular Rate and S1/S2; Negative Murmur or Rub
Pulmonary: Clear and Symmetric; Negative Wheezes or Rales
Gastrointestinal: Soft, Non Tender, Non Distended and Normal Bowel Sounds
Skin: Warm, Dry and Rash (few vesicles remain on the shoulder tip); Negative Jaundice
Objective Data
Lab Data
Estimated Creat Clear 15 ml/min 02/23/24 08:15
Total Bilirubin 1.4 mg/dl (0.2-1.3) H 02/23/24 08:15
AST 81 U/L (14-36) H 02/23/24 08:15
ALT 28 U/L (0-35) 02/23/24 08:15
Alkaline Phosphatase 74 U/L (38-126) 02/23/24 08:15
Most recent labs reviewed.
Micro Results:
02/22/24 17:36 Blood Culture - Preliminary
Blood/Venous No Growth in 24 hours- Final report to follow
02/22/24 17:36 Blood Culture - Preliminary
Blood/Venous No Growth in 24 hours- Final report to follow
02/21/24 20:42 MRSA Screen - Final
Nose No Methicillin Resistant Staphylococcus aureus isolated.
02/21/24 20:42 C. difficile GDH Antigen & Toxins - Final
Feces/Stool Negative for toxigenic C.difficile
CXR: Small to moderate size right pleural effusion.
[2024-02-24 14:16] LABS: Hematocrit 31.1 % (37.0-47.0); Hemoglobin 10.6 g/dL (12.0-16.0); Mean Corp Hgb Conc. 34.1 g/dL (33.0-37.0); Mean Corpuscular Hgb 33.2 pg (27.0-31.0); Mean Corpuscular Volume 97.5 fL (81.0-99.0); Platelet Count 262 10^3/uL (130-400); Red Blood Cell Count 3.19 10^6/uL (4.20-5.40); Red Cell Dist. Width 24.8 % (11.5-14.5); White Blood Cell Count 2.8 10^3/uL (4.8-10.8)
[2024-02-24 14:27] LABS: ALT (SGPT) 34 U/L (0-35); AST (SGOT) 86 U/L (14-36); Albumin 3.4 g/dl (3.5-5.0); Alkaline Phosphatase 79 U/L (38-126); Blood Urea Nitrogen 69 mg/dl (7-17); Calcium 9.2 mg/dl (8.4-10.2); Carbon Dioxide 24 mmol/L (22-30); Chloride 102 mmol/L (98-107); Estimated Creatinine Clearance 19 ml/min; Glucose 160 mg/dl (70-99); Potassium 4.6 mmol/L (3.5-5.1); Sodium 137 mmol/L (135-145); Total Bilirubin 0.9 mg/dl (0.2-1.3); eGFR 37.33
[2024-02-24 14:40] LABS: % Basophils 1.1 % (0-2); % Eosinophils 8.5 % (0-6); % Immature Granulocytes 0.4 % (0-0.5); % Lymphocytes 57.3 % (20.5-51.1); % Monocytes 14.2 % (1.7-9.3); % Neutrophils 18.5 % (42.2-75.2); Absolute Eosinophils 0.2 10^3/uL (0-0.7); Absolute Lymphocytes 1.6 10^3/uL (1.2-3.4); Absolute Monocytes 0.4 10^3/uL (0.1-0.6); Absolute Neutrophils 0.5 10^3/uL (1.4-6.5); Nucleated Red Blood Cells % 0 %
[2024-02-24] MEDS: ZOVIRAX INJECTION 107.6 MG IV (15:29)
[2024-02-24 15:40] VITALS: BP 135/60
[2024-02-24] MEDS: STERILE WATER FOR INJECTION 10 ML IV (18:08)
[2024-02-24] MEDS: MAXIPIME 2000 MG IV (18:08)
[2024-02-24 19:10] VITALS: BP 163/85
[2024-02-24 23:30] VITALS: BP 125/66
--- NOTE | 2024-02-25 01:08 | PTCARENOTE ---
Patient with extensive excoriation on perineum, cleansed with warm wash cloth, barrier ointment applied, brief changed. Turned and repositioned
[2024-02-25 03:11] VITALS: BP 126/64
[2024-02-25 05:44] VITALS: BMI 16.5
[2024-02-25 07:20] VITALS: BP 128/63
--- NOTE | 2024-02-25 08:02 | PN.CDI ---
CDI
- -
CDI:
Physician Documentation Request
Admit Date: 02/21/24 17:56
Dear Doctor Mary,
Please review the following and provide your response in the progress notes.
Clinical Indicators:
02/22/24 10:39 - Wound Note
Wound Location and type/assessment:
#Stage 1 sacral pressure injury, newly healed stage 2 back pressure injury
#...with fragile appearing skin.
#R posterior shoulder, R upper outer arm red rash with several faintly
#...raised small blisters and excoriations on posterior R shoulder.
Physician documentation of the type and location of wounds is required for compliant documentation. Based on the above clinical findings and your assessment, please provide the following in your progress note:
Yes, Stage 1 sacral pressure injury, POA
No, Stage 1 sacral pressure injury
Other (please specify)
1. Location of the ulcer/wound, including laterality.
2. Type (etiology) of ulcer/wound:
- Diabetic ulcer
- Arterial (ischemic) ulcer
- Traumatic wound
- Venous stasis ulcer
- Pressure (decubitus) ulcer
- Non-healing surgical wound
3. If a pressure ulcer, please also include the stage* of the ulcer:
- Stage 1 - Skin intact, non-blanchable redness
- Stage 2 - Partial thickness loss of dermis, includes intact or open blister
- Stage 3 - Full thickness tissue not including bone, tendon or muscle
- Stage 4 - Full thickness tissue loss, including exposed bone, tendon or muscle
- Unstageable - Full thickness loss in which the base of the ulcer is covered by slough (yellow, chauhan, dickens, green or brown) and/or eschar (chauhan, brown or black) in the wound bed.
Use of terms such as suspected, likely, concern for, or probable (associated with a specific diagnosis that is being evaluated, monitored, or treated as if it exists) are acceptable and can be coded in the inpatient setting, when documented at the
time of discharge.
Thank you,
Jaycee Burton RN BSN CCDS
CDI Specialist
please contact via tiger text
Please use your independent medical judgment in providing your response.
*Source: National Pressure Ulcer Advisory Panel (NPUAP)
--- NOTE | 2024-02-25 08:28 | W.PN.ONC ---
Today's Communication / Plan
-
Monitor CBC w/ diff daily
Neutropenic precautions
Monitor fevers
02/24 Await CBC and ANC this morning - decision for Neupogen based on ANC
Transfuse PRN for Hgb <7
s/p 2 units PRBCs
Continue to Hematest all stools
Acute labs were not indicative of hemolysis
Iron panel reflects inflammation
B12/folate adequate
Supportive care
Acyclovir per ID
We will follow. Await today's CBC
Impression
Impression
Acute on chronic anemia
Neutropenic fever
SEGUN w/ CKD4
Hx MDS
Chronic hepatomegaly
COVID- infection w/ hypoxemia
Small to moderate pleural effusion
Right foot abscess/cellulitis s/p I&D 02/12 on Doxycycline
Cachexia
Herpes Zoster
Hyperkalemia
Confusion
Subjective/Objective
Subjective/Objective
patient in bed. she remains confused/forgetful.
Vital Signs:
Vital Signs
Temp Pulse Resp BP Pulse Ox
97.9 F 84 16 128/63 95
02/25/24 07:20 02/25/24 07:20 02/25/24 07:20 02/25/24 07:20 02/25/24 07:20
Lab Results:
Laboratory Data
WBC 2.8 10^3/uL (4.8-10.8) L 02/24/24 13:53
Hgb 10.6 g/dL (12.0-16.0) L 02/24/24 13:53
Plt Count 262 10^3/uL (130-400) 02/24/24 13:53
eGFR 37.33 02/24/24 13:53
physical exam unchanged.
[2024-02-25] MEDS: CARDIZEM CD 180 MG PO ×2 (09:51→20:19)
[2024-02-25] MEDS: VITAMIN D3 (cholecalciferol) 50 MCG PO (09:51)
[2024-02-25] MEDS: TUMS 2 TABLET PO (09:51)
[2024-02-25] MEDS: HEPARIN 5000 UNITS SC ×2 (09:51→20:23)
[2024-02-25] MEDS: THERAGRAN 1 TABLET PO (09:51)
[2024-02-25] MEDS: MOLNUPIRAVIR (EUA) 800 MG PO ×2 (10:08→20:19)
[2024-02-25 11:56] LABS: ALT (SGPT) 42 U/L (0-35); AST (SGOT) 91 U/L (14-36); Albumin 3.6 g/dl (3.5-5.0); Alkaline Phosphatase 90 U/L (38-126); Blood Urea Nitrogen 64 mg/dl (7-17); Carbon Dioxide 27 mmol/L (22-30); Chloride 106 mmol/L (98-107); Estimated Creatinine Clearance 20 ml/min; Glucose 97 mg/dl (70-99); Magnesium 1.7 mg/dl (1.6-2.3); Potassium 4.5 mmol/L (3.5-5.1); Sodium 140 mmol/L (135-145); Total Protein 7.4 g/dl (6.3-8.2); eGFR 37.33
[2024-02-25 11:58] LABS: Hematocrit 31.4 % (37.0-47.0); Mean Corpuscular Hgb 34.1 pg (27.0-31.0); Mean Corpuscular Volume 97.2 fL (81.0-99.0); Mean Platelet Volume 11.7 fL (7.4-10.4); Platelet Count 253 10^3/uL (130-400); Red Blood Cell Count 3.23 10^6/uL (4.20-5.40); Red Cell Dist. Width 23.9 % (11.5-14.5); White Blood Cell Count 3.2 10^3/uL (4.8-10.8)
--- NOTE | 2024-02-25 12:00 | W.PN.HOSP.TC ---
Addendum entered and electronically signed by Jaycee Hernandez MD 02/25/24 15:50:
Patient also had neutropenic fever on admission
Addendum entered and electronically signed by Jaycee Hernandez MD 02/25/24 12:14:
wounds (POA)--apprec wound care documentaion--Stage 1 sacral pressure injury, newly healed stage 2 back pressure injury --R posterior shoulder, R upper outer arm red rash with several faintly--raised small blisters and excoriations on posterior R
shoulder
Original Note:
Today's Communication/Plan
-
d/c planning
Assessment / Plan
Assessment / Plan
pt is an 83 year old female
Acute on chronic anemia secondary to MDS--Hgb 7 was 8.8 on 02/15/2024, s/p 2 units pRBC now 11--She did have debridement of a foot hematoma on 02/13/2024---Patient follows with [facility] for [facility]---Receives Retacrit 60,000 units MO,---apprec heme
MDS--with leukopenia/neutropenia and anemia--follows with [facility] --Retacrit as above--apprec heme
rash--concern for shingles--cont acyclovir/apprec ID consult
COVID positive with small/Moderate RIGHT SIDED PLEURAL EFFUSION--Was routinely? tested yesterday at [facility] and was positive--recheck here positive, will need isolation from 02/19 through 03/01-- Reports fatigue, diarrhea for the past 2
days--with acute hypoxemic resp failure/insufficiency as was 92% initially on 6 L and is now currently 100% on room air--molnupravir x 5 days (through 02/26)
diarrhea/soft stool--likely due to COVID but pt on doxycycline for infected foot wound-- stool neg for C. diff
Hyperkalemia in setting of SEGUN on CKD 4--maybe related to SEGUN with diuretic (lasix)--s/p lokelma--follow K levels
SEGUN on CKD 4--Creat 2.0, most recent creat 1.4 on 02/15/2024 (baseline 1.1�1.3 in 2021)--IV NSS 500 cc bolus given in ER--Follow BMP--also giving pRBC--both improving
Hx sepsis due to right foot abscess and cellulitis requiring incision and drainage of right foot infected hematoma on 02/13/2024 (02/06 - 02/15/2024 admission)--she was converted to doxycycline 100 mg q12 h until 02/29/24
Chronic heart failure preserved EF on chronic 2 L nasal cannula (chronic hypoxemic resp failure)/Pulmonary HTN/Severe tricuspid regurg/Chronic lower extremity edema--check I/O, daily weights--Hold IV Lasix 40 mg daily--Patient follows with CBC
Paroxysmal A-fib--Continue diltiazem--She has declined AC therapy in the past
Cirrhotic liver/chronic hepatomegaly thought to be related to MDS--Was seen by GI last admission recommended follow-up outpatient
Cachexia secondary to severe protein malnutrition�-BMI 16.6--apprec dietary
DVT prophylaxis--Subcu heparin
code status --DNR
d/c planning
Anticipated Discharge: 24 - 48 hours
Subjective/Interval History
-
Date of Service: February 25, 2024
pt without c/o--off O2
Objective Data
-
Labs:
Laboratory Results
02/25/24
10:50
WBC 3.2 L
Hgb 11.0 L
Hct 31.4 L
Plt Count 253
Sodium 140
Potassium 4.5
Chloride 106
Carbon Dioxide 27
BUN 64 H
Creatinine 1.4 H
Glucose 97
Calcium 9.0
Total Bilirubin 1.0
AST 91 H
ALT 42 H
Alkaline Phosphatase 90
Vital Signs:
max temp for 24 hours
02/25/24
03:11
Temp 97.9 F
Vital Signs
Temp Pulse Resp BP Pulse Ox
97.9 F 84 16 128/63 95
02/25/24 07:20 02/25/24 09:51 02/25/24 07:20 02/25/24 09:51 02/25/24 07:20
I&O
02/24/24 02/25/24 02/26/24
06:59 06:59 06:59
Intake Total 840 / 840 480 / 480
Balance 840 / 840 480 / 480
Review of Systems
-
All other systems: Reviewed and negative
Physical Exam
-
General: Appears Chronically Ill and Cachectic
HEENT: Normocephalic and Atraumatic; Negative Oxygen
Respiratory: Clear to Auscultation; Negative Wheezes or Rhonchi
Cardiac: Regular Rhythm and S1/S2; Negative Murmur
GI: Soft, Nontender, Nondistended and Normal Bowel Sounds
Musculoskeletal: No Clubbing, No Cyanosis and No Edema
Neuro: Awake and Alert
[2024-02-25 12:35] LABS: % Basophils 0.9 % (0-2); % Eosinophils 8.8 % (0-6); % Immature Granulocytes 0.6 % (0-0.5); % Lymphocytes 60.5 % (20.5-51.1); % Monocytes 8.2 % (1.7-9.3); Absolute Eosinophils 0.3 10^3/uL (0-0.7); Absolute Lymphocytes 1.9 10^3/uL (1.2-3.4); Absolute Monocytes 0.3 10^3/uL (0.1-0.6); Absolute Neutrophils 0.7 10^3/uL (1.4-6.5); Nucleated Red Blood Cells % 0 %
--- NOTE | 2024-02-25 13:27 | CM ---
Addendum entered by Hemalatha Lantigua 02/25/24 14:06:
Referrals sent to [facility], [facility], [facility], [facility], awaiting responses.
Original Note:
Patient on covid restrictions, CM called to patient brother and left VM x2. CM reached brother @ [phone]. Patient brother was able to clarify with CM that he was in the process of reviewing [place] application for patient for support when she was
discharged from Rehab. CM also called to patient friend who indicated that she understood patient brother to want patient to return to SNF at [facility]. CM spoke with Chrystal at [facility] and they do not have an available bed and will not be able to
accept patient back. CM requested Chrystal reach out to patient brother. CM will also reached out again to patient brother, per patient friend they do not want patient to return to [facility]. Patient brother agreed that CM should send referrals
to local SNF options and he would consider based on availability. CM will continue to follow for discharge planning needs.
Plan; SNF pending bed availability.
[2024-02-25 14:00] VITALS: BP 109/52; PULSE 77; O2SAT 95
--- NOTE | 2024-02-25 14:20 | W.PN.ID1 ---
Date of Service
Date of Service: February 25, 2024
Today's Communication
Continue antibiotics for today
Assessment / Plan
# Neutropenic fever
# Immunocompromised host with MDS
- blood cx's x 2 no growth to date
- c/w cefepime
- decisions regarding Neupogen per oncology
- Trend fever and wbc - ANC 700 today
# Herpes Zoster right C6 dermatome -
- No significant crossing of the midline. Also severely immunocompromised host.
- majority of rash now crusted - few lesions remaining, follow clinically
- c/w IV acyclovir 380 mg q24h, renally adjusted for CrCl 15
- Follow renal fxn closely while on IV acyclovir.
# Mild symptomatic COVID-19 infection
- COVID ag test positive 02/20/24 at [facility]
- pt at high risk progression to severe disease
- c/w molnupravir x 5 days through 02/26
- COVID isolation while inpatient. Immunocompromised host can shed virus for prolonged period of time.
# Recent Right foot infected hematoma
- OR cx Citrobacter
- s/p 7 days doxycycline.
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
A-fib
HFpEF
HTN
CKD
Valvular disease
Severe pulmonary HTN
Newly diagnosed cirrhosis
Chief Complaint
-: Other (neutropenic fever, zoster, covid)
Subjective / Review of Systems
Review of Systems: No Fever, No Chills and No Cough
Vital Signs / Physical Exam
Vital Signs
Vital Signs
Temp Pulse Resp BP Pulse Ox
97.9 F 84 16 128/63 95
02/25/24 07:20 02/25/24 09:51 02/25/24 07:20 02/25/24 09:51 02/25/24 07:20
Physical Exam
Constitutional: Chronically Ill, Non-toxic and Cachetic
Head: Normocephalic
Eyes: Sclera Anicteric
Cardiovascular: S1/S2; Negative S3/S4
Pulmonary: Negative Wheezes, Rales or Rhonchi
Gastrointestinal: Soft, Non Distended, Normal Bowel Sounds and No Rebound
Skin: Warm, Dry and Rash (few vesicles remain on the right shoulder area); Negative Jaundice
Neurological: Awake and Alert
Psychological: Calm
Objective Data
Lab Data
Lab Results
02/25/24 10:50
02/25/24 10:50
Estimated Creat Clear 20 ml/min 02/25/24 10:50
Total Bilirubin 1.0 mg/dl (0.2-1.3) 02/25/24 10:50
AST 91 U/L (14-36) H 02/25/24 10:50
ALT 42 U/L (0-35) H 02/25/24 10:50
Alkaline Phosphatase 90 U/L (38-126) 02/25/24 10:50
Most recent labs reviewed.
Chest X-Ray: Image Reviewed and Report Reviewed
Micro Results:
02/22/24 17:36 Blood Culture - Preliminary
Blood/Venous No Growth in 48 hours- Final report to follow
02/22/24 17:36 Blood Culture - Preliminary
Blood/Venous No Growth in 48 hours- Final report to follow
02/21/24 20:42 MRSA Screen - Final
Nose No Methicillin Resistant Staphylococcus aureus isolated.
02/21/24 20:42 C. difficile GDH Antigen & Toxins - Final
Feces/Stool Negative for toxigenic C.difficile
Imaging:
02/21/2024 CXR: Small to moderate size right pleural effusion.
[2024-02-25] MEDS: ZOVIRAX INJECTION 107.6 MG IV (14:58)
[2024-02-25] MEDS: MAXIPIME 2000 MG IV (15:02)
[2024-02-25] MEDS: STERILE WATER FOR INJECTION 10 ML IV (15:02)
[2024-02-25 15:20] VITALS: BP 107/59
[2024-02-25 23:40] VITALS: BP 136/71
[2024-02-26 06:00] VITALS: BMI 16.1
[2024-02-26 07:25] VITALS: BP 142/74
[2024-02-26] MEDS: CARDIZEM CD PO (08:35)
[2024-02-26] MEDS: MOLNUPIRAVIR (EUA) PO (08:35)
[2024-02-26] MEDS: THERAGRAN PO ×2 (08:36→14:39)
[2024-02-26] MEDS: TUMS PO ×2 (08:36→14:39)
[2024-02-26] MEDS: VITAMIN D3 (cholecalciferol) PO ×2 (08:36→14:39)
[2024-02-26] MEDS: HEPARIN SC ×4 (08:37→20:30)
[2024-02-26] MEDS: LOMOTIL 1 TABLET PO (08:39)
[2024-02-26 08:51] LABS: Hematocrit 30.8 % (37.0-47.0); Hemoglobin 10.5 g/dL (12.0-16.0); Mean Corp Hgb Conc. 34.1 g/dL (33.0-37.0); Mean Corpuscular Hgb 33.3 pg (27.0-31.0); Mean Corpuscular Volume 97.8 fL (81.0-99.0); Platelet Count 246 10^3/uL (130-400); Red Blood Cell Count 3.15 10^6/uL (4.20-5.40); White Blood Cell Count 3.8 10^3/uL (4.8-10.8)
--- NOTE | 2024-02-26 09:01 | PTCARENOTE ---
Pt refusing oral meds at this time. Pt spit medications out onto bed when attempting to administer. Dr. Aquino aware. Will re-attempt later today.
[2024-02-26 09:08] LABS: % Basophils 0.8 % (0-2); % Immature Granulocytes 0.5 % (0-0.5); % Lymphocytes 59.6 % (20.5-51.1); % Monocytes 10.6 % (1.7-9.3); % Neutrophils 19.5 % (42.2-75.2); Absolute Eosinophils 0.3 10^3/uL (0-0.7); Absolute Lymphocytes 2.3 10^3/uL (1.2-3.4); Absolute Monocytes 0.4 10^3/uL (0.1-0.6); Absolute Neutrophils 0.7 10^3/uL (1.4-6.5); Nucleated Red Blood Cells % 0 %
--- NOTE | 2024-02-26 09:21 | W.PN.HOSP.TC ---
Today's Communication/Plan
-
continue current care plan
f/u CBC count
Assessment / Plan
Assessment / Plan
pt is an 83 year old female
Acute on chronic anemia secondary to MDS
-Hgb 7 was 8.8 on 02/15/2024, s/p 2 units pRBC now 11
-She did have debridement of a foot hematoma on 02/13/2024
-Patient follows with [facility] for [facility]
-Receives Retacrit 60,000 units MO,
-Heme/onc following
Neutropenic fever
-ANC stable around 0.7
-Heme considering Neupogen
-On cefepime.
MDS
-with leukopenia/neutropenia and anemia
-follows with [facility]
-Retacrit as above
Shingles
-affecting right C6 dermatome
-Rash is crusting/scabbed
-On renally adjust IV acyclovir
-ID help appreciated
COVID positive
Small/Moderate right Pleural effusion
-Molnupravir x 5 days (through 02/26)
-Not hypoxic. Chest x-ray reviewed.
TME
-possible COVID related
-avoid sedative.
Diarrhea
-Presumed viral illness related.
-C. difficile negative
-As needed Imodium order
SEGUN on CKD stage IV
Hyperkalemia
-Creatinine has trended down to 1.4 which is close to baseline
-Admission potassium of 6 for which patient required Lokelma, normalized as well
-Continue monitoring
Hx sepsis due to right foot abscess and cellulitis requiring incision and drainage of right foot infected hematoma on 02/13/2024 (02/06 - 02/15/2024 admission)
-Wound culture growing Citrobacter baraakii
-she was converted to doxycycline 100 mg q12 h until 02/29/24
Chronic heart failure preserved EF
Pulmonary hypertension
Severe tricuspid regurgitation
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
Paroxysmal atrial fibrillation
Liver cirrhosis presumed due to be MDS related
Severe protein calorie malnutrition
DVT prophylaxis--Subcu heparin
code status --DNR
Anticipated Discharge: Within 24 hours
Subjective/Interval History
-
Date of Service: February 26, 2024
Patient remains pleasantly confused
Refused to take medication in the morning and spitted it out per RN
Remains afebrile
Not on oxygen
Objective Data
-
Labs:
Laboratory Results
02/26/24
08:00
WBC 3.8 L
Hgb 10.5 L
Hct 30.8 L
Plt Count 246
Vital Signs:
Vital Signs
Temp Pulse Resp BP Pulse Ox
97.4 F 80 18 142/74 96
02/26/24 07:25 02/26/24 07:25 02/26/24 07:25 02/26/24 07:25 02/26/24 07:25
I&O
02/25/24 02/26/24 02/27/24
06:59 06:59 06:59
Intake Total 480 / 480 540 / 540
Balance 480 / 480 540 / 540
Review of Systems
-
Unable to obtain full review of systems at this time due to: Acuity
Physical Exam
-
General: Comfortable and Cachectic
HEENT: Negative Oxygen
Respiratory: Clear to Auscultation
Cardiac: Regular Rhythm and S1/S2; Negative Murmur
GI: Soft, Nontender and Nondistended
Neuro: Awake, Alert and Oriented
--- NOTE | 2024-02-26 10:55 | W.PN.UPDATE ---
Update Note
Progress Note Update
WBC slowly improving, afebrile.
Will hold on GCSF.
Continue to monitor CBC w/ diff
[2024-02-26] MEDS: ZOVIRAX INJECTION 107.6 MG IV (14:14)
[2024-02-26] MEDS: IMODIUM 2 MG PO (14:14)
[2024-02-26] MEDS: CARDIZEM CD 180 MG PO ×2 (14:38→20:19)
[2024-02-26] MEDS: MOLNUPIRAVIR (EUA) 800 MG PO ×2 (14:38→20:19)
--- NOTE | 2024-02-26 15:10 | CM ---
Patient has been accepted to [facility] for long-term and rehab services. Brother in agreement. Attending aware. Not medically cleared as yet. Contact at [facility] is Nubia @ [phone].
[2024-02-26] MEDS: MAXIPIME 2000 MG IV (16:03)
[2024-02-26] MEDS: STERILE WATER FOR INJECTION 10 ML IV (16:03)
[2024-02-26 16:19] VITALS: BP 119/60
--- NOTE | 2024-02-26 16:51 | W.PN.ID1 ---
Date of Service
Date of Service: February 26, 2024
Today's Communication
D/C cefepime. Transition acyclovir to valtrex for two additional days. Continue molnupiravir through tomorrow AM.
Assessment / Plan
# Neutropenic fever
# Immunocompromised host with MDS
- blood cx's x 2 no growth to date
- fevers resolved
- no GCSF per Oncology
- D/C further cefepime
# Herpes Zoster right C6 dermatome -
- No significant crossing of the midline.
- Essentially now crusted - few lesions remaining, follow clinically
- Transition to Valtrex for two additional days (1 gm PO q24h)
# Mild symptomatic COVID-19 infection
- COVID ag test positive 02/20/24 at [facility]
- pt at high risk progression to severe disease
- Continue molnupravir to complete 5 days (through 02/26 AM)
# Recent Right foot infected hematoma
- OR cx Citrobacter
- s/p 7 days doxycycline.
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
A-fib
HFpEF
HTN
CKD
Valvular disease
Severe pulmonary HTN
Newly diagnosed cirrhosis
Chief Complaint
-: Other (neutropenic fever, zoster, covid)
Subjective / Review of Systems
Review of Systems: No Fever
Vital Signs / Physical Exam
Vital Signs
Vital Signs
Temp Pulse Resp BP Pulse Ox
97.8 F 80 20 119/60 98
02/26/24 16:19 02/26/24 16:19 02/26/24 16:19 02/26/24 16:19 02/26/24 16:19
Physical Exam
Constitutional: Comfortable, Chronically Ill, Non-toxic and Cachetic
Eyes: Sclera Anicteric
Cardiovascular: S1/S2; Negative S3/S4
Pulmonary: Non Labored; Negative Wheezes, Rales or Rhonchi
Gastrointestinal: Soft, Non Distended, Normal Bowel Sounds and No Rebound
Skin: Warm, Dry and Rash (crusted vesicles on the right shoulder area); Negative Jaundice
Neurological: Awake and Alert
Psychological: Calm
Objective Data
Lab Data
Lab Results
02/26/24 08:00
02/25/24 10:50
Estimated Creat Clear 20 ml/min 02/25/24 10:50
Total Bilirubin 1.0 mg/dl (0.2-1.3) 02/25/24 10:50
AST 91 U/L (14-36) H 02/25/24 10:50
ALT 42 U/L (0-35) H 02/25/24 10:50
Alkaline Phosphatase 90 U/L (38-126) 02/25/24 10:50
Most recent labs reviewed.
Micro Results:
02/22/24 17:36 Blood Culture - Preliminary
Blood/Venous No Growth in 72 hours- Final report to follow
02/22/24 17:36 Blood Culture - Preliminary
Blood/Venous No Growth in 72 hours- Final report to follow
02/21/24 20:42 MRSA Screen - Final
Nose No Methicillin Resistant Staphylococcus aureus isolated.
02/21/24 20:42 C. difficile GDH Antigen & Toxins - Final
Feces/Stool Negative for toxigenic C.difficile
Imaging:
02/21/2024 CXR: Small to moderate size right pleural effusion.
Care Review
Plan reviewed with: Physician (Hospitalist)
[2024-02-26 23:30] VITALS: BP 116/62
[2024-02-27 03:39] VITALS: BP 143/73
[2024-02-27 06:00] VITALS: BMI 16.2
[2024-02-27 07:25] VITALS: BP 143/75
[2024-02-27] MEDS: TUMS 2 TABLET PO (08:44)
[2024-02-27] MEDS: CARDIZEM CD 180 MG PO (08:44)
[2024-02-27] MEDS: HEPARIN 5000 UNITS SC (08:47)
[2024-02-27] MEDS: THERAGRAN 1 TABLET PO (08:47)
[2024-02-27] MEDS: VALTREX 1000 MG PO (08:47)
[2024-02-27] MEDS: VITAMIN D3 (cholecalciferol) 50 MCG PO (08:48)
--- NOTE | 2024-02-27 09:07 | W.PN.HOSP.TC ---
Today's Communication/Plan
-
d/c NH
Assessment / Plan
Assessment / Plan
pt is an 83 year old female
Acute on chronic anemia secondary to MDS
-Hgb 7 was 8.8 on 02/15/2024, s/p 2 units pRBC now 11
-She did have debridement of a foot hematoma on 02/13/2024
-Patient follows with [facility] for MDS
-Receives Retacrit 60,000 units MO,TH
-Heme/oncology following
Neutropenic fever
-ANC stable around 0.7 yesterday
-Heme considering Neupogen
-On cefepime.
MDS
-with leukopenia/neutropenia and anemia
-follows with [facility]
-Retacrit as above
Shingles
-affecting right C6 dermatome
-Rash is crusting/scabbed
-On renally adjust IV acyclovir, one more oral dose of valacyclovir in facility tomorrow and that will finish the course.
-ID help appreciated
COVID positive
Small/Moderate right Pleural effusion
-finished Molnupravir x 5 days (
-Not hypoxic. Chest x-ray reviewed.
TME
-possible COVID related
-avoid sedative.
Diarrhea
-Presumed viral illness related.
-C. difficile negative
-As needed Imodium order
SEGUN on CKD stage IV
Hyperkalemia
-Creatinine has trended down to 1.4 which is close to baseline
-Admission potassium of 6 for which patient required Lokelma, normalized as well
-Continue monitoring
Hx sepsis due to right foot abscess and cellulitis requiring incision and drainage of right foot infected hematoma on 02/13/2024 (02/06 - 02/15/2024 admission)
-Wound culture growing Citrobacter baraakii
-she was converted to doxycycline 100 mg q12 h until 02/29/24
Chronic heart failure preserved EF
Pulmonary hypertension
Severe tricuspid regurgitation
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
Paroxysmal atrial fibrillation
Liver cirrhosis presumed due to be MDS related
Severe protein calorie malnutrition
DVT prophylaxis--Subcu heparin
code status --DNR
More than 30 minutes spent in discharge including
Final examination of the patient
Summarizing hospital stay
Instructions for continuing care to all relevant caregivers
Preparation of discharge records, prescriptions, and referral forms
Total time spent (in minutes): 38 mins
Anticipated Discharge: Today
Subjective/Interval History
-
Date of Service: February 27, 2024
resting comfortable on bed.
remains pleasantly disoriented
afebrile in night
off of oxygen
Objective Data
-
Vital Signs:
Vital Signs
Temp Pulse Resp BP Pulse Ox
98.4 F 76 18 163/67 96
02/27/24 07:25 02/27/24 07:25 02/27/24 07:25 02/27/24 08:44 02/27/24 07:25
I&O
02/26/24 02/27/24 02/28/24
06:59 06:59 06:59
Intake Total 540 / 540 360 / 360
Balance 540 / 540 360 / 360
Review of Systems
-
Unable to obtain full review of systems at this time due to: Acuity
Physical Exam
-
General: Comfortable and Cachectic
HEENT: Negative Oxygen
Respiratory: Clear to Auscultation
Cardiac: Regular Rhythm and S1/S2; Negative Murmur
GI: Soft, Nontender and Nondistended
Neuro: Awake, Alert and Oriented
[2024-02-27 09:10] VITALS: BP 163/67; PULSE 72; O2SAT 94
[2024-02-27] MEDS: MOLNUPIRAVIR (EUA) PO (09:18)
--- NOTE | 2024-02-27 10:10 | CM ---
Patient has been medically cleared for discharge to [facility] for mcc and rehab services. Transport is being scheduled.
NURSE TO NURSE REPORT # [phone]
FAX # [phone]
--- NOTE | 2024-02-27 10:55 | W.PN.ID1 ---
Date of Service
Date of Service: February 27, 2024
Today's Communication
Continue antibiotics as below...
Assessment / Plan
# Neutropenic fever
# Immunocompromised host with MDS
- blood cx's x 2 no growth to date
- fevers resolved
- no GCSF per Oncology
- Completed cefepime
# Herpes Zoster right C6 dermatome -
- No significant crossing of the midline.
- Essentially now crusted - few lesions remaining, follow clinically
- Transition to Valtrex for an additional day (1 gm PO q24h)
# Mild symptomatic COVID-19 infection
- COVID ag test positive 02/20/24 at [facility]
- pt at high risk progression to severe disease
- Continue molnupravir to complete 5 days (through 02/26 AM)
# Recent Right foot infected hematoma
- OR cx Citrobacter
- s/p 7 days doxycycline.
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
A-fib
HFpEF
HTN
CKD
Valvular disease
Severe pulmonary HTN
Newly diagnosed cirrhosis
Chief Complaint
-: Other (neutropenic fever, zoster, covid)
Subjective / Review of Systems
Review of Systems: No Fever
Vital Signs / Physical Exam
Vital Signs
Vital Signs
Temp Pulse Resp BP Pulse Ox
98.4 F 76 18 163/67 96
02/27/24 07:25 02/27/24 07:25 02/27/24 07:25 02/27/24 08:44 02/27/24 07:25
Physical Exam
Constitutional: Comfortable, Chronically Ill, Non-toxic and Cachetic
Cardiovascular: S1/S2; Negative S3/S4
Pulmonary: Non Labored; Negative Wheezes, Rales or Rhonchi
Gastrointestinal: Soft, Non Distended, Normal Bowel Sounds and No Rebound
Skin: Warm, Dry and Rash (crusted vesicles on the right shoulder area); Negative Jaundice
Psychological: Calm
Objective Data
Lab Data
Lab Results
02/26/24 08:00
02/25/24 10:50
Estimated Creat Clear 20 ml/min 02/25/24 10:50
Total Bilirubin 1.0 mg/dl (0.2-1.3) 02/25/24 10:50
AST 91 U/L (14-36) H 02/25/24 10:50
ALT 42 U/L (0-35) H 02/25/24 10:50
Alkaline Phosphatase 90 U/L (38-126) 02/25/24 10:50
Most recent labs reviewed.
Micro Results:
02/22/24 17:36 Blood Culture - Preliminary
Blood/Venous No Growth in 4 days- Final report to follow
02/22/24 17:36 Blood Culture - Preliminary
Blood/Venous No Growth in 4 days- Final report to follow
02/21/24 20:42 MRSA Screen - Final
Nose No Methicillin Resistant Staphylococcus aureus isolated.
02/21/24 20:42 C. difficile GDH Antigen & Toxins - Final
Feces/Stool Negative for toxigenic C.difficile
Imaging:
02/21/2024 CXR: Small to moderate size right pleural effusion.
--- NOTE | 2024-02-27 11:11 | PTCARENOTE ---
patient is confused, X2 assist oob to a chair, poor appetite, incontinent to b/b. assisted w breakfast. airborne precautions maintained. discharge order noted. report called to SNF
--- NOTE | 2024-02-28 07:58 | W.DCSUMMARY ---
Discharge Summary
Discharge Data
Date of Admission: 02/21/24
Date of Discharge: 02/27/24
-
Pending Results: No
Hospital Course
Discharging Physician : Dr Marcos Aquino
Disposition : SNF rehab
Primary care physician : Dr Jake Coleman
Principal Discharge diagnosis :
Acute on chronic anemia
Neutropenic fever
Myelodysplastic syndrome
COVID-19 viral infection
Acute hypoxic respiratory failure
Shingles
Toxic metabolic encephalopathy
Diarrhea
Acute kidney injury on chronic kidney disease stage IV
Hyperkalemia
Chronic Discharge diagnosis :
Chronic diastolic heart failure
Pulmonary hypertension
Severe tricuspid regurgitation
Paroxysmal atrial fibrillation
Cirrhosis
Severe protein calorie malnutrition
Hospital Course :
Patient is 83-year-old female with above-mentioned was sent to ER after tested positive for COVID at skilled nursing. Patient was noted to be hypoxic and requiring 6 L oxygen through nasal cannula. Patient was admitted to hospital for further
evaluation.
For patient COVID-19 viral infection infection disease physicians were involved in care. Patient chest x-ray was showing moderate right-sided pleural effusion. Patient was provided molnupiravir therapy for 5 days in light of history of
MDS/immunocompromise state.
Patient also had worsening anemia and neutropenia and [facility] was involved in care. Patient required 2 negative PRBC. Patient was monitored for neutropenic fever and was kept on empiric antibiotics. Neupogen injections were considered
although absolute neutrophil count improved and did not require it. Patient follows up with [facility] and will need to follow-up with them postdischarge.
Patient also had right upper chest shingles involving C6 dermatome. ID started patient on renally adjusted dose of acyclovir and at discharge was transition to valacyclovir. Patient rash was crusting/scabbed and time of release and did not require
any further isolation from symptoms perspective.
Patient had some diarrhea this was presumed to be viral illness related. C. difficile testing was negative. Patient was provided as needed Imodium.
Patient also had some acute kidney injury on top of underlying chronic kidney disease and associated hyperkalemia. Patient required dose of Lokelma. After improvement of underlying conditions patient renal function improved to baseline as well.
Patient was discharged back to half-way facility post medical stabilization.
Important imaging findings :
None
Procedure findings :
None
Discharge Plan
-
Patient Disposition: [facility]NF
Discharge Diagnosis/Procedures: COVID 19 viral infection, MDS, Herpes Zoster infection
Condition: Fair
Diet: Regular
Activity: As tolerated
Driving Restrictions: No driving
Bathing Restrictions: OK to Shower
Blood Work: CBC w Diff in 1 week at [facility]
Activity Restrictions/Additional Instructions:
Wound Care Instructions
R foot wound-clean with saline, adaptic, gauze, secure with Kerlix or silicone border foam, change daily.
R posterior shoulder affected areas-clean with saline daily, cover with adaptic, ABD pad secured with minimal silicone tape daily prn open skin/drainage.
Sacrum and mid spine-Protective silicone border foam (sacral shaped silicone border foam preferred for sacrum), change q 3 days and prn loosened dressing.
Elevate heels off bed with pillow and/or air chair cushion
Air mattress
Pressure redistributing chair cushion.
Follow up with Dr. Aguilera for R foot suture removal.
Follow up with wound home care associate or at wound care center if needed, call for an appointment.
Referrals:
Jake Coleman MD [Family Provider] - in one week
Prescriptions:
New
valacyclovir 500 mg Tablet
1,000 mg PO DAILY Qty: 1 0RF
Rx Instructions:
Last dose 02/28/24 Morning
Continued
[id number] [Osteo Bi-Flex (5-Loxin)] 1,500-400-100 mg-unit-mg Tablet
1 tab PO BID
diltiazem HCl 180 MG capsule,extended release 24hr
180 mg PO BID
Retacrit 40,000 unit/mL Solution
60,000 unit SC Q2W
furosemide 40 mg Tablet
40 mg PO DAILY Qty: 0 0RF
acetaminophen 325 mg Tablet
650 mg PO Q6HPRN PRN (Reason: mild pain/ fever>100.5F) Qty: 0 0RF
polyethylene glycol 3350 [HealthyLax] 17 gram Powder In Packet
17 g PO DAILY Qty: 0 0RF
therapeutic multivitamin Tablet
1 tab PO DAILY
magnesium hydroxide [Milk of Magnesia] 400 mg/5 mL Suspension
2,400 mg PO HSPRN PRN (Reason: if no bm on 2nd day)
bisacodyl [Dulcolax (bisacodyl)] 10 mg Suppository
10 mg NH [id number] PRN (Reason: if no bm on 3rd day)
Fleet Enema 19-7 gram/118 mL Enema
118 ml NH DAILYPRN PRN (Reason: if no bm on 4th day)
calcium carbonate 500 mg calcium (1,250 mg) Tablet,Chewable
1,000 mg PO DAILY
cholecalciferol (vitamin D3) [Vitamin D3] 50 mcg (2,000 unit) Tablet
50 mcg PO DAILY
lidocaine 4 % adhesive patch,medicated
1 patch topical HS
Discontinued
doxycycline hyclate 100 mg Capsule
100 mg PO Q12 Qty: 27 0RF
Rx Instructions:
Total of 2-week course, end on 02/29/24
Discharge Orders:
Discharge Patient (As Directed); Ordered 02/27/24
Ordered By: Marcos Aquino
Discharge Date and Time
Discharge Date/Time: 02/27/24 13:01
Print Language: ITALIAN
== END 2024-02-27 13:01 | DRG 808 ==
LOC: 2 NORTH 17:56
PROVIDERS: Clinical Nurse Specialist Family Health; Nurse Practitioner Family; Registered Nurse; ADMITTING PHYSICIAN Internal Medicine; ATTENDING PHYSICIAN Hospitalist; EMERGENCY PHYSICIAN Emergency Medicine; FAMILY PHYSICIAN Family Medicine; OTHER PHYSICIAN Internal Medicine Hematology & Oncology; OTHER PHYSICIAN Internal Medicine Infectious Disease
PROC: 3E0DXGC Introduction of Other Therapeutic Substance into Mouth and Pharynx, External Approach (ICD-10-PCS; 2024-02-22)
PROC: 30233N1 Transfusion of Nonautologous Red Blood Cells into Peripheral Vein, Percutaneous Approach (ICD-10-PCS; 2024-02-22)
DX: D70.9 Neutropenia, unspecified (principal); E43 Unspecified severe protein-calorie malnutrition; G92.8 Other toxic encephalopathy; U07.1 COVID-19; N17.9 Acute kidney failure, unspecified; I13.0 Hypertensive heart and chronic kidney disease with heart failure and stage 1 through stage 4 chronic kidney disease, or unspecified chronic kidney disease; N18.4 Chronic kidney disease, stage 4 (severe); I50.32 Chronic diastolic (congestive) heart failure; J96.11 Chronic respiratory failure with hypoxia; Z68.1 Body mass index [BMI] 19.9 or less, adult; R64 Cachexia; D84.9 Immunodeficiency, unspecified; Z66 Do not resuscitate; D46.9 Myelodysplastic syndrome, unspecified; D63.8 Anemia in other chronic diseases classified elsewhere; E87.5 Hyperkalemia; B02.9 Zoster without complications; R50.81 Fever presenting with conditions classified elsewhere; I48.0 Paroxysmal atrial fibrillation; K74.60 Unspecified cirrhosis of liver; R19.7 Diarrhea, unspecified; I07.1 Rheumatic tricuspid insufficiency; L89.151 Pressure ulcer of sacral region, stage 1; L89.112 Pressure ulcer of right upper back, stage 2; Z79.899 Other long term (current) drug therapy; Z99.81 Dependence on supplemental oxygen
CPT/HCPCS: 36415; 51701; 71046; 80048; 80053; 81003; 82607; 82728; 82746; 83010; 83540; 83550; 83615; 83735; 85025; 85045; 86850; 86900; 86901; 86902; 86920; 86922; 87040; 87070; 87324; 87449; 87811; 93005; 94760; 96360; 97163; 97167; 97530; 99285; P9016